=== PATIENT | female | born 1950 | race Caucasian/White ===

== ENCOUNTER → 2019-10-05 10:28 | Outpatient (CLI) | payer MEDICARE, SELFPAY ==
--- NOTE | ~2019-10-05 | MM_ITS ---
EXAMINATION: MM screening jelly BI w elise HISTORY: Screening mammogram TECHNIQUE: Craniocaudal and mediolateral oblique 3-D tomosynthesis images were obtained and synthetic 2-D images were generated. CAD analysis was submitted and interpreted. COMPARISON: No prior mammogram is available for comparison at this institution. BREAST PARENCHYMAL COMPOSITION: The breasts are heterogeneously dense, which may obscure small masses . FINDINGS: There is no evidence of suspicious mass, calcification, or architectural distortion to sugg est malignancy in either breast. There has been no suspicious interval change. IMPRESSION: 1. No mammographic evidence of malignancy. 2. Recommend routine screening mammography in one year. BI-RADS Category 1: Negative Reviewed, dictated and finalized at location A. IGHTEDGE MAN
--- NOTE | ~2019-10-05 | DEXA_ITS ---
Bone Density Report Name: Natasha Brody Age: 69 Sex: Female Ethnicity: White Date of : 1950 Indication: postmenopausal; screening for osteoporosis; Referring Provider: ALBER GARCIA Study: Bone densitometry was performed. Exam Date: October 05, 2019 Accession number: [id number] Bone Density: Region BMD T-score Z-score Classification AP Spine (L1-L4) 0.994 -0.5 1.6 Normal Femoral Neck (Left) 0.677 -1.6 0.2 Osteopenia Total Hip (Left) 0.749 -1.6 -0.1 Osteopenia Femoral Neck (Right) 0.608 -2.2 -0.4 Osteopenia Total Hip (Right) 0.720 -1.8 -0.3 Osteopenia Total Hip Mean 0.735 -1.7 -0.2 Osteopenia World Health Organization criteria for BMD impression classify patients as: Normal (T-score at or above -1.0), Osteopenia (T-score between -1.0 and -2.5), or Osteoporosis (T-score at or below -2.5). 10-year Fracture Risk(1): Major Osteoporotic Fracture 12% Hip Fracture 2.6% Reported Risk Factors: [place] (), Neck BMD=0.608, BMI=23.4 (1) FRAX(R) Version 3.08. Fracture probability calculated for an untreated patient. Fracture probability may be lower if the patient has received treatment. Previous Exams: Region Exam Age BMD T-score BMD Change BMD Change Date g/cm2 vs Baseline vs Previous AP Spine(L1-L4) 10/05/2019 69 0.994 -0.5 0.039* 0.039* 04/11/2005 54 0.955 -0.8 Total Hip(Left) 10/05/2019 69 0.749 -1.6 -0.107* -0.107* 04/11/2005 54 0.856 -0.7 Total Hip(Right) 10/05/2019 69 0.720 -1.8 -0.097* -0.097* 04/11/2005 54 0.817 -1.0 *Denotes significance at 95% confidence level, LSC for AP Spine = 0.022 g/cm2, LSC for Total Hip = 0.027 g/cm2 Clinical Information Provided by Patient: Has used the following medications: Vitamin D, Calcium Patient maximum height was 64.3 Menopause Age: 54 Drinks caffeinated beverages Onset of menses at age 11 Number of children 0 Impression: The patient has low bone mass, based on the Right Femoral Neck T-score. The patient has an estimated ten-year risk of hip fracture of 2.6% and an estimated ten-year risk of major fracture of 12%, based on the WHO FRAX algorithm. The BMD for the Total Hip(Left) decreased, changing by -0.107 since the last DXA exam. The BMD for the Total Hip(Right) decreased, changing by -0.097 since the last DXA exam. Discussion: BONE DENSITY IS LOW AT ONE OR MORE SKELETAL SITES. This patient's lowest T-score is low
== END ==
PROVIDERS: PCP Internal Medicine; Visit Provider Internal Medicine
DX: Z12.31 Encounter for screening mammogram for malignant neoplasm of breast (principal); Z78.0 Asymptomatic menopausal state; M85.852 Other specified disorders of bone density and structure, left thigh; M85.851 Other specified disorders of bone density and structure, right thigh
CPT/HCPCS: 77063; 77067; 77080

== ENCOUNTER → 2021-11-02 12:32 | Outpatient (CLI) | payer MEDICARE, SELFPAY ==
--- NOTE | ~2021-11-02 | MM_ITS ---
EXAMINATION: MM screening jelly BI w elise HISTORY: Screening mammogram TECHNIQUE: Craniocaudal and mediolateral oblique 3-D tomosynthesis images were obtained and synthetic 2-D images were generated. CAD analysis was submitted and interpreted. COMPARISON: 11/01/2019 bilateral screening mammogram BREAST PARENCHYMAL COMPOSITION: The breasts are heterogeneously dense, which may obscure small masses . FINDINGS: There is no evidence of suspicious mass, calcification, or architectural distortion to sugg est malignancy in either breast. There has been no suspicious interval change. IMPRESSION: 1. No mammographic evidence of malignancy. 2. Recommend routine screening mammography in one year. BI-RADS Category 1: Negative Reviewed, dictated and finalized at location A.
== END ==
PROVIDERS: PCP Internal Medicine; Visit Provider Internal Medicine
DX: Z12.31 Encounter for screening mammogram for malignant neoplasm of breast (principal)
CPT/HCPCS: 77063; 77067

== ENCOUNTER → 2022-03-28 10:15 | Outpatient (CLI) | payer MEDICARE, SELFPAY ==
--- NOTE | ~2022-03-28 | XR_ITS ---
EXAMINATION:[id number] DATE: 03/28/2022 10:38 INDICATION: Neck pain TECHNIQUE: AP, lateral, lateral swimmers and odontoid views of the cervical spine are provided. COMPARISON: None FINDINGS: There are 2 mm of anterolisthesis of C3 on C4. The odontoid is intact. No fracture is ident ified. The vertebral body heights are normal. There is severe loss of intervertebral disc space at C4 -5, C5-6, and C6-7. There is moderate to severe multilevel facet and uncovertebral joint osteoarthrit is. Prevertebral soft tissues are normal. IMPRESSION: 1. Severe cervical spondylosis without acute findings. Reviewed, dictated and finalized at location B.
== END ==
PROVIDERS: PCP Internal Medicine; Visit Provider Internal Medicine
DX: M54.2 Cervicalgia (principal); M47.812 Spondylosis without myelopathy or radiculopathy, cervical region
CPT/HCPCS: 72040

== ENCOUNTER 2022-05-29 15:51 | Outpatient (CLI) | payer MEDICARE, SELFPAY ==
--- NOTE | ~2022-05-29 | DEXA_ITS ---
Bone Density Report Name: KRISTOPHER CARTER Age: 71 Sex: Female Ethnicity: White Date of : 1950 Indication: postmenopausal; screening for osteoporosis; inflammatory bowel disease; Referring Provider: DAVID SCHAFFER Study: Bone densitometry was performed. Exam Date: May 29, 2022 Accession number: [id number] Bone Density: Region BMD T-score Z-score Classification AP Spine(L1-L4) 1.039 -0.1 2.2 Normal Femoral Neck (Left) 0.618 -2.1 -0.1 Osteopenia Total Hip (Left) 0.758 -1.5 0.2 Osteopenia Femoral Neck (Right) 0.637 -1.9 0.0 Osteopenia Total Hip (Right) 0.757 -1.5 0.1 Osteopenia Total Hip Mean 0.758 -1.5 0.2 Osteopenia World Health Organization criteria for BMD impression classify patients as: Normal (T-score at or above -1.0), Osteopenia (T-score between -1.0 and -2.5), or Osteoporosis (T-score at or below -2.5). 10-year Fracture Risk(1): Major Osteoporotic Fracture 12% Hip Fracture 2.9% Reported Risk Factors: [place] (), Neck BMD=0.618, BMI=23.2 (1) FRAX(R) Version 3.08. Fracture probability calculated for an untreated patient. Fracture probability may be lower if the patient has received treatment. Clinical Information Provided by Patient: Has used the following medications: Vitamin D, Calcium Has the following medical conditions: Inflammatory bowel diseases Patient maximum height was 64.25 Menopause Age: 41 Onset of menses at age 11 Number of children 0 Impression: The patient has low bone mass, based on the Left Femoral Neck T-score. The patient has an estimated ten-year risk of hip fracture of 2.9% and an estimated ten-year risk of major fracture of 12%, based on the WHO FRAX algorithm. Discussion: BONE DENSITY IS LOW AT ONE OR MORE SKELETAL SITES. This patient's lowest T-score is low at one or more skeletal sites. It meets the World Health Organization's (WHO) criteria for ?low bone mass? (T-score between -1.0 and -2.5). The patient's 10-year risk of fracture as calculated by FRAX is less than the threshold where pharmacological therapy is recommended by the National Osteoporosis Foundation (NOF). However, all treatment decisions require clinical judgment and consideration of individual patient factors, including patient preferences, comorbidities, previous drug use, risk factors not captured in the FRAX model (e.g., frailty, falls, vitamin D deficiency, increased bone turnover, interval significant decline in bone density) and possible under or overestimation of fracture risk by FRAX. The patient should follow a healthful lifestyle (good nutrition with adequate calcium and vitamin D, and appropriate weight-bearing exercise). Follow-Up: Consider repeating this study in 2 to 3 years to reassess this patient's status, or sooner if there is some new clin
== END 2022-05-29 15:52 | disposition home or self-care (01) ==
PROVIDERS: PCP Internal Medicine; Visit Provider Internal Medicine
DX: Z78.0 Asymptomatic menopausal state (principal); M85.89 Other specified disorders of bone density and structure, multiple sites
CPT/HCPCS: 77080

== ENCOUNTER 2022-11-30 08:09 | Outpatient (CLI) | payer MEDICARE, SELFPAY ==
--- NOTE | ~2022-11-30 | MR_ITS ---
MRI of the cervical spine Clinical History: Abnormal cervical spine x-ray Technique: Axial T2-weighted and gradient images, and sagittal T1-weighted, T2-weighted, and STIR cindy ges were acquired. Findings: There is mild reversal normal cervical lordosis. 2 mm anterolisthesis of C3 over C4 present . 2 mm anterolisthesis of C4 over C5 present. No suspicious bone marrow signal abnormality seen. At C2-C3, there is no significant disc bulge or herniation. No spinal canal stenosis, cord compressio n, or neural foraminal narrowing. At C3-C4, there is minimal disc osteophyte complex. No spinal canal stenosis or cord compression. The re is probable mild bilateral facet arthropathy, possible minimal left neural foraminal narrowing. Ri ght neural foramen preserved. At C4-C5, there is moderate degenerative disc narrowing. There is minimal disc osteophyte complex. No spinal canal stenosis or cord compression. Probable minimal bilateral neural foraminal narrowing. At C5-C6, there is moderate degenerative disc narrowing with mild disc bulge. No spinal canal stenosi s or cord compression. There is bilateral neural foraminal narrowing, right worse than left. At C6-C7, there is moderate degenerative disc narrowing. There is minimal disc bulge. No spinal canal stenosis or cord compression. There is probable mild bilateral neural foraminal narrowing, left wors e than right. No abnormal signal seen in the spinal cord. Paravertebral soft tissues are unremarkable. Impression: Mild degenerative spondylosis, as detailed above. 2 mm anterolisthesis of C3 over C4. 2 mm anterolisthesis of C4 over C5. Reviewed, dictated and finalized at [facility]. Impression: Mild degenerative spondylosis, as detailed above. 2 mm anterolisthesis of C3 over C4. 2 mm anterolisthesis of C4 over C5.
== END 2022-11-30 08:10 | disposition home or self-care (01) ==
PROVIDERS: PCP Family Medicine; Visit Provider Family Medicine
DX: M47.812 Spondylosis without myelopathy or radiculopathy, cervical region (principal)
CPT/HCPCS: 72141

== ENCOUNTER 2022-12-10 10:09 | Outpatient (CLI) | payer MEDICARE, SELFPAY ==
--- NOTE | ~2022-12-10 | US_ITS ---
US abdomen limited INDICATION: Gallbladder disease. PROCEDURE: Realtime right upper abdominal ultrasound. COMPARISON: 04/07/2019 FINDINGS: The pancreas is normal without focal mass or pancreatic ductal dilation. Liver echotexture is normal without focal mass or intrahepatic biliary dilatation. There is normal directional flow i n the portal vein. The gallbladder is normal without stones, gallbladder wall thickening or pericholecystic fluid. Comm on bile duct measures 5 mm. No sonographic Lamb's sign. IMPRESSION: 1: Normal limited abdominal ultrasound. Reviewed, dictated and finalized at location L.
== END 2022-12-10 10:10 | disposition home or self-care (01) ==
PROVIDERS: PCP Family Medicine; Visit Provider Family Medicine
DX: R10.10 Upper abdominal pain, unspecified (principal); G89.29 Other chronic pain
CPT/HCPCS: 76705

== ENCOUNTER 2023-03-26 07:51 | Outpatient (CLI) | payer MEDICARE, SELFPAY ==
[2023-03-26 08:54] LABS: Hematocrit 46.5 % (37.0-47.0); Hemoglobin 15.1 g/dL (12.0-15.0); Mean Corpuscular HGB Conc 32.5 g/dl (32-36); Mean Corpuscular Hemoglobin 29.7 pg (26-34); Mean Corpuscular Volume 91.5 fl (80-100); Mean Platelet Volume 8.8 fl (7.4-10.4); Platelet Count Result 550 k/mm3 (150-375); Red Blood Count 5.08 M/mm3 (4.2-5.4); Red Cell Distribution Width 14.6 % (11.5-14.5); White Blood Count 6.9 K/mm3 (4.5-10.0)
== END 2023-03-26 07:52 | disposition home or self-care (01) ==
PROVIDERS: PCP Family Medicine; Visit Provider Family Medicine
DX: R79.89 Other specified abnormal findings of blood chemistry (principal); E03.9 Hypothyroidism, unspecified
CPT/HCPCS: 36415; 82728; 85027

== ENCOUNTER 2023-06-16 08:03 | Outpatient (CLI) | payer MEDICARE, SELFPAY ==
[2023-06-16 08:51] LABS: Basophils Percent Auto 0.5 % (0.2-1.2); Eosinophils Absolute Auto 0.1 K/mm3 (0-0.3); Eosinophils Percent Auto 0.6 % (0-4.4); Hematocrit 44.2 % (37.0-47.0); Hemoglobin 14.4 g/dL (12.0-15.0); Immature Granulocyte Absolute 0.04 K/mm3 (0.00-0.031); Immature Granulocyte Percent A 0.5 % (0-0.5); Lymphocytes Absolute Auto 1.31 K/mm3 (0.9-3.2); Lymphocytes Percent Auto 16.1 % (18.3-44.2); Mean Corpuscular HGB Conc 32.6 g/dl (32-36); Mean Corpuscular Hemoglobin 29.5 pg (26-34); Mean Corpuscular Volume 90.6 fl (80-100); Mean Platelet Volume 8.9 fl (7.4-10.4); Monocytes Absolute Auto 0.8 K/mm3 (0.1-0.6); Monocytes Percent Auto 10.3 % (2.6-8.5); Neutrophils Absolute Auto 5.9 K/mm3 (1.3-6.7); Platelet Count Result 537 k/mm3 (150-375); Red Blood Count 4.88 M/mm3 (4.2-5.4); Red Cell Distribution Width 14.6 % (11.5-14.5); White Blood Count 8.2 K/mm3 (4.5-10.0)
== END 2023-06-16 08:04 | disposition home or self-care (01) ==
LOC: ANHLAB 08:05
PROVIDERS: PCP Family Medicine; Visit Provider Family Medicine
DX: R79.89 Other specified abnormal findings of blood chemistry (principal)
CPT/HCPCS: 36415; 85025

== ENCOUNTER 2023-07-12 13:27 | Outpatient (CLI) | payer MEDICARE, SELFPAY ==
--- NOTE | ~2023-07-12 | MR_ITS ---
MRI of the brain Clinical History: Dizziness and giddiness Technique: Axial and sagittal T1-weighted images were acquired. These were followed by axial T2-weigh juanito, diffusion weighted, gradient, and FLAIR images. Findings: There is no acute infarct, internal hemorrhage, or mass lesion. There are mild chronic whit e matter changes in the periventricular white matter bilaterally. Ventricles and subarachnoid spaces are unremarkable. Orbits are unremarkable. Paranasal sinuses and m astoid air cells are clear. Major intracranial flow voids are intact. Sagittal midline structures are intact. IMPRESSION: Mild chronic microvascular ischemic change, otherwise unremarkable exam. Reviewed, dictated and finalized at location M. PER
== END 2023-07-12 13:28 | disposition home or self-care (01) ==
PROVIDERS: PCP Family Medicine; Visit Provider Family Medicine
DX: R42 Dizziness and giddiness (principal); R68.89 Other general symptoms and signs
CPT/HCPCS: 70551

== ENCOUNTER 2023-07-22 15:53 | Outpatient (CLI) | payer MEDICARE, SELFPAY ==
[2023-07-22 16:42] LABS: Basophils Absolute Auto 0.1 K/mm3 (0.0-0.1); Basophils Percent Auto 0.5 % (0.2-1.2); Eosinophils Absolute Auto 0.1 K/mm3 (0-0.3); Eosinophils Percent Auto 0.5 % (0-4.4); Hematocrit 44.1 % (37.0-47.0); Hemoglobin 14.9 g/dL (12.0-15.0); Immature Granulocyte Absolute 0.04 K/mm3 (0.00-0.031); Immature Granulocyte Percent A 0.4 % (0-0.5); Lymphocytes Absolute Auto 1.29 K/mm3 (0.9-3.2); Lymphocytes Percent Auto 13.2 % (18.3-44.2); Mean Corpuscular HGB Conc 33.8 g/dl (32-36); Mean Corpuscular Hemoglobin 30.3 pg (26-34); Mean Corpuscular Volume 89.8 fl (80-100); Mean Platelet Volume 8.6 fl (7.4-10.4); Monocytes Percent Auto 10.3 % (2.6-8.5); Neutrophils Absolute Auto 7.3 K/mm3 (1.3-6.7); Neutrophils Percent Auto 75.1 % (45.5-73.1); Platelet Count Result 547 k/mm3 (150-375); Red Blood Count 4.91 M/mm3 (4.2-5.4); Red Cell Distribution Width 14.5 % (11.5-14.5); White Blood Count 9.8 K/mm3 (4.5-10.0)
[2023-07-22 16:57] LABS: Erythrocyte Sedimentation Rate 6 mm/hr (0-20)
[2023-07-22 18:45] LABS: Iron 54 ug/dL (37-170)
[2023-07-22 18:58] LABS: Percent Iron Saturation 17 % (20-50)
[2023-07-22 19:58] LABS: Alanine Aminotransferase 22 U/L (6-35); Albumin Level 4.7 g/dL (3.5-5.1); Alkaline Phosphatase 69 U/L (38-126); Anion Gap 12 mmol/L (8-16); Aspartate Amino Transferase 36 U/L (14-36); Bilirubin,Total 0.5 mg/dL (0.2-1.3); Blood Urea Nitrogen 15 mg/dL (7-17); CRP < 0.5 mg/dL (<1.0); Calcium 9.9 mg/dL (8.4-10.2); Carbon Dioxide 22 mmol/L (22-30); Chloride 102 mmol/L (98-107); Estimated Glomerular Filt Rate > 60; Glucose 97 mg/dL (65-110); Potassium 4.2 mmol/L (3.4-5.0); Sodium 136 mmol/L (137-145)
[2023-07-30 12:06] LABS: Block/Specimen ID Not Given; Exon 14; Gene JAK2; JAK2 V617F Mutation Detected (Not Detected); Mutation Frequency 9.7; Mutation Type missense; Specimen Source Blood
== END 2023-07-22 15:54 | disposition home or self-care (01) ==
LOC: ANHLAB 15:55
PROVIDERS: Nurse Practitioner Family; PCP Family Medicine; Visit Provider Internal Medicine Hematology & Oncology
DX: D75.838 Other thrombocytosis (principal); D64.9 Anemia, unspecified
CPT/HCPCS: 36415; 80053; 81270; 82728; 83540; 83550; 85025; 85652; 86140

== ENCOUNTER 2023-10-02 08:20 | Outpatient (CLI) | payer MEDICARE, SELFPAY ==
[2023-10-02 08:43] LABS: Hematocrit 41.5 % (37.0-47.0); Hemoglobin 14.1 g/dL (12.0-15.0); Mean Corpuscular Hemoglobin 31.7 pg (26-34); Mean Corpuscular Volume 93.3 fl (80-100); Mean Platelet Volume 8.6 fl (7.4-10.4); Platelet Count Result 416 k/mm3 (150-375); Red Blood Count 4.45 M/mm3 (4.2-5.4); Red Cell Distribution Width 17.2 % (11.5-14.5)
[2023-10-02 12:04] LABS: Alanine Aminotransferase 21 U/L (6-35); Albumin Level 4.4 g/dL (3.5-5.1); Alkaline Phosphatase 63 U/L (38-126); Anion Gap 3 mmol/L (8-16); Aspartate Amino Transferase 34 U/L (14-36); Bilirubin,Total 0.7 mg/dL (0.2-1.3); Blood Urea Nitrogen 12 mg/dL (7-17); Calcium 9.7 mg/dL (8.4-10.2); Carbon Dioxide 30 mmol/L (22-30); Chloride 104 mmol/L (98-107); Estimated Glomerular Filt Rate > 60; Glucose 91 mg/dL (65-110); Potassium 4.2 mmol/L (3.4-5.0); Sodium 137 mmol/L (137-145); Uric Acid 2.5 mg/dL (2.5-7.5)
== END 2023-10-02 08:21 | disposition home or self-care (01) ==
LOC: ANHLAB 08:25
PROVIDERS: Nurse Practitioner Family; PCP Family Medicine; Visit Provider Internal Medicine Hematology & Oncology
DX: E03.9 Hypothyroidism, unspecified (principal); E78.5 Hyperlipidemia, unspecified; F41.9 Anxiety disorder, unspecified; M54.2 Cervicalgia; M85.89 Other specified disorders of bone density and structure, multiple sites; R42 Dizziness and giddiness; D47.3 Essential (hemorrhagic) thrombocythemia
CPT/HCPCS: 36415; 80053; 84443; 84550; 85027

== ENCOUNTER 2023-10-23 14:58 | Outpatient (CLI) | payer MEDICARE, SELFPAY ==
[2023-10-23 17:21] LABS: D Dimer < 0.27 ug/mL (<0.48)
== END 2023-10-23 14:59 | disposition home or self-care (01) ==
LOC: ANHLAB 15:01
PROVIDERS: PCP Family Medicine; Visit Provider Nurse Practitioner Family
DX: R23.8 Other skin changes (principal); M79.89 Other specified soft tissue disorders
CPT/HCPCS: 36415; 85380

== ENCOUNTER 2024-01-06 08:36 | Outpatient (CLI) | payer MEDICARE, SELFPAY ==
[2024-01-06 09:05] LABS: Hematocrit 41.3 % (37.0-47.0); Hemoglobin 14.2 g/dL (12.0-15.0); Mean Corpuscular HGB Conc 34.4 g/dl (32-36); Mean Corpuscular Hemoglobin 35.1 pg (26-34); Mean Platelet Volume 8.4 fl (7.4-10.4); Platelet Count Result 378 k/mm3 (150-375); Red Blood Count 4.05 M/mm3 (4.2-5.4); Red Cell Distribution Width 13.9 % (11.5-14.5); White Blood Count 6.3 K/mm3 (4.5-10.0)
[2024-01-06 10:21] LABS: Anion Gap 5 mmol/L (4-12); Blood Urea Nitrogen 17 mg/dL (7-17); Calcium 9.6 mg/dL (8.4-10.2); Carbon Dioxide 27 mmol/L (22-30); Chloride 105 mmol/L (98-107); Estimated Glomerular Filt Rate > 60; Glucose 96 mg/dL (65-110); Potassium 4.2 mmol/L (3.4-5.0); Sodium 137 mmol/L (137-145)
== END 2024-01-06 08:37 | disposition home or self-care (01) ==
PROVIDERS: Nurse Practitioner Family; PCP Family Medicine; Visit Provider Internal Medicine Hematology & Oncology
DX: D47.3 Essential (hemorrhagic) thrombocythemia (principal)
CPT/HCPCS: 36415; 80048; 85027

== ENCOUNTER 2024-02-10 15:28 | Outpatient (CLI) | payer MEDICARE, SELFPAY ==
--- NOTE | ~2024-02-10 | MM_ITS ---
EXAMINATION: MM screening jelly BI w elise HISTORY: Screening TECHNIQUE: Craniocaudal and mediolateral oblique 3-D tomosynthesis images were obtained and synthetic 2-D images were generated. CAD analysis was submitted and interpreted. COMPARISON: Comparison to multiple prior studies sequentially, with oldest reviewed study dated 10/2019. BREAST PARENCHYMAL COMPOSITION: Not dense: There are scattered areas of fibroglandular density. FINDINGS: There is no evidence of suspicious mass, calcification, or architectural distortion to sugg est malignancy in either breast. There has been no suspicious interval change. IMPRESSION: 1. No mammographic evidence of malignancy. 2. Recommend routine screening mammography in one year. BI-RADS Category 1: Negative Reviewed, dictated and finalized at location B.
== END 2024-02-10 15:29 ==
LOC: MICIMG 15:29
PROVIDERS: PCP Family Medicine; Visit Provider Family Medicine
DX: Z12.31 Encounter for screening mammogram for malignant neoplasm of breast (principal)
CPT/HCPCS: 77063; 77067

== ENCOUNTER 2024-02-24 08:37 | Outpatient (CLI) | payer MEDICARE, SELFPAY ==
[2024-02-24 08:52] LABS: Basophils Absolute Auto 0.1 K/mm3 (0.0-0.1); Basophils Percent Auto 0.7 % (0.2-1.2); Eosinophils Percent Auto 0.5 % (0-4.4); Hematocrit 43.9 % (37.0-47.0); Hemoglobin 14.9 g/dL (12.0-15.0); Immature Granulocyte Absolute 0.03 K/mm3 (0.00-0.031); Immature Granulocyte Percent A 0.4 % (0-0.5); Lymphocytes Percent Auto 14.7 % (18.3-44.2); Mean Corpuscular HGB Conc 33.9 g/dl (32-36); Mean Corpuscular Hemoglobin 34.2 pg (26-34); Mean Corpuscular Volume 100.7 fl (80-100); Mean Platelet Volume 8.7 fl (7.4-10.4); Monocytes Absolute Auto 0.8 K/mm3 (0.1-0.6); Monocytes Percent Auto 10.7 % (2.6-8.5); Neutrophils Absolute Auto 5.5 K/mm3 (1.3-6.7); Platelet Count Result 509 k/mm3 (150-375); Red Blood Count 4.36 M/mm3 (4.2-5.4); Red Cell Distribution Width 13.2 % (11.5-14.5); White Blood Count 7.5 K/mm3 (4.5-10.0)
[2024-02-24 11:59] LABS: Alanine Aminotransferase 20 U/L (6-35); Albumin Level 4.6 g/dL (3.5-5.1); Alkaline Phosphatase 61 U/L (38-126); Anion Gap 10 mmol/L (4-12); Aspartate Amino Transferase 33 U/L (14-36); Bilirubin,Total 0.8 mg/dL (0.2-1.3); Blood Urea Nitrogen 14 mg/dL (7-17); Calcium 9.7 mg/dL (8.4-10.2); Carbon Dioxide 26 mmol/L (22-30); Chloride 101 mmol/L (98-107); Estimated Glomerular Filt Rate > 60; Glucose 101 mg/dL (65-110); Potassium 4.1 mmol/L (3.4-5.0); Sodium 137 mmol/L (137-145)
== END 2024-02-24 08:38 | disposition home or self-care (01) ==
LOC: ANHLAB 08:39
PROVIDERS: PCP Family Medicine; Visit Provider Internal Medicine Hematology & Oncology
DX: D47.3 Essential (hemorrhagic) thrombocythemia (principal)
CPT/HCPCS: 36415; 80053; 85025

== ENCOUNTER 2024-03-12 09:39 | Outpatient (CLI) | payer MEDICARE, SELFPAY ==
[2024-03-12 13:29] LABS: IFOB Positive Control Positive; Immunochemical Fecal Occult Bl Negative (N)
== END 2024-03-12 09:40 | disposition home or self-care (01) ==
PROVIDERS: PCP Family Medicine; Visit Provider Internal Medicine Hematology & Oncology
DX: D64.9 Anemia, unspecified (principal); K92.2 Gastrointestinal hemorrhage, unspecified
CPT/HCPCS: 82274

== ENCOUNTER 2024-04-12 08:21 | Outpatient (CLI) | payer MEDICARE, SELFPAY ==
[2024-04-12 08:42] LABS: Basophils Percent Auto 0.7 % (0.2-1.2); Eosinophils Percent Auto 0.5 % (0-4.4); Hematocrit 43.6 % (37.0-47.0); Hemoglobin 14.8 g/dL (12.0-15.0); Immature Granulocyte Absolute 0.04 K/mm3 (0.00-0.031); Immature Granulocyte Percent A 0.7 % (0-0.5); Lymphocytes Absolute Auto 1.16 K/mm3 (0.9-3.2); Lymphocytes Percent Auto 19.1 % (18.3-44.2); Mean Corpuscular HGB Conc 33.9 g/dl (32-36); Mean Corpuscular Hemoglobin 33.9 pg (26-34); Mean Corpuscular Volume 99.8 fl (80-100); Mean Platelet Volume 8.6 fl (7.4-10.4); Monocytes Absolute Auto 0.6 K/mm3 (0.1-0.6); Monocytes Percent Auto 10.2 % (2.6-8.5); Neutrophils Absolute Auto 4.2 K/mm3 (1.3-6.7); Neutrophils Percent Auto 68.8 % (45.5-73.1); Platelet Count Result 542 k/mm3 (150-375); Red Blood Count 4.37 M/mm3 (4.2-5.4); Red Cell Distribution Width 14.1 % (11.5-14.5); White Blood Count 6.1 K/mm3 (4.5-10.0)
[2024-04-12 10:22] LABS: Cholesterol 176 mg/dL (0-200); HDL Direct 103 mg/dL; Triglycerides 56 mg/dL (<150)
[2024-04-12 10:27] LABS: Anion Gap 9 mmol/L (4-12); Blood Urea Nitrogen 14 mg/dL (7-17); Calcium 9.3 mg/dL (8.4-10.2); Carbon Dioxide 28 mmol/L (22-30); Chloride 97 mmol/L (98-107); Estimated Glomerular Filt Rate > 60; Glucose 95 mg/dL (65-110); Potassium 4.1 mmol/L (3.4-5.0); Sodium 134 mmol/L (137-145)
[2024-04-12 10:33] LABS: LDL Cholesterol Direct 51 mg/dL
[2024-04-12 10:37] LABS: Vitamin D 25 Hydroxy 45.6 ng/mL
== END 2024-04-12 08:22 | disposition home or self-care (01) ==
LOC: ANHLAB 08:23
PROVIDERS: PCP Family Medicine; Visit Provider Internal Medicine Hematology & Oncology
DX: E03.9 Hypothyroidism, unspecified (principal); F41.9 Anxiety disorder, unspecified; R07.89 Other chest pain; R68.89 Other general symptoms and signs; R42 Dizziness and giddiness; D47.3 Essential (hemorrhagic) thrombocythemia; M85.89 Other specified disorders of bone density and structure, multiple sites
CPT/HCPCS: 36415; 80048; 80061; 82306; 82607; 84443; 85025; 85027

== ENCOUNTER 2024-07-19 09:34 | Outpatient (CLI) | payer MEDICARE, SELFPAY ==
[2024-07-19 10:06] LABS: Basophils Percent Auto 0.3 % (0.2-1.2); Eosinophils Percent Auto 0.3 % (0-4.4); Hematocrit 45.2 % (37.0-47.0); Hemoglobin 15.5 g/dL (12.0-15.0); Immature Granulocyte Absolute 0.06 K/mm3 (0.00-0.031); Immature Granulocyte Percent A 0.7 % (0-0.5); Lymphocytes Absolute Auto 1.02 K/mm3 (0.9-3.2); Lymphocytes Percent Auto 11.7 % (18.3-44.2); Mean Corpuscular HGB Conc 34.3 g/dl (32-36); Mean Corpuscular Volume 96.4 fl (80-100); Mean Platelet Volume 8.7 fl (7.4-10.4); Monocytes Absolute Auto 1.1 K/mm3 (0.1-0.6); Monocytes Percent Auto 12.6 % (2.6-8.5); Neutrophils Absolute Auto 6.5 K/mm3 (1.3-6.7); Neutrophils Percent Auto 74.4 % (45.5-73.1); Platelet Count Result 590 k/mm3 (150-375); Red Blood Count 4.69 M/mm3 (4.2-5.4); Red Cell Distribution Width 14.1 % (11.5-14.5); White Blood Count 8.7 K/mm3 (4.5-10.0)
[2024-07-19 12:06] LABS: Anion Gap 7 mmol/L (4-12); Blood Urea Nitrogen 11 mg/dL (7-17); Calcium 9.6 mg/dL (8.4-10.2); Carbon Dioxide 25 mmol/L (22-30); Chloride 102 mmol/L (98-107); Estimated Glomerular Filt Rate > 60; Glucose 107 mg/dL (65-110); Potassium 4.3 mmol/L (3.4-5.0); Sodium 134 mmol/L (137-145)
--- OUTSIDE RECORDS SUMMARY | 2024-07-26 10:05 | XMS_ITS | Encounter Summary ---
Author Organization [facility] Address [facility] [facility] [place] [address] Care Team Providers Care Wood And Hardware Outfitter Name Role Phone Lex Grimm MD Primary Care Provider [phone] Encounter Details Date Type Department Care Team (Latest Contact Info) Description 03/24/2018 Abstract [facility] , Tigre Vásquez MD Social History Tobacco Use Types Packs/Day Years Used Date Smoking Tobacco: Never Assessed Comments Unknown Sex and Gender Information Value Date Recorded Sex Assigned at Not on file Legal Sex Female 4:31 PM CDT Gender Identity Not on file Sexual Orientation Not on file documented as of this encounter Plan of Treatment Not on file documented as of this encounter Visit Diagnoses Not on filedocumented in this encounter Care Teams Wood And Hardware Outfitter Relationship Specialty Start Date End Date Lex Grimm MD PCP - General 09/16/16 documented as of this encounter
--- OUTSIDE RECORDS SUMMARY | 2024-07-26 10:05 | XMS_ITS | Encounter Summary ---
Author Organization [facility] Address [address] [place] [address]. [place], [place] [address] [place] [address] Care Team Providers Care Client Director Name Role Phone Lex Grimm MD Primary Care Provider [phone] Encounter Details Date Type Department Care Team (Late st Contact Info) Description 09/16/2016 Abstract [facility] Physical Therapy [address] [place] [address] Rudy Fraser MD [address] [place] [address] Social History Tobacco Use Types Packs/Day Years Used Date Smoking Tobacco: Never Assessed Comments Unknown Sex and Gender Information Value Date Recorded Sex Assigned at Not on file Legal Sex Female 4:31 PM CDT Gender Identity Not on file Sexual Orientation Not on file documented as of this encounter Plan of Treatment Not on file documented as of this encounter Visit Diagnoses Diagnosis Sprain of ligament of right ankle Sprain of ankle, unspecified site documented in this encounter Care Teams Client Director Relationship Specialty Start Date End Date Lex Grimm MD PCP - General 09/16/16 documented as of this encounter
--- OUTSIDE RECORDS SUMMARY | 2024-07-26 10:05 | XMS_ITS | Encounter Summary ---
Author Organization [facility] - [facility] Address [address] [facility] [place] [address] [place] [address] Care Team Providers Care Petroleum Refinery Laborer Name Role Phone eLx Grimm MD Primary Care Provider [phone] Encounter Details Date Type Department Care Team (Late st Contact Info) Description 09/16/2016 Abstract [facility] Medical Group Multispecialty Care - [facility] [address] [facility] [place] [address] Rudy Fraser MD [address] [place] [address] Social History Tobacco Use Types Packs/Day Years Used Date Smoking Tobacco: Never Assessed Comments Unknown Sex and Gender Information Value Date Recorded Sex Assigned at Not on file Legal Sex Female 4:31 PM CDT Gender Identity Not on file Sexual Orientation Not on file documented as of this encounter Progress Notes * Rudy Fraser MD - 09/16/2016 10:15 AM CST History of Present Illness CHIEF COMPLAINT: Followup of ankle sprain. HISTORY OF PRESENT ILLNESS: Ms. Brody is now back to work. She is almost 3 months off from her injury. She has occasional soreness in the foot but she is doing really well. She is back working 4 hours at a time, taking breaks occasionally. PHYSICAL EXAMINATION: She is alert and oriented. No tenderness to palpation about the medial or lateral malleoli. Good endpoint with tilt and drawer test. No swelling that I can appreciate. IMAGING: None. ASSESSMENT: Doing well status post inversion injury with talar neck avulsion. PLAN: We are going to have her keep working with no restrictions. I will see her back on an as needed basis. She has a brace that she can use if she needs as well. She has asked about orthotics and Ithink she is a pretty normal fit. I do not think she necessarily requires orthotic if she wishes tohave one then certainly that is okay. She says she has some Dr. Clarke's once and she is going to give that a try first. I think that is fine. Active Problems 1. Ankle pain (719.47) (M25.579) 2. Ankle sprain (845.00) (S93.409A) Past Medical History 1. History of Anxiety (300.00) (F41.9) 2. History of depression (V11.8) (Z86.59) 3. History of esophageal reflux (V12.79) (Z87.19) 4. History of thyroid disease (V12.29) (Z86.39) Surgical History 1. Denied: History of Surgery Family History Mother 1. Family history of depression (V17.0) (Z81.8) 2. Family history of hypertension (V17.49) (Z82.49) Father 3. Family history of cerebrovascular accident (CVA) (V17.1) (Z82.3) 4. Family history of depression (V17.0) (Z81.8) Social History ?? Never a smoker ?? Occasional alcohol use ?? Occupation ?? Current Meds 1. ALPRAZolam 0.25 MG Oral Tablet; Therapy: (Recorded:[id number]) to Recorded 2. Citalopram Hydrobromide 10 MG Oral Tablet; Therapy: (Recorded:[id number]) to Recorded 3. Levothroid 25 MCG TABS; Therapy: (Recorded:[id number]) to Recorded 4. Pantoprazole Sodium 20 MG Oral Tablet Delayed Release; Therapy: (Recorded:[id number]) to Recorded Allergies 1. NSAIDs Signatures Electronically signed by : Rudy Fraser M.D.; Sep 17 2016 1:20PM SPA EXPERIENCE COORDINATOR (Author) documented in this encounter Plan of Treatment Not on file documented as of this encounter Visit Diagnoses Not on filedocumented in this encounter Care Teams Petroleum Refinery Laborer Relationship Specialty Start Date End Date Lex Grimm MD PCP - General 09/16/16 documented as of this encounter
--- OUTSIDE RECORDS SUMMARY | 2024-07-26 10:05 | XMS_ITS | Clinical Summary ---
Author Organization [facility] Address [address] [place] [address]. [place], [place] [address] [place] [address] Care Team Providers Care Dough Cutter Name Role Phone Lex Grimm MD Primary Care Provider Social History Tobacco Use Types Packs/Day Years Used Date Smoking Tobacco: Never Assessed Comments Unknown Sex and Gender Information Value Date Recorded Sex Assigned at Not on file Legal Sex Female 4:31 PM CDT Gender Identity Not on file Sexual Orientation Not on file Last Filed Vital Signs Vital Sign Reading Time Taken Comments Blood Pressure 142/82 08/19/2016 10:29 AM ESCORT SERVICE ATTENDANT Pulse - - Temperature - - Respiratory Rate - - Oxygen Saturation - - Inhaled Oxygen Concentration - - Weight 52.6 kg (116 lb) 07/05/2016 8:46 AM ESCORT SERVICE ATTENDANT Height 163.8 cm (5' 4.5 ) 07/05/2016 8:46 AM ESCORT SERVICE ATTENDANT Body Mass Index 19.6 07/05/2016 8:46 AM ESCORT SERVICE ATTENDANT Plan of Treatment Health Maintenance Due Date Last Done Comments Colorectal Cancer Screening Colonoscopy (10 Years) 1950 Hepatitis C 1967 DTaP, Tdap and Td Vaccines ( 1 - Tdap) 1968 Mammogram Screening 1989 Zoster Vaccines (1 of 2) 1999 Dexa Scan (General) 2014 Pneumococcal Vaccine: 65+ Ye ars (1 of 1 - PCV) 2014 COVID-19 Vaccine ( - 2023-2 5 season) 2024 Influenza Adult (#1) 2024 RSV Immunization or 60+ Years (1 - 1-dose 75+ series) 2024 Meningococcal Vaccine Aged Out No joseph gwyn eligible based on patient's age to complete this topic RSV Immunizations Under 20 Months Aged Out No longer eligible based on patient's age to complete this topic Care Teams Dough Cutter Relationship Specialty Start Date End Date Lex Grimm MD PCP - General 09/16/16
--- OUTSIDE RECORDS SUMMARY | 2024-07-26 10:06 | XMS_ITS | Encounter Summary ---
Author Organization [facility] Address [address] [place] [address]. [place] [id number] [place] [address] Care Team Providers Care Wedding Photographer Name Role Phone Lex Grimm MD Primary Care Provider [phone] Lex Grimm MD Primary Care Provider [phone] Encounter Details Date Type Department Care Team (Latest Contact Info) Description 09/12/2016 Abstract [facility] Medical [facility] Social History Tobacco Use Types Packs/Day Years [...] on filedocumented in this encounter Care Teams Wedding Photographer Relationship Specialty Start Date End Date Lex Grimm MD PCP - General 09/16/16 Lex Grimm MD PCP - General 09/12/16 09/15/16 documented as of this encounter
--- OUTSIDE RECORDS SUMMARY | 2024-07-26 10:06 | XMS_ITS | Encounter Summary ---
Author Organization [facility] Address [facility] [place] [address] [place] [address] Care Team Providers Care Electronic Communications Technician Name Role Phone Lex Grimm MD Primary Care Provider + Lex Grimm MD Primary Care Provider + Lex Grimm MD Primary Care Provider + Lex Grimm MD Primary Care Provider [phone] Lex Grimm MD Primary Care Provider +[phone] Lex Grimm MD Primary Care Provider +[phone] Lex Grimm MD Primary Care Provider +[phone] Lex Grimm MD Primary Care Provider +[phone] Lex Grimm MD Primary Care Provider + [phone] Encounter Details Date Type Department Care Team (Late st Contact Info) Description 08/19/2016 Abstract [facility] Multispecialty Care - [facility] [address] [facility] [place] [id number] Rudy Fraser MD [address] [place] [address] Social History Tobacco Use Types Packs/Day Years Used Date Smoking Tobacco: Never Assessed Comments Unknown Sex and Gender Information Value Date Recorded Sex Assigned at Not on file Legal Sex Female 4:31 PM CDT Gender Identity Not on file Sexual Orientation Not on file documented as of this encounter Last Filed Vital Signs Vital Sign Reading Time Taken Comments Blood Pressure 142/82 08/19/2016 10:29 AM DETASSELER Pulse - - Temperature - - Respiratory Rate - - Oxygen Saturation - - Inhaled Oxygen Concentration - - Weight - - Height - - Body Mass Index - - documented in this encounter Progress Notes * Rudy Fraser MD - 08/19/2016 10:00 AM CST History of Present Illness CHIEF COMPLAINT: Followup right ankle sprain. HISTORY OF PRESENT ILLNESS: Ms. Brody is here for followup of her right ankle injury. This was on 06/28/2016. She has been doing physical therapy with Malcolm next door a couple of times a week. Hesays he would like to continue the therapy. He thinks her pain is definitely improving but she is not fully better. She has been out of the lace up ankle brace for a few days now. She continues to have some pain laterally more than medially and some dorsally as well. 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 PHYSICAL EXAMINATION: She is alert and oriented. Mild tenderness over the lateral malleolus. Some tenderness at the dorsal aspect of the talus. She can flex and extend the ankle without problems. Shecan invert and j carlos the ankle without significant problems, although it is a little bit limited interms of range of motion. A little bit of increased play with talar tilt test but not very significant. No increase drawer test, right compared to left. ASSESSMENT: Seven weeks status post right ankle sprain with talar neck avulsion. 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 I plan on seeing her back in a month. If she isdoing a lot better, she certainly can cancel. No x-rays needed. Active Problems 1. Ankle pain (719.47) (M25.579) [...] 1. ALPRAZolam 0.25 MG Oral Tablet; Therapy: (Recorded:[id number]) to Recorded 2. Citalopram Hydrobromide 10 MG Oral Tablet; Therapy: (Recorded:[id number]) to Recorded 3. Levothroid 25 MCG TABS; Therapy: (Recorded:[id number]) to Recorded 4. Pantoprazole Sodium 20 MG Oral Tablet Delayed Release; Therapy: (Recorded:[id number]) to Recorded Allergies 1. NSAIDs Vitals Recorded: 19Aug2016 10:29AM Systolic 142 Diastolic 82 Signatures Electronically signed by : Rudy Fraser M.D.; Aug 22 2016 9:20PM DETASSELER (Author) documented in this encounter Plan of Treatment Not on file documented as of this encounter Visit Diagnoses Not on filedocumented in this encounter Care Teams Electronic Communications Technician Relationship Specialty Start Date End Date Lex Grimm MD PCP - General 09/16/16 Lex Grimm MD PCP - General 09/12/16 09/15/16 Lex Grimm MD PCP - General 09/10/16 09/11/16 Lex Grimm MD PCP - General 09/06/16 09/09/16 Lex Grimm MD PCP - General 09/02/16 09/05/16 Lex Grimm MD PCP - General 08/30/16 09/01/16 Lex Grimm MD PCP - General 08/26/16 08/29/16 Lex Grimm MD PCP - General 08/22/16 08/25/16 Lex Grimm MD PCP - General 08/19/16 08/21/16 documented as of this encounter
--- OUTSIDE RECORDS SUMMARY | 2024-07-26 10:06 | XMS_ITS | Encounter Summary ---
Author Organization [facility] Address [facility]. [place], [place] [address] [place] [address] Care Team Providers Care Mortgage Counselor Name Role Phone Lex Grimm MD Primary [...] Lex Grimm MD Primary Care Provider + Lxe Grimm MD Primary Care Provider + Lex Grimm MD Primary Care Provider + Lex Grimm MD Primary Care Provider + Lex Grimm MD Primary Care Provider + Encounter Details Date Type Department Care Team (Late st Contact Info) Description 07/19/2016 Abstract [facility] Multispecialty Care - [facility] [address] [facility] [place] [address] Rudy Fraser MD [address] [place] [address] Social History Tobacco Use Types Packs/Day Years Used Date Smoking Tobacco: Never Assessed Comments Unknown Sex and Gender Information Value Date Recorded Sex Assigned at Not on file Legal Sex Female 4:31 PM CDT Gender Identity Not on file Sexual Orientation Not on file documented as of this encounter Progress Notes * Rudy Fraser MD - 07/19/2016 10:00 AM CST History of Present Illness CHIEF COMPLAINT: Right ankle sprain. HISTORY OF PRESENT ILLNESS: Ms. Brody injured herself 06/28/2016. I saw her a week later. We gother weightbearing in the boot. She has been doing better. She still has some feeling of weakness and soreness. 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 She has been doing therapy with Malcolm next door. She has had just a couple of visits. She says she is getting better but still hurting some. She wears the boot almost all the time. PHYSICAL EXAMINATION: She is a little bit tender in the ATFL. A little bit tenderness along the posterior tib tendon and peroneals as well. She can dorsiflex, plantarflex, j carlos, and invert, althoughshe has some limitations of range of motion. Ligamentous exam is a little bit difficult today but she appears to have a good endpoint with tilt testing. IMAGING: None today. ASSESSMENT: Three weeks status post ankle sprain with talar neck avulsion fracture. PLAN: We are going to get her into a lace up ankle brace and have her advance her therapy. I am going to see her back in a month for repeat examination. She may go back to work if she wishes. 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 Active Problems 1. Ankle pain (719.47) (M25.579) [...] 1. ALPRAZolam 0.25 MG Oral Tablet; Therapy: (Recorded:[id number]) to Recorded 2. Citalopram Hydrobromide 10 MG Oral Tablet; Therapy: (Recorded:[id number]) to Recorded 3. Levothroid 25 MCG TABS; Therapy: (Recorded:[id number]) to Recorded 4. Pantoprazole Sodium 20 MG Oral Tablet Delayed Release; Therapy: (Recorded:[id number]) to Recorded Allergies 1. NSAIDs Signatures Electronically signed by : Rudy Fraser M.D.; Jul 26 2016 10:04AM BIN PACKER (Author) documented in this encounter Plan of Treatment Not on file documented as of this encounter Visit Diagnoses Not on filedocumented in this encounter Care Teams Mortgage Counselor Relationship Specialty Start Date End Date Lex [...] Grimm MD PCP - General 08/19/16 08/21/16 Lex Grimm MD PCP - General 08/15/16 08/18/16 Lex Grimm MD PCP - General 08/12/16 08/14/16 Lex Grimm MD PCP - General 08/09/16 08/11/16 Lex Grimm MD PCP - General 08/06/16 08/08/16 Lex Grimm MD PCP - General 07/30/16 08/05/16 Lex Grimm MD PCP - General 07/26/16 07/29/16 Lex Grimm MD PCP - General 07/23/16 07/25/16 Lex Grimm MD PCP - General 07/18/16 07/22/16 documented as of this encounter
--- OUTSIDE RECORDS SUMMARY | 2024-07-26 10:06 | XMS_ITS | Encounter Summary ---
Author Organization [facility] Address [facility] [place], [place] [address] [place] [address] Care Team Providers Care City Surveyor Name Role Phone Lex Grimm MD Primary [...] Department Care Team (Latest Contact Info) Description 08/06/2016 Abstract [facility] Social History Tobacco Use Types [...] on filedocumented in this encounter Care Teams City Surveyor Relationship Specialty Start Date End Date Lex [...] Grimm MD PCP - General 08/06/16 08/08/16 documented as of this encounter
--- OUTSIDE RECORDS SUMMARY | 2024-07-26 10:06 | XMS_ITS | Encounter Summary ---
Author Organization [facility] Address [facility]6 [facility]. [place], [place] [address] [place] [address] Care Team Providers Care Dry Press Operator Name Role Phone Lex Grimm MD Primary [...] + Lex Grimm MD Primary Care Provider Encounter Details Date Type Department Care Team (Latest Contact Info) Description 07/17/2016 Abstract [facility] Medical Group Social History Tobacco Use [...] on filedocumented in this encounter Care Teams Dry Press Operator Relationship Specialty Start Date End Date Lex [...] Grimm MD PCP - General 07/18/16 07/22/16 Lex Grimm MD PCP - General 07/15/16 07/17/16 documented as of this encounter
--- OUTSIDE RECORDS SUMMARY | 2024-07-26 10:06 | XMS_ITS | Encounter Summary ---
Author Organization [facility] Address [facility]6 [facility]. [place], [place] [address] [place] [address] Care Team Providers Care Image Archivist Name Role Phone Lex Grimm MD Primary [...] + Lex Grimm MD Primary Care Provider [phone] Lex Grimm MD Primary Care Provider [phone] Encounter Details Date Type Department Care Team (Latest Contact Info) Description 06/28/2016 Abstract [facility] Medical [facility] Social History Tobacco Use Types [...] on filedocumented in this encounter Care Teams Image Archivist Relationship Specialty Start Date End Date Lex [...] Grimm MD PCP - General 07/15/16 07/17/16 Lex Grimm MD PCP - General 07/10/16 07/14/16 documented as of this encounter
--- OUTSIDE RECORDS SUMMARY | 2024-07-26 10:06 | XMS_ITS | Encounter Summary ---
Author Organization [facility] Address [facility]. [place], [place] [address] [place] [address] Care Team Providers Care Rn Birthing Name Role Phone Lex Grimm MD Primary [...] + Lex Grimm MD Primary Care Provider [phone] Lex Grimm MD Primary Care Provider [phone] Encounter Details Date Type Department Care Team (Late st Contact Info) Description 07/05/2016 Abstract [facility] Medical Group Multispecialty Care - [facility] [address] [place] [id number] Rudy Fraser MD [address] [place] [address] Social History Tobacco Use Types Packs/Day Years Used Date Smoking Tobacco: Never Assessed Comments Unknown Sex and Gender Information Value Date Recorded Sex Assigned at Not on file Legal Sex Female 4:31 PM CDT Gender Identity Not on file Sexual Orientation Not on file documented as of this encounter Last Filed Vital Signs Vital Sign Reading Time Taken Comments Blood Pressure - - Pulse - - Temperature - - Respiratory Rate - - Oxygen Saturation - - Inhaled Oxygen Concentration - - Weight 52.6 kg (116 lb) 07/05/2016 8:46 AM CONSTRUCTION AREA MANAGER Height 163.8 cm (5' 4.5 ) 07/05/2016 8:46 AM CONSTRUCTION AREA MANAGER Body Mass Index 19.6 07/05/2016 8:46 AM CONSTRUCTION AREA MANAGER documented in this encounter Progress Notes * Rudy Fraser MD - 07/05/2016 8:00 AM CST Referred By / Reason Referred By Reason: Patient was referred by Primary Care Physician Name: Reason: History of Present Illness PRIMARY CARE PHYSICIAN: Dr. Sirisha Gerard [facility] CHIEF COMPLAINT: Ankle fracture. HISTORY OF PRESENT ILLNESS: Ms. Brody is a 65-year-old female who fell down some stairs about a week ago. She fell down about 3 stairs she thinks on 06/28/2016. She lives in an old home that has circular staircases. She turned her ankle. She describes an inversion injury. She was seen at the urgent care in [place] and told she had a fracture of her talus. She has been nonweightbearing in a splint since that time. Elevating and icing. 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 PHYSICAL EXAMINATION: She is 5 feet 4, 168 pounds. She is alert and oriented, communicating appropriately. She is in no distress. Exam of the right lower extremity reveals tenderness to palpation maximally over the ATFL extending over the talus. No tenderness at the fibula. No tenderness at the medial malleolus or deltoid ligament. She has flexion and extension of the ankle but it is very limited. No tenderness along the peroneals or posterior tib tendon. She is nontender to palpation through the midfoot or at the heel. IMAGING: Outside films show a dorsal talar neck avulsion fracture. No other fractures noted. ASSESSMENT: Right ankle inversion injury with avulsion of the dorsal aspect of the talus. PLAN: We are going to get her weightbearing as soon as we can here in the boot and allow her to be on this as much as she tolerates. She is using a walker right now and she should wean herself off ofthat if she can over the next few days to a week or so. I am going to get her back in a couple of weeks for repeat examination. We will also get her into physical therapy also to decrease her swelling, desensitize the ankle and get her moving. Repeat visit in 2 weeks, no x-rays needed. Review of Systems Complete-Female: Constitutional: negative. Head and Face: negative. Eyes: negative. ENT: nasal congestion and nasal discharge. Cardiovascular: negative. Respiratory: dry cough. Gastrointestinal: negative. Genitourinary: negative. Musculoskeletal: diffuse joint pain. Integumentary negative. Breasts Negative. Psychiatric: anxiety and depression. Hematologic and Lymphatic: negative. Neurological dizziness. Endocrine hot flashes. Active Problems 1. Ankle pain (719.47) (M25.579) Past Medical History 1. History of Anxiety [...] 1. ALPRAZolam 0.25 MG Oral Tablet; Therapy: (Recorded:[id number]) to Recorded 2. Citalopram Hydrobromide 10 MG Oral Tablet; Therapy: (Recorded:[id number]) to Recorded 3. Levothroid 25 MCG TABS; Therapy: (Recorded:[id number]) to Recorded 4. Pantoprazole Sodium 20 MG Oral Tablet Delayed Release; Therapy: (Recorded:[id number]) to Recorded Allergies 1. NSAIDs Vitals Recorded: [id number] 08:46AM Height 5 ft 4.5 in Weight 116 lb BMI Calculated 19.6 BSA Calculated 1.56 Plan Ankle sprain 1. Physical Therapy Referral Outpatient For: Ankle sprain Status: Need Information - Financial Authorization Requested for: [id number] Signatures Electronically signed by : Rudy Fraser M.D.; Jul 08 2016 8:42AM CONSTRUCTION AREA MANAGER (Author) documented in this encounter Plan of Treatment Not on file documented as of this encounter Visit Diagnoses Not on filedocumented in this encounter Care Teams Rn Birthing Relationship Specialty Start Date End Date Lex [...]
--- OUTSIDE RECORDS SUMMARY | 2024-07-26 10:07 | XMS_ITS | Encounter Summary ---
Author Organization [facility] [employer] [facility] Address [address] [place] [address] Care Team Providers Care Stogie Packer Name Role Phone Sunny Cortez MD Primary Care Provider [phone] Reason for Visit * Reason Comments Follow Up Encounter Details Date Type Department Care Team (Late st Contact Info) Description 07/20/2024 10:00 AM SUPERVISOR LATHING Office Visit [facility] Oncology and Hematology - [place] [address] [facility] [address] [place] [address] Mg Reynolds MD [address] [facility] [address] [place] [address] Essential thrombocytosis (Primary Dx) Social History Tobacco Use Types Packs/Day Years Used Date Smoking Tobacco: Former Cigarettes 0.5 2 Smokeless Tobacco: Never Tobacco Cessation:Counseling Given: Not Answered Alcohol Use Standard Drinks/Week Comments Yes 0 (1 standard drink = 0.6 oz pur e alcohol) socially Sex and Gender Information Value Date Recorded Sex Assigned at Not on file Gender Identity Not on file Sexual Orientation Not on file documented as of this encounter Last Filed Vital Signs Vital Sign Reading Time Taken Comments Blood Pressure 102/61 07/20/2024 10:00 AM SUPERVISOR LATHING Pulse 89 07/20/2024 10:00 AM SUPERVISOR LATHING Temperature 36.4 ??C (97.6 ??F) 07/20/2024 10:[address] Respiratory Rate 16 07/20/2024 10:00 AM SUPERVISOR LATHING Oxygen Saturation 97% 07/20/2024 10:00 AM SUPERVISOR LATHING Inhaled Oxygen Concentration - - Weight 59.9 kg (132 lb) 07/20/2024 10:00 AM SUPERVISOR LATHING Height - - Body Mass Index 22.66 07/16/2023 3:27 PM SUPERVISOR LATHING documented in this encounter Progress Notes * Mg Reynolds MD - 07/20/2024 10:49 AM CST HEMATOLOGY / ONCOLOGY PROGRESS NOTE Patient Identification: Name: Natasha Brody Age: 73 y.o. Sex: female : 1950 DIAGNOSIS Essential thrombocythemia with JAK2 mutation positive CURRENT TREATMENT Hydrea 500mg daily and allopurinol 300mg daily Aug 2023 TREATMENT HISTORY SUBJECTIVE Patient came to the office for follow-up visit. She denies any nausea vomiting. No diarrhea and constipation. Weight and appetite stable. No other new complaints. Review of system Constitutional: Patient did not mention fevers, sweats, weight and appetite stable, denies any tiredness and fatigue HEENT: Patient did not mention sinus congestion, hearing or vision problems Respiratory: Patient did not mention cough, dyspnea, wheeze Cardiovascular: Patient did not mention chest pain, exertional chest pressure/discomfort, nausea, syncope, shortness of breath GI: Patient did not mention constipation, diarrhea, dsyphagia, reflux symptoms, vomiting, melena, complain of nausea with aspirin intake : Patient did not mention dysuria, frequency, incontinence, urgency Integumentary system: no lymphadenopathy, sweats, flushing Musculoskeletal: Patient not mention: myalgia, arthralgia Neurological: Patient did not mention blurry or disturbed vision, numbness/weakness, dizziness Skin: No lumps, bumps or rashes. 12 point review of system was reviewed Objective: Vital signs in last 24 hours: As per nursing note Exam: General appearance: alert, cooperative, no distress, appears stated age Head: normocephalic, without obvious abnormality, atraumatic Eyes: conjunctivae/corneas clear, EOM's intact Ears: normal external ear canals AU Nose: Nares normal. Septum midline. Mucosa normal. No drainage or sinus tenderness Throat: Lips, mucosa, and tongue normal. Teeth and gums normal Neck: supple, symmetrical, trachea midline. Lungs: clear to auscultation bilaterally Heart: regular rate and rhythm, S1, S2 normal, no murmur, click, rub or gallop Abdomen: soft, non-tender. Bowel sounds normal. No masses, No organomegaly Extremities: extremities normal, atraumatic, no cyanosis or edema Skin: Skin color, texture, turgor normal. No rashes or lesions Lymph nodes: No lymphadenopathy Neuro: No obvious focal deficit Exam as above PATH LABS Labs from January 05 showed WBC 6.3 hemoglobin 14.2 platelet 378,000 creatinine 0.8 Labs from February 23 showed hemoglobin 14.9 platelet 509,000 WBC 7.5 creatinine 0.8 Labs from April 12 showed hemoglobin 14.8 platelet 542,000 WBC 6.1 creatinine 0.7 Labs from July 19 showed sodium 134 WBC 8.7 hemoglobin 15.5 platelet 590,000 Assessment: Plan: There are no problems to display for this patient. Essential thrombocythemia with JAK2 mutation positive. Labs reviewed. Platelet count has gone up further to 590,000. We will increase hydroxyurea to 6 days a week and skip on Friday. She is not able to take hydroxyurea on a daily basis due to poor tolerance. Patient will not take aspirin due to poor tolerance. Tumor lysis prevention. Continue with hydration. Allopurinol has been discontinued. GERD. Stable on Protonix. Osteopenia. Continue vitamin D. Follow-up in 3 months. 07/20/2024 Mg Reynolds MD RVISOR LATHING documented in this encounter Plan of Treatment Upcoming Encounters Date Type Department Care Team (Late st Contact Info) Description 10/22/2024 12:00 PM CDT Office Visit [facility] Oncology and Hematology - [place] [address] [facility] [address] [place] [address] Mg Reynolds MD [address] [facility] [address] [place] [address] Scheduled Orders Name Type Priority Associated Diagnoses Orde r Schedule CBC WITHOUT DIFFERENTIAL Lab Stat Essential thrombocytosis Expected: 10/12/2024, Expires: 07/20/2025 BASIC METABOLIC PANEL Lab Stat Essential thrombocytosis Expected: 10/12/2024, Expires: 07/20/2025 CBC WITHOUT DIFFERENTIAL Lab Stat Essential thrombocytosis Expected: 10/12/2024, Expires: 07/20/2025 BASIC METABOLIC PANEL Lab Stat Essential thrombocytosis Expected: 10/12/2024, Expires: 07/20/2025 documented as of this encounter Visit Diagnoses Diagnosis Essential thrombocytosis- Primary Essential thrombocythemia documented in this encounter Care Teams Stogie Packer Relationship Specialty Start Date End Date Sunny Cortez MD [address] [place] [address] PCP - General Family Practice 07/16/23 documented as of this encounter
--- OUTSIDE RECORDS SUMMARY | 2024-07-26 10:07 | XMS_ITS | Clinical Summary ---
Author Organization [facility] Sol chatman Lucio Address [address] [place] [address] Care Team Providers Care Changeover Operator Name Role Phone Sunny Cortez MD Primary Care Provider [phone] [phone] Allergies Active Allergy Reactions Criticality Noted Date Comments Famotidine Rash Low 07/16/2023 Medications Medication Sig Dispensed Refills Start Date End Date Status levothyroxine 50 mcg tablet Take 50 mcg by mouth daily. Active rosuvastatin (CRESTOR) 5 mg tablet Take 5 mg by mouth every other day. Active pantoprazole (PROTONIX) 20 mg Tablet, Delayed Release (E.C.) Take 20 mg by mouth Continuous as needed. Active hydroxyurea (HYDREA) 500 mg capsuleIndications:Es sential thrombocytosis Take 1 capsule by mouth once daily 90 Capsule 3 11/05/2023 Active MAGNESIUM CITRATE ORAL Take 200 mg by mouth. Active iron/folic ac/vit Bcomp,C/min (B [id number] ORAL) Take by mouth. Active OTHER Ashwaganda 600mg Premagen Active melatonin 1 mg Tablet Take 1 mg by mouth nightly as needed. Active allopurinoL (ZYLOPRIM) 300 mg tablet Take 1 Tablet (300 mg) by mouth daily. 90 Tablet 05/03/2024 Active Active Problems No known active problems Encounters Date Type Department Care Team Description 07/20/2024 10:00 AM TELEGRAPHIC TYPEWRITER INSTALLER Office Visit [facility] Oncology and Hematology - [place] [address] [place] [address] Mg Reynolds MD Essential thrombocytosis (Primary Dx) 07/20/2024 Orders Only [facility] Oncology and Hematology - [place] [address] [place] [address] Mg Reynolds MD 06/02/2024 External Device Data STL ABSTRACTION Provider, Abstract 05/25/2024 Telephone [facility] [address] [place] [id number] Mg Reynolds MD Bleeding/Bruising (Nose bleeds) 05/18/2024 External Device Data STL ABSTRACTION Provider, Abstract 05/04/2024 External Device Data STL ABSTRACTION Provider, Abstract 05/03/2024 Refill [facility] Oncology and Hematology [facility] [address] [place] [id number] Mg Reynolds MD from Last 3 Months Family History Medical History Relation Name Comments No Known Problems Father No Known Problems Mother Skin Cancer Sister 1 Skin Cancer Sister 2 Relation Name Status Comments Father Mother Sister 1 Alive Sister 2 Alive Social History Tobacco Use Types Packs/Day Years [...] Comments Blood Pressure 102/61 07/20/2024 10:00 AM TELEGRAPHIC TYPEWRITER INSTALLER Pulse 89 07/20/2024 10:00 AM TELEGRAPHIC TYPEWRITER INSTALLER Temperature 36.4 ??C (97.6 ??F) 07/20/2024 10:[address] Respiratory Rate 16 07/20/2024 10:00 AM TELEGRAPHIC TYPEWRITER INSTALLER Oxygen Saturation 97% 07/20/2024 10:00 AM TELEGRAPHIC TYPEWRITER INSTALLER Inhaled Oxygen Concentration - - Weight 59.9 kg (132 lb) 07/20/2024 10:00 AM TELEGRAPHIC TYPEWRITER INSTALLER Height 162.6 cm (5' 4 ) 07/16/2023 3:27 PM TELEGRAPHIC TYPEWRITER INSTALLER Body Mass Index 22.66 07/16/2023 3:27 PM TELEGRAPHIC TYPEWRITER INSTALLER Plan of Treatment Upcoming Encounters Date Type Department Care Team (Late st Contact Info) Description 10/22/2024 12:00 PM CDT Office Visit [facility] Oncology and [facility] [address] [place] [address] Mg Reynolds MD [address] [facility] [address] [place] [address] Health Maintenance Due Date Last Done Comments DTAP/TDAP/TD VACCINES (1 - Tdap) 1968 BREAST CANCER SCREENING 1989 COLORECTAL SCREENING 1994 FIT-DNA Q 3 years 1994 Flex Sig/CT Colonography Q 5 years 1994 ZOSTER VACCINE (1 of 2) 1999 OSTEOPOROSIS SCREENING 2014 PNEUMOCOCCAL VACCINE 65+ YEARS (1 of 1 - PCV) 08/20/19 15 INFLUENZA VACCINE (#1) 2024 RSV VACCINE (60+ or ) (1 - 1-dose 75+ series) 2024 Colorectal Cancer Screening 03/12/2025 FIT/FOBT Q 1 year 03/12/2025 03/12/2024 Procedures Procedure Name Priority Date/Time Associated Diagnosis Comments BASIC METABOLIC PANEL Routine 07/19/2024 11:55 AM TELEGRAPHIC TYPEWRITER INSTALLER CBC WITH DIFFERENTIAL Routine 07/19/2024 11:22 AM TELEGRAPHIC TYPEWRITER INSTALLER CHG BLOOD OCCULT FECAL HGB DETER IA QUAL FECES 1-3 Routine 03/12/2024 3:33 PM CDT from Last 3 Months or Most Recently Relevant to Health Maintenance Results * BASIC METABOLIC PANEL (07/19/2024 11:55 AM TELEGRAPHIC TYPEWRITER INSTALLER) Blood Mg Reynolds MD CHEMISTRY ORDERABLES * CBC WITH DIFFERENTIAL (07/19/2024 11:22 AM TELEGRAPHIC TYPEWRITER INSTALLER) Blood Mg Reynolds MD HEMATOLOGY ORDERABLE S * CHG BLOOD OCCULT FECAL HGB DETER IA QUAL FECES 1-3 (03/12/2024 3:33 PM CDT) Mg Reynolds MD CHG - LABORATORY from Last 3 Months or Most Recently Relevant to Health Maintenance Care Teams Changeover Operator Relationship Specialty Start Date End Date Sunny Cortez MD [address] [place] [id number] PCP - General Family Practice 07/16/23
--- OUTSIDE RECORDS SUMMARY | 2024-07-26 10:07 | XMS_ITS | Encounter Summary ---
Author Organization [facility] Address [address] [place] [address] Care Team Providers Care Barista Name Role Phone Sunny Cortez MD Primary Care Provider [phone] Encounter Details Date Type Department Care Team (Late st Contact Info) Description 05/04/2024 External Device Data STL ABSTRACTION Provider, Abstract NO ADDRESS ON FILE Social History Tobacco Use Types Packs/Day Years Used Date Smoking Tobacco: Former Cigarettes 0.5 2 Smokeless Tobacco: Never Alcohol Use Standard Drinks/Week Comments Yes 0 (1 standard drink = 0.6 oz pur e alcohol) socially Sex and Gender Information Value Date Recorded Sex Assigned at Not on file Gender Identity Not on file Sexual Orientation Not on file documented as of this encounter Plan of Treatment Upcoming Encounters Date Type Department Care Team (Late st Contact Info) Description 10/22/2024 12:00 PM CDT Office Visit [facility] Oncology and Hematology - [place] [address] [address] Mg Reynolds MD [address] [facility] [address] [place] [address] documented as of this encounter Visit Diagnoses Not on filedocumented in this encounter Care Teams Barista Relationship Specialty Start Date End Date Sunny Cortez MD [address] [address] PCP - General Family Practice 07/16/23 documented as of this encounter
--- OUTSIDE RECORDS SUMMARY | 2024-07-26 10:07 | XMS_ITS | Encounter Summary ---
Author Organization [facility] [employer] [facility] Address [address] [place] [address] Care Team Providers Care Paste Mixer Name Role Phone Sunny Cortez MD Primary Care Provider [phone] Encounter Details Date Type Department Care Team ([facility] Contact Info) Description 07/20/2024 Orders Only [facility] Oncology and Hematology [facility] [address] [place] [address] Mg Reynolds MD [address] [place] [address] [employer] [address] [address] Social History Tobacco Use Types Packs/Day Years [...] Encounters Date Type Department Care Team (Late Contact Info) Description 10/22/2024 12:00 PM CDT Office Visit [facility] Oncology and Hematology [place] [address] [place] [address] Mg Reynolds MD [address] [place] [address] documented as of this encounter Procedures Procedure Name Priority Date/Time Associated Diagnosis Comments BASIC METABOLIC PANEL Routine 07/19/2024 11:55 AM HOTEL AND DINING ROOM CASHIER CBC WITH DIFFERENTIAL Routine 07/19/2024 11:22 AM HOTEL AND DINING ROOM CASHIER documented in this encounter Results * BASIC METABOLIC PANEL (07/19/2024 11:55 AM HOTEL AND DINING ROOM CASHIER) Blood Mg Reynolds MD CHEMISTRY ORDERABLES * CBC WITH DIFFERENTIAL (07/19/2024 11:22 AM HOTEL AND DINING ROOM CASHIER) Blood Mg Reynolds MD HEMATOLOGY ORDERABLE S documented in this encounter Visit Diagnoses Not on filedocumented in this encounter Care Teams Paste Mixer Relationship Specialty Start Date End Date Sunny Cortez MD [address] [place] [address] PCP - General Family Practice 07/16/23 documented as of this encounter
--- OUTSIDE RECORDS SUMMARY | 2024-07-26 10:07 | XMS_ITS | Encounter Summary ---
Author Organization [facility] [employer] [facility] Address [address] [place] [address] Care Team Providers Care Service Crew Supervisor Name Role Phone Sunny Cortez MD Primary Care Provider [phone] Reason for Visit * Reason Onset Date Comments Medication Refill 05/03/2024 Encounter Details Date Type Department Care Team ([facility] Contact Info) Description 05/03/2024 Refill [facility] Oncology and Hematology - [place] [address] [place] [address] Mg Reynolds MD [facility] [address] [place] [address] Social History Tobacco Use Types Packs/Day [...] 10/22/2024 12:00 PM CDT Office Visit [facility] Oncology and Hematology - [place] [address] [place] [address] Mg Reynolds MD [facility] [address] [place] [address] documented as of this encounter Visit Diagnoses Not on filedocumented in this encounter Care Teams Service Crew Supervisor Relationship Specialty Start Date End Date Sunny Cortez MD [address] [place] [phone] PCP - General Family Practice 07/16/23 documented as of this encounter
--- OUTSIDE RECORDS SUMMARY | 2024-07-26 10:07 | XMS_ITS | Encounter Summary ---
Author Organization [facility] Address [address] [place] [address] Care Team Providers Care Classification Case Manager Name Role Phone Sunny Cortez MD Primary Care Provider [phone] Encounter Details Date Type Department Care Team (Late st Contact Info) Description 05/18/2024 External Device Data STL ABSTRACTION Provider, [...] Description 10/22/2024 12:00 PM CDT Office Visit [facility] Oncology and Hematology - [place]oust[place]ha [address] [address] Mg Reynolds MD [address] [facility] [address] [place] [address] documented as of this encounter Visit Diagnoses Not on filedocumented in this encounter Care Teams Classification Case Manager Relationship Specialty Start Date End Date Sunny Cortez MD [address] [place] [address] PCP - General Family Practice 07/16/23 documented as of this encounter
--- OUTSIDE RECORDS SUMMARY | 2024-07-26 10:07 | XMS_ITS | Referral Summary ---
Author Organization [facility] Address [address] [place] [address] Care Team Providers Care Product Manager Medical Device Name Role Phone No, Physician Primary Care Provider [phone] Allergies No known active allergies Medications ALPRAZolam (XANAX) 0.25 mg tablet 0 11/02/2018 Acti ve levothyroxine (SYNTHROID, LEVOTHROID) 50 mcg tablet 0 11/23/2018 Active Active Problems No known active problems Social History Tobacco Use Types Packs/Day Years Used Date Smoking Tobacco: Never Smokeless Tobacco: Never Alcohol Use Standard Drinks/Week Comments Yes 0 (1 standard drink = 0.6 oz pur e alcohol) Personal Safety Answer Date Recorded Getting School Help Needed Not on file 10/17 Comments Unknown Sex and Gender Information Value Date Recorded Sex Assigned at Not on file 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
--- OUTSIDE RECORDS SUMMARY | 2024-07-26 10:07 | XMS_ITS | Clinical Summary ---
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
--- OUTSIDE RECORDS SUMMARY | 2024-07-26 10:07 | XMS_ITS | Encounter Summary ---
Author Organization 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
--- OUTSIDE RECORDS SUMMARY | 2024-07-26 10:07 | XMS_ITS | Encounter Summary ---
Author Organization [facility] Address [address] [place] [address] Care Team Providers Care Facing Cutting Machine Operator Name Role Phone Sunny Cortez MD Primary Care Provider [phone] Encounter Details Date Type Department Care Team (Late st Contact Info) Description 06/02/2024 External Device Data STL ABSTRACTION Provider, [...] Description 10/22/2024 12:00 PM CDT Office Visit [facility] Oncology and Hematology - Moustapha [address] [address] Mg Reynolds MD [address] [facility] [address] [place] [address] documented as of this encounter Visit Diagnoses Not on filedocumented in this encounter Care Teams Facing Cutting Machine Operator Relationship Specialty Start Date End Date Sunny Cortez MD [address] [place] [address] PCP - General Family Practice 07/16/23 documented as of this encounter
--- OUTSIDE RECORDS SUMMARY | 2024-07-26 10:07 | XMS_ITS | Encounter Summary ---
Author Organization [facility] [employer] [facility] Address [address] [place] [address] Care Team Providers Care Oil Pipeline Dispatcher Name Role Phone Sunny Cortez MD Primary Care Provider [phone] Reason for Visit * Reason Onset Date Comments Bleeding/Bruising 05/25/2024 Nose bleeds Encounter Details Date Type Department Care Team (Late st Contact Info) Description 05/25/2024 Telephone [facility] Oncology and Hematology - [place] [address] [facility] [address] [place] [address] Mg Reynolds MD [address] [facility] [address] [place] [address] Bleeding/Bruising (Nose bleeds) Social History Tobacco Use Types Packs/Day Years Used Date Smoking Tobacco: Former Cigarettes 0.5 2 Smokeless Tobacco: Never Alcohol Use Standard Drinks/Week Comments Yes 0 (1 standard drink = 0.6 oz pur e alcohol) socially Sex and Gender Information Value Date Recorded Sex Assigned at Not on file Gender Identity Not on file Sexual Orientation Not on file documented as of this encounter Miscellaneous Notes * Telephone Encounter - Keira Bryant - 05/25/2024 8:24 AM CDT Spoke with patient about Dr. Almendarez recommendation. Patient stated she was worried about her kidney function being completely off the allpurional patient stated she wanted to take it every other day. I told patient this was Dr. Almendarez recommendations, but if she wants to try her way there is nothing we can do to stop her. I told her if she still has issues to give us a call. Patient stated understanding of Dr. Almendarez recommendations. * Telephone Encounter - Keira Bryant - 05/25/2024 8:22 AM CDT ----- Message from Dr. Mg Reynolds sent at 05/24/2024 4:23 PM CDT ----- Regarding: RE: nose bleeds She can discontinue aspirin due to nosebleed and I would recommend continuing hydroxyurea on every other day basis. She can also discontinue allopurinol. ----- Message ----- From: Keira Bryant Sent: 05/24/2024 12:12 PM CDT To: Mg Reynolds MD Subject: nose bleeds Patient called stating she got another nose bleed. At 3:00pm patient got up from her chairand started having a nose bleed, she stated it did not stop until Friday morning Patient then said she wants to stop taking her medication allopurinoL (ZYLOPRIM) 300 mg tablet and hydroxyurea (HYDREA) 500 mg capsule until her next appointment 07/20. Patient stated that she would be okay with every other day but that didn't help with her levels. 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 Patient also stated nose bleed was on and off - Friday. Patient then stated she will not take her medication until she hears from you. What would you like to do for next steps, please advise. documented in this encounter Plan of Treatment Upcoming Encounters Date Type Department Care Team (Late st Contact Info) Description 10/22/2024 12:00 PM CDT Office Visit [facility] Oncology and Hematology - [place] [address] [facility] [address] [place] [address] Mg Reynolds MD [address] [facility] [address] [place] [address] documented as of this encounter Visit Diagnoses Not on filedocumented in this encounter Care Teams Oil Pipeline Dispatcher Relationship Specialty Start Date End Date Sunny Cortez MD [address] [place] [phone] PCP - General Family Practice 07/16/23 documented as of this encounter
--- OUTSIDE RECORDS SUMMARY | 2024-07-26 10:07 | XMS_ITS | Encounter Summary ---
Author Organization [facility] Medical [facility] Address [address] [place] [address] Care Team Providers Care Certified Green Building Engineer Name Role Phone No, Physician Primary Care Provider [phone] Reason for Referral * Injectables (Routine) - Closed Specialty Diagnoses / Procedures Referred By Shekhar t Referred To Contact Diagnoses Trigger finger of right thumb Procedures Hand / Upper Extremity Arthrocentesis: R thumb A1 Bigg Gregg MD Phone: tel: fax: [facility] Referral ID Status Reason Start Date Expiration Date Visits Re quested Visits Authorized [id number] Closed 12/31/2018 07/11/2020 1 1 Reason for Visit * Reason Comments Pain Encounter Details Date Type Department Care Team (Late st Contact Info) Description 12/31/2018 10:30 AM CDT Office Visit [facility] Hand Surgery [facility] [facility] [address] [place] [address] Bigg Gregg MD [address] [place] [address] [address] [place] [address] Trigger finger of right thumb (Primary Dx) Social History Tobacco Use Types Packs/Day Years Used Date Smoking Tobacco: Never Smokeless Tobacco: Never Alcohol Use Standard Drinks/Week Comments Yes 0 (1 standard drink = 0.6 oz pur e alcohol) Comments Unknown Sex and Gender Information Value Date Recorded Sex Assigned at Not on file 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 female. Visit Date: 12/31/2018 Chief Complaint: Chief Complaint Patient presents with ??? Right Thumb - Pain HPI: The patient is a 68-year-old [id number] female seen for evaluation of pain in her right thumb. She is written that this affects her thumb joint and is been present since November. ROS: Constitutional: Negative for appetite change. HENT: Negative for drooling and facial swelling. Eyes: Negative for photophobia. Respiratory: Negative for choking and stridor. Gastrointestinal: Negative for abdominal distention. Endocrine: Negative for polydipsia. Genitourinary: Negative for dysuria and genital sores. Neurological: Negative for facial asymmetry and speech difficulty. Hematological: Negative for adenopathy. Review of Systems Physical Exam: On examination the patient is pleasant and alert. She is cooperative and well groomed. She walks with a normal gait. On examination of her upper extremities the skin is warm and dry. Good capillary refill. There is no complaints of any sensory disturbance. There is no enlargement of the epitrochlear lymph nodes. On examination of her right thumb she is tender to palpation at the metacarpophalangeal flexion crease and demonstrates triggering going from IP flexion into extension. There is no tenderness along the 1st extensor compartment or CMC joint. X-rays/Imaging: Assessment/Plan Diagnoses and all orders for this visit: Trigger finger of right thumb (Primary) Treatment / Plan: Pre discussed her symptoms and the pertinent anatomy. I advised her she is having a trigger thumb. I have demonstrated the normal anatomy using a plastic model. I have discussed options including splint wear to prevent flexion, intrathecal injection, and an operative release. After thorough discussion of the diagnosis and treatment options we have elected to try an injection today. Hand / Upper Extremity Arthrocentesis: R thumb A1 Date/Time: 12/31/2018 12:32 PM Performed by: Bigg Gregg MD Authorized by: Bigg Gregg MD Hand/Upper Extremity Injection: Consent Given by: Patient Site marked: the procedure site was marked Timeout: prior to procedure the correct patient, procedure, and site was verified Verbal consent obtained?: Yes Written consent obtained?: No Supporting Documentation: Indications: Pain Procedure Details: Condition: trigger finger Location: Thumb Site: R thumb A1 Prep: patient was prepped and draped in usual sterile fashion Prep: patient was prepped using a clean technique Medications: 40 mg triamcinolone 40 mg/mL; 1 mL lidocaine 10 mg/mL (1 %) Patient tolerance: Patient tolerated the procedure well with no immediate complications documented in this encounter Plan of Treatment Not on file documented as of this encounter Procedures Procedure Name Priority Date/Time Associated Diagnosis Comments VT INJECTION 1 TENDON SHEATH/LIGAMENT APONEUROSIS Routine 12/31/2018 10:30 AM CDT Trigger finger of right thumb documented in this encounter Results * VT INJECTION 1 TENDON SHEATH/LIGAMENT APONEUROSIS (12/31/2018 10:30 AM CDT) Narrative Bigg Gregg MD - 12/31/2018 10:30 AM CDT Bigg Gregg MD ? 12/31/2018 12:32 PM Hand / Upper Extremity Arthrocentesis: R thumb A1 Date/Time: 12/31/2018 12:32 PM Performed by: Bigg Gregg MD Authorized by: Bigg Gregg MD Hand/Upper Extremity Injection: ??Consent Given by: ??Patient ??Site marked: the procedure site was marked ?Timeout: prior to procedure the correct patient, procedure, and site was verified ?Verbal consent obtained?: Yes ?Written consent obtained?: No ?? Supporting Documentation: ??Indications: ??Pain Procedure Details: ??Condition: trigger finger ?Location: ??Thumb ??Site: ??R thumb A1 ??Prep: patient was prepped and draped in usual sterile fashion ?Prep: patient was prepped using a clean technique ?Medications: ??40 mg triamcinolone 40 mg/mL; 1 mL lidocaine 10 mg/mL (1 %) ??Patient tolerance: ??Patient tolerated the procedure well with no immediate complications us Bigg Gregg MD IN CLINIC/BEDSIDE ORDERABLES Final Result documented in this encounter Visit Diagnoses Diagnosis Trigger finger of right thumb- Primary documented in this encounter Administered Medications Inactive Administered Medications - up to 3 most recent administrations Medication Order MAR Action Action Date Dose Rate Site lidocaine (XYLOCAINE) 10 mg/mL (1 %) injection 1 mL 1 mL, One-Time Injection, Starting on Denise 12/31/18 at 1232, For 1 dose, Indications: Administration of Local AnesthesiaIndications:Administrati on of Local Anesthesia Given 12/31/2018 12:32 PM CDT 1 mL triamcinolone (KENALOG) 40 mg/mL injection 40 mg 40 mg, intra-articular, One-Time Injection, Starting on Denise 12/31/18 at 1232, For 1 doseIndications:Trigger finger of right thumb Given 12/31/2018 12:32 PM CDT 40 mg documented in this encounter Historical Medications * This list may reflect changes made after this encounter. Medication Sig Dispense Quantity Refills Last Filled Start D ate End Date levothyroxine (SYNTHROID, LEVOTHROID) 50 mcg tablet 0 11/23/2018 ALPRAZolam (XANAX) 0.25 mg tablet 0 11/02/2018 added in this encounter Care Teams Certified Green Building Engineer Relationship Specialty Start Date End Date No, Physician PCP - General 12/03/18 documented as of this encounter
--- OUTSIDE RECORDS SUMMARY | 2024-07-26 10:07 | XMS_ITS | Encounter Summary ---
Author Organization [facility] [employer] [facility] Address [address] [place] [address] Care Team Providers Care Plant Tech Name Role Phone Sunny Cortez MD Primary Care Provider [phone] Reason for Visit * Reason Comments Follow Up Encounter Details Date Type Department Care Team (Late st Contact Info) Description 04/15/2024 11:15 AM CDT Office Visit [facility] Oncology and Hematology - Moustapha [address] [facility] [address] [place] [address] Mg Reynolds MD [address] [place] [address] Chronic anemia (Primary Dx) Social History Tobacco Use Types [...] Sign Reading Time Taken Comments Blood Pressure 110/60 04/15/2024 11:22 AM CDT Pulse 96 04/15/2024 11:22 AM CDT Temperature 36.4 ??C (97.5 ??F) 04/15/2024 11:22 AM C DT Respiratory Rate 16 04/15/2024 11:22 AM CDT Oxygen Saturation 98% 04/15/2024 11:22 AM CDT Inhaled Oxygen Concentration - - Weight 59.9 kg (132 lb) 04/15/2024 11:22 AM CDT Height - - Body Mass Index 22.66 07/16/2023 3:27 PM SEE SUPERVISOR documented in this encounter Progress Notes * Mg Reynolds MD - 04/15/2024 12:15 PM CDT HEMATOLOGY / ONCOLOGY PROGRESS NOTE Patient Identification: Name: Natasha Brody Age: 73 y.o. Sex: female : 1950 DIAGNOSIS Essential thrombocythemia with JAK2 mutation positive CURRENT TREATMENT Hydrea 500mg daily and allopurinol 300mg daily Aug 2023 TREATMENT HISTORY SUBJECTIVE Patient came to the office for follow-up visit. She denies any nausea vomiting. Denies any chest pain and shortness of breath. Weight and appetite stable. No other new [...] 14.8 platelet 542,000 WBC 6.1 creatinine 0.7 Assessment: Plan: There are no problems to display for this patient. Essential thrombocythemia with JAK2 mutation positive. Labs noted. Platelet count has jumped to 5 42,000. We will increase hydroxyurea to 7 days a week from 5 days a week. Repeat labs in 3 months. Tumor lysis prevention. She is asymptomatic and will continue allopurinol along with adequate hydration. GERD. Stable on Protonix. Osteopenia. Continue vitamin D. Hypothyroidism. Stable on Synthyroid. Follow-up in 3 months. 04/15/2024 Mg Reynolds MD documented in this encounter Plan of Treatment Upcoming Encounters Date Type Department Care Team (Late st Contact Info) Description 10/22/2024 12:00 PM CDT Office Visit [facility] Oncology and Hematology - Moust[place]ha [address] [facility] [address] [place] [address] Mg Reynolds MD [address] [place] [address] Scheduled Orders Name Type Priority Associated Diagnoses Orde r Schedule CBC WITH DIFFERENTIAL Lab Stat Chronic anemia Expected: 07/08/2024, Expires: 04/15/2025 BASIC METABOLIC PANEL Lab Stat Chronic anemia Expected: 07/08/2024, Expires: 04/15/2025 documented as of this encounter Visit Diagnoses Diagnosis Chronic anemia- Primary Anemia, unspecified documented in this encounter Care Teams Plant Tech Relationship Specialty Start Date End Date Sunny Cortez MD [address] [place] [address] PCP - General Family Practice 07/16/23 documented as of this encounter
--- OUTSIDE RECORDS SUMMARY | 2024-07-26 10:08 | XMS_ITS | Encounter Summary ---
Author Organization [facility] [employer] [facility] [facility] Address [address] [place] [address] Care Team Providers Care Warehouse Guard Name Role Phone Sunny Cortez MD Primary Care Provider [phone] Reason for Referral * Radiology Services (Routine) - Closed Specialty Diagnoses / Procedures Referred By Shekhar mendez Referred To Contact Diagnoses Encounter for screening for malignant neoplasm of breast, unspecified screening modality Procedures MAMMO 3D AMIE SCREEN IMPL BILAT W OR WO CAD CHG SCREENING MAMMOGRAPHY BI 2-VIEW BREAST INC CAD CHG SCREENING DIGITAL BREAST TOMOSYNTHESIS BI Zarina Parnell FNP [address] [address] [facility] [address] [place] [address] Referral ID Status Reason Start Date Expiration Date V isits Requested Visits Authorized [id number] Closed STL CTS 10/09/2023 11/08/2024 1 1 MENTAL METAL WORKER HELPER Reason for Visit * Reason Comments Follow Up Encounter Details Date Type Department Care Team (Latest Contact Info) Description 10/09/2023 1:00 PM ORNAMENTAL METAL WORKER HELPER Office Visit [facility] Oncology and Hematology - [place] [place] [address] Zarina Parnell FNP [address] [address] Essential thrombocytosis (Primary Dx); Encounter for screening for malignant neoplasm of breast, unspecified screening modality Social History Tobacco Use Types Packs/Day Years [...] Sign Reading Time Taken Comments Blood Pressure 137/76 10/09/2023 1:02 PM ORNAMENTAL METAL WORKER HELPER Pulse 97 10/09/2023 1:02 PM ORNAMENTAL METAL WORKER HELPER Temperature 36.2 ??C (97.2 ??F) 10/09/2023 1:02 PM CS T Respiratory Rate 14 10/09/2023 1:02 PM ORNAMENTAL METAL WORKER HELPER Oxygen Saturation 96% 10/09/2023 1:02 PM ORNAMENTAL METAL WORKER HELPER Inhaled Oxygen Concentration - - Weight 59.7 kg (131 lb 9.6 oz) 10/09/2023 1:02 P M ORNAMENTAL METAL WORKER HELPER Height - - Body Mass Index 22.59 07/16/2023 3:27 PM ORNAMENTAL METAL WORKER HELPER documented in this encounter Progress Notes * Zarina Parnell FNP - 10/09/2023 2:45 PM CST Hematology / Oncology Progress Note Patient Identification: Name: Natasha Brody Age: 73 y.o. Sex: female : 1950 Diagnosis: Essential Thrombocytosis JAK2 positive Current Treatment: Hydrea 500mg daily and allopurinol 300mg daily Aug 2023 Treatment History: Subjective: Patient returns to the clinic for a follow up visit. She is reporting hot flashes and intermittent constipation. She denies any bleeding or bruising. She denies any chest pain, headaches, or rashes. She has unrelated concerns at this time. Tobacco Counseling: She is not a tobacco/nicotine user. Review of Systems All systems reviewed & are unremarkable except as noted in HPI and above Objective: Vital signs in last 24 hours: As per nursing note Physical Exam Vitals reviewed. Constitutional: General: She is awake. Appearance: Normal appearance. She is normal weight. HENT: Head: Normocephalic and atraumatic. Mouth/Throat: Mouth: Mucous membranes are moist. Pharynx: Oropharynx is clear. Eyes: Pupils: Pupils are equal, round, and reactive to light. Cardiovascular: Rate and Rhythm: Normal rate and regular rhythm. Pulses: Normal pulses. Heart sounds: Normal heart sounds. Pulmonary: Effort: Pulmonary effort is normal. Breath sounds: Normal breath sounds. Abdominal: General: Abdomen is flat. Bowel sounds are normal. Palpations: Abdomen is soft. There is no hepatomegaly or splenomegaly. Musculoskeletal: General: Normal range of motion. Cervical back: Normal range of motion. Skin: General: Skin is warm and dry. Neurological: General: No focal deficit present. Mental Status: She is alert and oriented to person, place, and time. Labs: 06/16/23: WBC 8.2, Hgb 14.4, Hct 44.2, Plt 537,000 07/19/23: WBC 9.8, Hgb 14.9, Hct 44.1, Plt 547,000, iron studies WNL, TRINA 2 +, Cr 0.80, AST 36, ALT22, 10/02/23: WBC 6.0, Hgb 14.1, Hct 41.5, Plt 416,000, Cr 0.80 Assessment: Plan: Essential Thrombocytosis with TRINA 2 positive I have reviewed labs with patient. Her platelet count has reduced from 547 to 416. She has responded well. Patient has a lot of questions and concerns and would like homeopathic therapies and discussed there is no homeopathic evidence to decrease her plt count with this mutation. She also has concerns about side effects like constipation. I have offered her another therapy, but she declines at this time. Continue daily baby aspirin 81mg enteric coated Continue hydrea 500mg daily and allopurinol 300mg daily Mammogram Screening I have ordered mammogram per patients request for screening for breast cancer GERD Patient is on Protonix Hypothyroidism Patient is on Synthroid Osteopenia Patient is on Vit D supplements, refuses calcium Follow up 3months RAMAKRISHNA Morales-C, 10/09/2023, 2:47 PM Hematology Oncology Nurse Practitioner [facility] Collaborating Physician: Dr. Vee Giron MENTAL METAL WORKER HELPER documented in this encounter Plan of Treatment Upcoming Encounters Date Type Department Care Team (Late st Contact Info) Description 10/22/2024 12:00 PM CDT Office Visit [facility] Oncology and Hematology [facility] [address] [place] [address] Mg Reynolds MD [address] [facility] [address] [place] [address] Scheduled Orders Name Type Priority Associated Diagnoses Orde r Schedule CBC WITHOUT DIFFERENTIAL Lab Routine Essential thrombocytosis Expected: 10/09/2023, Expires: 10/08/2024 MAMMO 3D AMIE SCREEN IMPL BILAT W OR WO CAD Imaging Routine Encounter for screening for malignant neoplasm of breast, unspecified screening modality Expected: 10/09/2023, Expires: 04/10/2025 documented as of this encounter Visit Diagnoses Diagnosis Essential thrombocytosis- Primary Essential thrombocythemia Encounter for screening for malignant neoplasm of breast, unspecified screening modality documented in this encounter Care Teams Warehouse Guard Relationship Specialty Start Date End Date Sunny Cortez MD [address] [place] [address] PCP - General Family Practice 07/16/23 documented as of this encounter
--- OUTSIDE RECORDS SUMMARY | 2024-07-26 10:08 | XMS_ITS | Encounter Summary ---
Author Organization [facility] [employer] [facility] Address [address] [place] [address] Care Team Providers Care Ends Breakage Clerk Name Role Phone Sunny Cortez MD Primary Care Provider [phone] Reason for Visit * Reason Onset Date Comments Bleeding/Bruising 12/01/2023 Encounter Details Date Type Department Care Team (Late st Contact Info) Description 12/01/2023 Telephone [facility] - [place] [address] [email or web address] [address] [place] [address] Mg Reynolds MD [address] [facility] [address] [place] [address] Bleeding/Bruising Social History Tobacco Use Types Packs/Day Years [...] * Telephone Encounter - Keira Bryant - 12/01/2023 10:42 AM CDT Called Patient to inform her of Dr. Reynolds's instructions. Patient wanted to take Asprin every other day instead of Dr. Reynolds's recommendation to stop asprin until reevaluated. Patient wanted to wait until her January appointment and I advised her that Dr. Reynolds would like for her to be seen sooner so her medications can be reevaluated and she can be reassessed. Patient finally agreed, She mentioned she is taking garlic 500mg because she prefers a holistic approach. Patient understood importanceof discussion with medical provider, and stated understanding. * Telephone Encounter - Keira Bryant - 12/01/2023 10:42 AM CDT ----- Message from Mg Reynolds MD sent at 11/28/2023 2:40 PM CDT ----- Regarding: RE: Nose blleds lasting longer than 15 mintutes Okay to stop aspirin until reevaluated and bleeding stopped. ----- Message ----- From: Keira Bryant Sent: 11/28/2023 10:53 AM CDT To: Mg Reynolds MD Subject: Nose blleds lasting longer than 15 mintutes Patient called stating that last night and this morning she has had several nose bleeds and they are lasting longer than 15 minutes. Patient believes its the Asprin she's taking and wants to stop taking it. Please advise. documented in this encounter Plan of Treatment Upcoming Encounters Date Type Department Care Team (Late st Contact Info) Description 10/22/2024 12:00 PM CDT Office Visit [facility] Oncology and Hematology - Moust[place] [address] Mg Reynolds MD [address] [facility] [address] [place] [address] documented as of this encounter Visit Diagnoses Not on filedocumented in this encounter Care Teams Ends Breakage Clerk Relationship Specialty Start Date End Date Sunny Cortez MD [address] [place] [address] PCP - General Family Practice 07/16/23 documented as of this encounter
--- OUTSIDE RECORDS SUMMARY | 2024-07-26 10:08 | XMS_ITS | Encounter Summary ---
Author Organization [facility] [employer] [facility] Address [address] [place] [address] Care Team Providers Care Medical Billing Coordinator Name Role Phone Sunny Cortez MD Primary Care Provider [phone] Reason for Visit * Reason Comments Follow Up Encounter Details Date Type Department Care Team (Late st Contact Info) Description 01/12/2024 1:00 PM CDT Office Visit [facility] Oncology and Hematology - Moustapha [address] [facility] [address] [place] [address] Mg Reynolds MD [address] [facility] [address] [place] [address] Essential thrombocytosis (Primary Dx) Social [...] Sign Reading Time Taken Comments Blood Pressure 139/85 01/12/2024 1:10 PM CDT Pulse 68 01/12/2024 1:10 PM CDT Temperature 36.3 ??C (97.4 ??F) 01/12/2024 1:10 PM CD T Respiratory Rate 14 01/12/2024 1:10 PM CDT Oxygen Saturation 96% 01/12/2024 1:10 PM CDT Inhaled Oxygen Concentration - - Weight 59.4 kg (131 lb) 01/12/2024 1:10 PM CDT Height - - Body Mass Index 22.49 07/16/2023 3:27 PM EDITOR BOOK documented in this encounter Progress Notes * Mg Reynolds MD - 01/12/2024 1:54 PM CDT HEMATOLOGY / ONCOLOGY PROGRESS NOTE Patient Identification: Name: Natasha Brody Age: 73 y.o. Sex: female : 1950 DIAGNOSIS Essential thrombocythemia with JAK2 mutation positive CURRENT TREATMENT Hydrea 500mg daily and allopurinol 300mg daily Aug 2023 TREATMENT HISTORY SUBJECTIVE Patient came into the office for follow-up visit. She has some constipation but under control with stool softener. Denies any bleeding. No chest pain or shortness of breath. No other new complaint. Review of system Constitutional: Patient did not mention fevers, sweats, fatigue, malaise, weight loss HEENT: Patient did not mention sinus congestion, hearing or vision problems Respiratory: Patient did not mention cough, dyspnea, wheeze Cardiovascular: Patient did not mention chest pain, exertional chest pressure/discomfort, nausea, syncope, shortness of breath GI: Patient did not mention constipation, diarrhea, dsyphagia, reflux symptoms, vomiting, melena : Patient did not mention dysuria, frequency, incontinence, urgency Integumentary system: no lymphadenopathy, sweats, flushing Musculoskeletal: Patient not mention: myalgia, arthralgia Neurological: Patient did not mention blurry or disturbed vision, numbness/weakness, dizziness Skin: No lumps, bumps or rashes. Objective: Vital signs in last 24 hours: [...] No lymphadenopathy Neuro: No obvious focal deficit PATH LABS Labs from January 05 showed WBC 6.3 hemoglobin 14.2 platelet 378,000 creatinine 0.8 @IMAGEIMP@ Assessment: Plan: There are no problems to display for this patient. Essential thrombocythemia with JAK2 mutation positive. Labs noted. Platelet has come down nicely. We will reduce hydroxyurea to 500 mg on every other day basis and will restart baby aspirin once platelet count is more than 450,000. Tumor lysis prevention. Will discontinue allopurinol and continue with adequate hydration. Osteopenia. She is on vitamin D. GERD. Continue Protonix. Hypothyroidism. She is on Synthroid. ? TOBACCO COUNSELING She is not a tobacco/nicotine user. 01/12/2024 Mg Reynolds MD documented in this encounter Plan of Treatment Upcoming Encounters Date Type Department Care Team (Late st Contact Info) Description 10/22/2024 12:00 PM CDT Office Visit [facility] Oncology and Hematology - Moustapha [address] [facility] [address] [place] [address] Mg Reynolds MD [address] [facility] [address] [place] [address] Scheduled Orders Name Type Priority Associated Diagnoses Orde r Schedule CBC WITH DIFFERENTIAL Lab Stat Essential thrombocytosis Expected: 02/19/2024, Expires: 01/11/2025 BASIC METABOLIC PANEL Lab Stat Essential thrombocytosis Expected: 02/19/2024, Expires: 01/11/2025 COMPREHENSIVE METABOLIC PANEL Lab Stat Essential thrombocytosis Expected: 02/19/2024, Expires: 01/11/2025 documented as of this encounter Visit Diagnoses Diagnosis Essential thrombocytosis- Primary Essential thrombocythemia documented in this encounter Care Teams Medical Billing Coordinator Relationship Specialty Start Date End Date Sunny Cortez MD [address] [place] [address] PCP - General Family Practice 07/16/23 documented as of this encounter
--- OUTSIDE RECORDS SUMMARY | 2024-07-26 10:08 | XMS_ITS | Encounter Summary ---
Author Organization [facility] Address [address] [place] [address] Care Team Providers Care Cyber Forensics Analyst Name Role Phone Sunny Cortez MD Primary Care Provider +1 -[phone] Encounter Details Date Type Department Care Team (Late st Contact Info) Description 07/22/2023 External Device Data STL ABSTRACTION Provider, Abstract [...] Description 10/22/2024 12:00 PM CDT Office Visit [facility] Oncology and Hematology - Moustapha [address] [address] Mg Reynolds MD [address] [facility] [address] [place] [address] documented as of this encounter Visit Diagnoses Not on filedocumented in this encounter Care Teams Cyber Forensics Analyst Relationship Specialty Start Date End Date Sunny Cortez MD [address] [place] [address] PCP - General Family Practice 07/16/23 documented as of this encounter
--- OUTSIDE RECORDS SUMMARY | 2024-07-26 10:08 | XMS_ITS | Encounter Summary ---
Author Organization [facility] [employer] [facility] Address [address] [place] [address] Care Team Providers Care Contract Administration Manager Name Role Phone Sunny Cortez MD Primary Care Provider +1 -[phone] Encounter Details Date Type Department Care Team (Late Contact Info) Description 10/02/2023 Orders Only [facility] Oncology and Hematology [facility] [address] [place] [address] Mg Reynolds MD [address] [place] [address] [employer] [address] [address] Social History Tobacco Use Types [...] Description 10/22/2024 12:00 PM CDT Office Visit [facility] Oncology and Hematology Moust[address] [place] [address] Mg Reynolds MD [facility] [employer] [address] [place] [address] documented as of this encounter Procedures Procedure Name Priority Date/Time Associated Diagnosis Comments CBC WITHOUT DIFFERENTIAL Routine 024 11:48 AM QUALITY CHECKER documented in this encounter Results * CBC WITHOUT DIFFERENTIAL (10/02/2023 11:48 AM QUALITY CHECKER) Blood Mg Reynolds MD HEMATOLOGY ORDERABLE S documented in this encounter Visit Diagnoses Not on filedocumented in this encounter Care Teams Contract Administration Manager Relationship Specialty Start Date End Date Sunny Cortez MD [address] [place] [address] PCP - General Family Practice 07/16/23 documented as of this encounter
--- OUTSIDE RECORDS SUMMARY | 2024-07-26 10:08 | XMS_ITS | Encounter Summary ---
Author Organization [facility] [employer] [facility] Address [address] [place] [address] Care Team Providers Care Postal Carrier Name Role Phone Sunny Cortez MD Primary Care Provider +1 -[phone] Reason for Visit * Reason Onset Date Comments stool 03/12/2024 Encounter Details Date Type Department Care Team ([facility] Contact Info) Description 03/12/[address] [facility] Oncology and Hematology [facility] [address] [place] [address] Mg Reynolds MD [facility] [employer] [address] [place] [address] stool Social History Tobacco Use Types Packs/Day Years [...] 10/22/2024 12:00 PM CDT Office Visit [facility] Oncology and Hematology Moust[place]ha [address] [place] [address] Mg Reynolds MD 647 [employer] [address] [place] [address] Scheduled Orders Name Type Priority Associated Diagnoses Orde r Schedule OCCULT BLOOD IMMUNOASSAY, COLORECTAL SCREEN Lab Routine Chronic anemia Gastrointestinal hemorrhage, unspecified gastrointestinal hemorrhage type Expected: 04/12/2024, Expires: 03/12/2025 documented as of this encounter Visit Diagnoses Diagnosis Chronic anemia- Primary Anemia, unspecified Gastrointestinal hemorrhage, unspecified gastrointestinal hemorrhage type documented in this encounter Care Teams Postal Carrier Relationship Specialty Start Date End Date Sunny Cortez MD [address] [place] [address] PCP - General Family Practice 07/16/23 documented as of this encounter
--- OUTSIDE RECORDS SUMMARY | 2024-07-26 10:08 | XMS_ITS | Encounter Summary ---
Author Organization [facility] Address [address] [place] [address] Care Team Providers Care Crust Sorter Name Role Phone Sunny Cortez MD Primary Care Provider +1 -[phone] Encounter Details Date Type Department Care Team (Late st Contact Info) Description 04/13/2024 External Device Data STL ABSTRACTION Provider, Abstract [...] and Hematology - Moustapha [address] [address] Mg Reynolds MD [address] [facility] [address] [place] [address] documented as of this encounter Visit Diagnoses Not on filedocumented in this encounter Care Teams Crust Sorter Relationship Specialty Start Date End Date Sunny Cortez MD [address] [place] [address] PCP - General Family Practice 07/16/23 documented as of this encounter
--- OUTSIDE RECORDS SUMMARY | 2024-07-26 10:08 | XMS_ITS | Encounter Summary ---
Author Organization [facility] [employer] [facility] Address [address] [place] [address] Care Team Providers Care Graphics Edit Technician Name Role Phone Sunny Cortez MD Primary Care Provider +1 -[phone] Encounter Details Date Type Department Care Team (Late Contact Info) Description 07/31/2023 Orders Only [facility] Oncology and Hematology [facility] [address] [place] [address] Mg Reynolds MD [facility] [employer] [address] [address] Social History Tobacco Use Types [...] PM CDT Office Visit [facility] Oncology and Hematology Moustapha [address] [place] [address] Mg Reynolds MD [address] [employer] [address] [place] [address] documented as of this encounter Procedures Procedure Name Priority Date/Time Associated Diagnosis Comments JAK2 MUTATION Routine 07/22/2023 9:33 AM EXOTIC DANCER documented in this encounter Results * JAK2 MUTATION (07/22/2023 9:33 AM EXOTIC DANCER) Blood BLOOD SPECIMEN / Unknown Mg Reynolds MD CHEMISTRY ORDERABLES documented in this encounter Visit Diagnoses Not on filedocumented in this encounter Care Teams Graphics Edit Technician Relationship Specialty Start Date End Date Sunny Cortez MD [address] [place] [address] PCP - General Family Practice 07/16/23 documented as of this encounter
--- OUTSIDE RECORDS SUMMARY | 2024-07-26 10:08 | XMS_ITS | Encounter Summary ---
Author Organization [facility] [employer] [facility] Address [address] [place] [address] Care Team Providers Care Senior Solutions Engineer Name Role Phone Sunny Cortez MD Primary Care Provider +1 -[phone] Encounter Details Date Type Department Care Team (Late Contact Info) Description 01/09/2024 Orders Only [facility] Oncology and Hematology [facility] [address] [place] [address] Mg Reynolds MD [address] [place] [address] [employer] [address] [place] [address] Essential thrombocytosis (Primary Dx) Social History [...] Description 10/22/2024 12:00 PM CDT Office Visit [facility] Oncology and Hematology [facility] [address] [place] [address] Mg Reynolds MD [address] [place] [address] [employer] [address] [place] [address] Scheduled Orders Name Type Priority Associated Diagnoses Orde r Schedule CBC WITH DIFFERENTIAL Lab Routine Essential thrombocytosis Expected: 01/09/2024, Expires: 01/08/2025 COMPREHENSIVE METABOLIC PANEL Lab Routine Essential thrombocytosis Expected: 01/09/2024, Expires: 01/08/2025 documented as of this encounter Visit Diagnoses Diagnosis Essential thrombocytosis- Primary Essential thrombocythemia documented in this encounter Care Teams Senior Solutions Engineer Relationship Specialty Start Date End Date Sunny Cortez MD [address] [place] [address] PCP - General Family Practice 07/16/23 documented as of this encounter
--- OUTSIDE RECORDS SUMMARY | 2024-07-26 10:08 | XMS_ITS | Encounter Summary ---
Author Organization [facility] [employer] [facility] Address [address] [place] [address] Care Team Providers Care Bottle House Quality Control Technician Name Role Phone Sunny Cortez MD Primary Care Provider +1 [phone] Encounter Details Date Type Department Care Team (Latest Contact Info) Description 12/09/2023 3:30 PM CDT Telephone Check Up [facility] Oncology and Hematology - Moustapha [address] [facility] [address] [place] [address] Zarina Parnell FNP [address] [facility] [address] [place] [phone] Essential thrombocytosis (Primary Dx) Social History Tobacco [...] as of this encounter Progress Notes * Zarina Parnell FNP - 12/09/2023 2:09 PM CDT Hematology / Oncology Progress Note Patient Identification: Name: Natasha Brody Age: 73 y.o. Sex: female : 1950 Diagnosis: Essential Thrombocytosis JAK2 positive Current Treatment: Hydrea 500mg daily and allopurinol 300mg daily Aug 2023 Treatment History: Subjective: This is a telephone visit. She was having recent nose bleeds so she stopped her aspirin. She is taking garlic, eulalio, and tumeric tea. She would like to continue on holistic care if possible. She is wondering about side effects on her current medications. She has many non related complaints. Tobacco Counseling: She is not a tobacco/nicotine user. Review of Systems All systems reviewed & are unremarkable except as noted in HPI and above Objective: Vital signs in last 24 hours: As per nursing note Physical Exam This is a telephone visit. Pathology: Imaging: Labs: 06/16/23: WBC 8.2, Hgb 14.4, Hct 44.2, Plt 537,000 07/19/23: WBC 9.8, Hgb 14.9, Hct 44.1, Plt 547,000, iron studies WNL, TRINA 2 +, Cr 0.80, AST 36, ALT22, 10/02/23: WBC 6.0, Hgb 14.1, Hct 41.5, Plt 416,000, Cr 0.80 Assessment: Plan: Essential Thrombocytosis with TRINA 2 positive Pt has been on Hydrea and allopurinol since August 2023. She has many concerns about taking these medications and retirement side effects. I have suggested switching therapies to Anagrelide 1mg instead of hydrea even though she has responded well to Hydrea. She would like to do homeopathic therapies and discussed there is no homeopathic evidence to decrease her plt count with this mutation. Continue hydrea 500mg daily and allopurinol 300mg daily at this time. Mammogram Screening I have ordered mammogram per patients request for screening for breast cancer GERD Patient is on Protonix Hypothyroidism Patient is on Synthroid Osteopenia Patient is on Vit D supplements, refuses calcium Follow up in 6 weeks MICKEY Morales, 12/09/2023, 2:12 PM Hematology Oncology Nurse Practitioner [facility] Collaborating Physician: Dr. Mg Reynolds This encounter was completed via audio-only two way synchronous communication. Patient's identity confirmed: Yes Patient gave verbal consent to have these services billed to their insurance and expressed understanding that co-insurance and deductible may apply: Yes Time spent by the provider delivering the care documented in this encounter 20 minutes. documented in this encounter Plan of Treatment Upcoming Encounters Date Type Department Care Team (Late st Contact Info) Description 10/22/2024 12:00 PM CDT Office Visit [facility] Oncology and Hematology - Moustapha [address] [place] [address] Mg Reynolds MD [address] [facility] [address] [place] [address] documented as of this encounter Visit Diagnoses Diagnosis Essential thrombocytosis- Primary Essential thrombocythemia documented in this encounter Care Teams Bottle House Quality Control Technician Relationship Specialty Start Date End Date Sunny Cortez MD [address] [place] [address] PCP - General Family Practice 07/16/23 documented as of this encounter
--- OUTSIDE RECORDS SUMMARY | 2024-07-26 10:08 | XMS_ITS | Encounter Summary ---
Author Organization [facility] Address [address] [place] [address] Care Team Providers Care Yarn Skeins Examiner Name Role Phone Sunny Cortez MD Primary Care Provider +1 -[phone] Encounter Details Date Type Department Care Team (Late st Contact Info) Description 09/22/2023 External Device Data STL ABSTRACTION Provider, Abstract [...] 10/22/2024 12:00 PM CDT Office Visit [facility] Oncology and Hematology - Moustapha [address] [address] Mg Reynolds MD [address] [facility] [address] [place] [address] documented as of this encounter Visit Diagnoses Not on filedocumented in this encounter Care Teams Yarn Skeins Examiner Relationship Specialty Start Date End Date Sunny Cortez MD [address] [place] [address] PCP - General Family Practice 07/16/23 documented as of this encounter
--- OUTSIDE RECORDS SUMMARY | 2024-07-26 10:08 | XMS_ITS | Encounter Summary ---
Author Organization [facility] Address [address] [place] [address] Care Team Providers Care Transit Police Officer Name Role Phone Sunny Cortez MD Primary Care Provider +1 -[phone] Encounter Details Date Type Department Care Team (Late st Contact Info) Description 03/25/2024 External Device Data STL ABSTRACTION Provider, Abstract [...] Description 10/22/2024 12:00 PM CDT Office Visit [facility] Oncology and Hematology - Moustapha [address] [address] Mg Reynolds MD [address] [facility] [address] [place] [address] documented as of this encounter Visit Diagnoses Not on filedocumented in this encounter Care Teams Transit Police Officer Relationship Specialty Start Date End Date Sunny Cortez MD [address] [place] [address] PCP - General Family Practice 07/16/23 documented as of this encounter
--- OUTSIDE RECORDS SUMMARY | 2024-07-26 10:08 | XMS_ITS | Encounter Summary ---
Author Organization [facility] Address [address] [place] [address] Care Team Providers Care Pantograph Machine Set Up Operator Name Role Phone Sunny Cortez MD Primary Care Provider +1 -[phone] Encounter Details Date Type Department Care Team (Late st Contact Info) Description 09/03/2023 External Device Data STL ABSTRACTION Provider, Abstract [...] Description 10/22/2024 12:00 PM CDT Office Visit [facility] Oncology and Hematology - Moustapha [address] [address] Mg Reynolds MD [address] [facility] [address] [place] [address] documented as of this encounter Visit Diagnoses Not on filedocumented in this encounter Care Teams Pantograph Machine Set Up Operator Relationship Specialty Start Date End Date Sunny Cortez MD [address] [place] [address] PCP - General Family Practice 07/16/23 documented as of this encounter
--- OUTSIDE RECORDS SUMMARY | 2024-07-26 10:08 | XMS_ITS | Encounter Summary ---
Author Organization [facility] [employer] [facility] Address [address] [place] [address] Care Team Providers Care Construction Tech Name Role Phone Sunny Cortez MD Primary Care Provider +1 -[phone] Reason for Visit * Reason Comments Follow Up Encounter Details Date Type Department Care Team (Late st Contact Info) Description 02/27/2024 12:00 PM CDT Office Visit [facility] Oncology and Hematology - Moustapha 2[address] [facility] [address] [place] [address] Mg Reynolds MD [address] [facility] [address] [place] [address] Essential thrombocytosis (Primary Dx) Social [...] Sign Reading Time Taken Comments Blood Pressure 126/64 02/27/2024 11:55 AM CDT Pulse 81 02/27/2024 11:55 AM CDT Temperature 36.7 ??C (98 ??F) 02/27/2024 11:55 AM CDT Respiratory Rate 18 02/27/2024 11:55 AM CDT Oxygen Saturation 98% 02/27/2024 11:55 AM CDT Inhaled Oxygen Concentration - - Weight 57.2 kg (126 lb) 02/27/2024 11:55 AM CDT Height - - Body Mass Index 21.63 07/16/2023 3:27 PM POWER TRANSMISSION ENGINEER documented in this encounter Progress Notes * Mg Reynolds MD - 02/27/2024 12:48 PM CDT HEMATOLOGY / ONCOLOGY PROGRESS NOTE Patient Identification: Name: Natasha Brody Age: 73 y.o. Sex: female : 1950 DIAGNOSIS Essential thrombocythemia with JAK2 mutation positive CURRENT TREATMENT Hydrea 500mg daily and allopurinol 300mg daily Aug 2023 TREATMENT HISTORY SUBJECTIVE Patient came to the office for follow-up visit. She denies any night sweats fevers and chills. Denies any bleeding or bruising. She had episode of nosebleed that has resolved. She denies any other new complaints. Review of system Constitutional: [...] 14.9 platelet 509,000 WBC 7.5 creatinine 0.8 Assessment: Plan: There are no problems to display for this patient. Essential thrombocythemia with JAK2 mutation positive. Labs noted. We will increase hydroxyurea to 5 days a week and skip on the weekends. She will continue aspirin 81 mg on every other day basis due to risk of nosebleed. Follow-up in 6 weeks. Tumor lysis prevention. We will restart allopurinol and continue adequate hydration. Osteopenia. Stable on vitamin D. GERD. She is on Protonix. Hypothyroidism. Patient is on Synthroid. TOBACCO COUNSELING Below-knee She is not a tobacco/nicotine user. 02/27/2024 Mg Reynolds MD documented in this encounter Plan of Treatment Upcoming Encounters Date Type Department Care Team (Late st Contact Info) Description 10/22/2024 12:00 PM CDT Office Visit [facility] Oncology and Hematology - Moustapha [address] [facility] [address] [place] [address] Mg Reynolds MD [address] [facility] [address] [place] [address] Scheduled Orders Name Type Priority Associated Diagnoses Orde r Schedule BASIC METABOLIC PANEL Lab Stat Essential thrombocytosis Expected: 04/05/2024, Expires: 02/26/2025 CBC WITHOUT DIFFERENTIAL Lab Stat Essential thrombocytosis Expected: 04/05/2024, Expires: 02/26/2025 documented as of this encounter Visit Diagnoses Diagnosis Essential thrombocytosis- Primary Essential thrombocythemia documented in this encounter Care Teams Construction Tech Relationship Specialty Start Date End Date Sunny Cortez MD [address] [address] PCP - General Family Practice 07/16/23 documented as of this encounter
--- OUTSIDE RECORDS SUMMARY | 2024-07-26 10:08 | XMS_ITS | Encounter Summary ---
Author Organization [facility] Address [address] [place] [address] Care Team Providers Care Forensic Science Technician Name Role Phone Sunny Cortez MD Primary Care Provider +1 -[phone] Encounter Details Date Type Department Care Team [...] Description 10/22/2024 12:00 PM CDT Office Visit [facility] Oncology and Hematology - Moustapha [address] [address] Mg Reynolds MD [address] [facility] [address] [place] [address] documented as of this encounter Visit Diagnoses Not on filedocumented in this encounter Care Teams Forensic Science Technician Relationship Specialty Start Date End Date Sunny Cortez MD [address] [place] [address] PCP - General Family Practice 07/16/23 documented as of this encounter
--- OUTSIDE RECORDS SUMMARY | 2024-07-26 10:08 | XMS_ITS | Encounter Summary ---
Author Organization [facility] [employer] [facility] Address [address] [place] [address] Care Team Providers Care Urban Planner Name Role Phone Sunny Cortez MD Primary Care Provider +1 -[phone] Encounter Details Date Type Department Care Team (Late Contact Info) Description 03/12/2024 Orders Only [facility] Oncology and Hematology [facility] [address] [place] [address] Mg Reynolds MD [address] [place] [address] [address] Social History Tobacco Use Types [...] Description 10/22/2024 12:00 PM CDT Office Visit [facility] Oncology and Hematology Moustapha [address] [place] [address] [place] [address] [place] [address] [address] [place] [address] documented as of this encounter Procedures Procedure Name Priority Date/Time Associated Diagnosis Comments CHG BLOOD OCCULT FECAL HGB DETER IA QUAL FECES 1-3 Routine 03/12/2024 3:33 PM CDT documented in this encounter Results * CHG BLOOD OCCULT FECAL HGB DETER IA QUAL FECES 1-3 (03/12/2024 3:33 PM CDT) Mg Reynolds MD [facility] - LABORATORY documented in this encounter Visit Diagnoses Not on filedocumented in this encounter Care Teams Urban Planner Relationship Specialty Start Date End Date Sunny Cortez MD [address] [place] [address] PCP - General Family Practice 07/16/23 documented as of this encounter
--- OUTSIDE RECORDS SUMMARY | 2024-07-26 10:08 | XMS_ITS | Encounter Summary ---
Author Organization [facility] [employer] [facility] Address [address] [place] [address] Care Team Providers Care Lead Auditor Name Role Phone Sunny Cortez MD Primary Care Provider +1 -[phone] Encounter Details Date Type Department Care Team (Late st Contact Info) Description 04/12/2024 Orders Only [facility] Oncology and Hematology [facility] [address] [place] [address] Scanning, Provider Social History Tobacco Use Types Packs/Day [...] Description 10/22/2024 12:00 PM CDT Office Visit [facility] Oncology [facility] [address] [place] [address] Mg Reynolds MD [address] [facility] [address] [place] [address] documented as of this encounter Procedures Procedure Name Priority Date/Time Associated Diagnosis Comments TRIGLYCERIDE Routine 04/12/2024 1:48 PM CDT documented in this encounter Results * TRIGLYCERIDE (04/12/2024 1:48 PM CDT) Blood Provider Scanning CHEMISTRY ORDERABLES documented in this encounter Visit Diagnoses Not on filedocumented in this encounter Care Teams Lead Auditor Relationship Specialty Start Date End Date Sunny Cortez MD [address] [place] [address] PCP - General Family Practice 07/16/23 documented as of this encounter
--- OUTSIDE RECORDS SUMMARY | 2024-07-26 10:08 | XMS_ITS | Encounter Summary ---
Author Organization [facility] Address [address] [place] [address] Care Team Providers Care Change Lead Name Role Phone Sunny Coretz MD Primary Care Provider +1 -[phone] Encounter Details Date Type Department Care Team (Late st Contact Info) Description 10/31/2023 External Device Data STL ABSTRACTION Provider, Abstract [...] 12:00 PM CDT Office Visit [facility] Oncology and Hematology - Moustapha [address] [address] Mg Reynolds MD 2[address] [facility] [address] [place] [address] documented as of this encounter Visit Diagnoses Not on filedocumented in this encounter Care Teams Change Lead Relationship Specialty Start Date End Date Sunny Cortez MD [address] [place] [address] PCP - General Family Practice 07/16/23 documented as of this encounter
--- OUTSIDE RECORDS SUMMARY | 2024-07-26 10:08 | XMS_ITS | Encounter Summary ---
Author Organization [facility] Address [address] [place] [address] Care Team Providers Care Meteorological Observer Name Role Phone Sunny Cortez MD Primary Care Provider +1 -[phone] Encounter Details Date Type Department Care Team (Late st Contact Info) Description 09/05/2023 External Device Data STL ABSTRACTION Provider, Abstract [...] Description 10/22/2024 12:00 PM CDT Office Visit [facility] Oncology and Hematology - M[place]ha [address] [address] Mg Reynolds MD 2227 [facility] [address] [place] [address] documented as of this encounter Visit Diagnoses Not on filedocumented in this encounter Care Teams Meteorological Observer Relationship Specialty Start Date End Date Sunny Cortez MD [address] [place] [address] PCP - General Family Practice 07/16/23 documented as of this encounter
--- OUTSIDE RECORDS SUMMARY | 2024-07-26 10:08 | XMS_ITS | Encounter Summary ---
Author Organization [facility] [employer] [facility] Address [address] [place] [address] Care Team Providers Care Char Dust Cleaner And Salvager Name Role Phone Sunny Cortez MD Primary Care Provider +1 -[phone] Encounter Details Date Type Department Care Team (Late Contact Info) Description 07/23/2023 Orders Only [facility] Oncology and Hematology [facility] [address] [place] [address] Mg Reynolds MD [address] [place] [address] [address] Social History Tobacco Use Types [...] 10/22/2024 12:00 PM CDT Office Visit [facility] Oncology and Hematology [place] [address] [place] [address] Mg Reynolds MD [facility] [employer] [address] [place] [address] documented as of this encounter Procedures Procedure Name Priority Date/Time Associated Diagnosis Comments CBC WITH DIFFERENTIAL Routine 07/22/2023 2:30 PM CHRONIC CARE NURSE documented in this encounter Results * CBC WITH DIFFERENTIAL (07/22/2023 2:30 PM CHRONIC CARE NURSE) Blood Mg Reynolds MD HEMATOLOGY ORDERABLE S documented in this encounter Visit Diagnoses Not on filedocumented in this encounter Care Teams Char Dust Cleaner And Salvager Relationship Specialty Start Date End Date Sunny Cortez MD [address] [place] [phone] PCP - General Family Practice 07/16/23 documented as of this encounter
--- OUTSIDE RECORDS SUMMARY | 2024-07-26 10:08 | XMS_ITS | Encounter Summary ---
Author Organization [facility] [employer] [facility] Address [address] [place] [address] Care Team Providers Care Mortician Helper Name Role Phone Sunny Cortez MD Primary Care Provider +1 -[phone] Encounter Details Date Type Department Care Team (Late Contact Info) Description 12/09/2023 Orders Only [facility] Oncology and Hematology - [place] [address] [place] [address] Zarina Parnell FNP [address] [address] Social History Tobacco Use Types Packs/Day Years [...] Description 10/22/2024 12:00 PM CDT Office Visit [facility] Oncology and Hematology - [place] [address] [place] [address] Mg Reynolds MD [address] [address] documented as of this encounter Visit Diagnoses Not on filedocumented in this encounter Care Teams Mortician Helper Relationship Specialty Start Date End Date Sunny Cortez MD [address] [place] [address] PCP - General Family Practice 07/16/23 documented as of this encounter
--- OUTSIDE RECORDS SUMMARY | 2024-07-26 10:08 | XMS_ITS | Encounter Summary ---
Author Organization [facility] Address [address] [place] [address] Care Team Providers Care End Worker Name Role Phone Sunny Cortez MD Primary Care Provider +1 [phone] Encounter Details Date Type Department Care Team (Late st Contact Info) Description 11/25/2023 External Device Data STL ABSTRACTION Provider, Abstract [...] Description 10/22/2024 12:00 PM CDT Office Visit [facility] Oncology and Hematology - Moustapha [address] [address] Mg Reynolds MD 2[address] [facility] [address] [place] [address] documented as of this encounter Visit Diagnoses Not on filedocumented in this encounter Care Teams End Worker Relationship Specialty Start Date End Date Sunny Cortez MD [address] [place] [address] PCP - General Family Practice 07/16/23 documented as of this encounter
--- OUTSIDE RECORDS SUMMARY | 2024-07-26 10:08 | XMS_ITS | Encounter Summary ---
Author Organization [facility] [employer] [facility] Address [address] [place] [address] Care Team Providers Care City Comptroller Name Role Phone Sunny Cortez MD Primary Care Provider +1 -[phone] Reason for Visit * Reason Comments Follow Up Encounter Details Date Type Department Care Team (Latest Contact Info) Description 08/07/2023 1:30 PM SHALE MINER Office Visit [facility] Oncology and Hematology - [place] [address] [facility] [address] [place] [address] Zarina Parnell FNP [address] [facility] [address] [place] [address] Essential thrombocytosis (Primary Dx); Health education Social History Tobacco Use Types Packs/Day Years [...] Sign Reading Time Taken Comments Blood Pressure 134/77 08/07/2023 1:38 PM SHALE MINER Pulse 88 08/07/2023 1:38 PM SHALE MINER Temperature 35.9 ??C (96.7 ??F) 08/07/2023 1:38 PM CS T Respiratory Rate 10 08/07/2023 1:38 PM SHALE MINER Oxygen Saturation 97% 08/07/2023 1:38 PM SHALE MINER Inhaled Oxygen Concentration - - Weight 59.9 kg (132 lb) 08/07/2023 1:38 PM SHALE MINER Height - - Body Mass Index 22.66 07/16/2023 3:27 PM SHALE MINER documented in this encounter Patient Instructions * Attachments The following attachments cannot be sent through Care Everywhere. * Iron-Rich Diet (French) * Hydroxyurea Oral Capsule (HYDROXYUREA - ORAL) (French) * Allopurinol Oral Tablet (ALLOPURINOL - ORAL) (French) documented in this encounter Progress Notes * Zarina Parnell, RAMAKRISHNA - 08/07/2023 3:13 PM CST Hematology / Oncology Progress Note Patient Identification: Name: Natasha Brody Age: 72 y.o. Sex: female : 1950 Diagnosis: Essential Thrombocytosis with JAK2 positive Current Treatment: Hydrea 500mg daily and allopurinol 300mg daily Aug 2023 Treatment History: Subjective: Patient returns to the clinic. She has been taking aspirin since our last visit without issue. She is concerned about getting ulcers. She is concerned about her blood results today. She denies any bleeding or bruising. Denies any thromboembolic events. She is anxious today. Tobacco Counseling: She is not a tobacco/nicotine user. Review of Systems Constitutional: Negative for chills, fatigue, fever and unexpected weight change. HENT: Negative for mouth sores. Respiratory: Negative for cough and shortness of breath. Cardiovascular: Negative for chest pain, palpitations and leg swelling. Gastrointestinal: Negative for abdominal pain, blood in stool, constipation, diarrhea, nausea and vomiting. Genitourinary: Negative for hematuria. Musculoskeletal: Negative for arthralgias. Skin: Negative for rash and wound. Neurological: Negative for dizziness, weakness, numbness and headaches. Hematological: Negative for adenopathy. Does not bruise/bleed easily. Objective: Vital signs in last 24 hours: [...] 2 +, Cr 0.80, AST 36, ALT22, Assessment: Plan: Essential Thrombocytosis with TRINA 2 positive I have reviewed labs with patient. I have discussed the meaning of JAK2 positive genetic mutation. I have discussed pharmacological management with patient. Patient has a lot of questions and concerns and would like homeopathic therapies. I have discussed the risk of blood clots due to increased platelet count without medication and I have discussed reasons that can cause blood clots. Continue daily baby aspirin 81mg enteric coated Start hydrea 500mg daily and allopurinol 300mg daily Pt has pricing concerns with pharmacy concerns, may call back to send to a different pharmacy GERD Patient is on Protonix Hypothyroidism Patient is on Synthroid Osteopenia Patient is on Vit D supplements, refuses calcium RAMAKRISHNA Morales-Taurus, 08/07/2023, 3:14 PM Hematology Oncology Nurse Practitioner [facility] This patient's plan of care has been reviewed and approved by Dr. Mg Reynolds. E MINER documented in this encounter Plan of Treatment Upcoming Encounters Date Type Department Care Team (Late st Contact Info) Description 10/22/2024 12:00 PM CDT Office Visit [facility] Oncology and Hematology - [place] [address] [facility] [address] [place] [address] Mg Reynolds MD [address] [facility] [address] [place] [address] Scheduled Orders Name Type Priority Associated Diagnoses Orde r Schedule CBC WITHOUT DIFFERENTIAL Lab Routine Essential thrombocytosis Expected: 10/02/2023, Expires: 08/07/2024 COMPREHENSIVE METABOLIC PANEL Lab Routine Essential thrombocytosis Expected: 10/02/2023, Expires: 08/07/2024 URIC ACID Lab Routine Essential thrombocytosis Expected: 10/02/2023, Expires: 08/07/2024 documented as of this encounter Visit Diagnoses Diagnosis Essential thrombocytosis- Primary Essential thrombocythemia Health education Counseling NOS documented in this encounter Care Teams City Comptroller Relationship Specialty Start Date End Date Sunny Cortez MD [address] [place] [address] PCP - General Family Practice 07/16/23 documented as of this encounter
--- OUTSIDE RECORDS SUMMARY | 2024-07-26 10:08 | XMS_ITS | Encounter Summary ---
Author Organization [facility] [employer] [facility] Address [address] [place] [address] Care Team Providers Care Dish Machine Operator Name Role Phone Sunny Cortez MD Primary Care Provider +1 [phone] Encounter Details Date Type Department Care Team ([facility] Contact Info) Description 07/22/[address] [facility] Oncology and Hematology [place] [address] [place] [address] Mg Reynolds MD [address] [place] [address] [employer] [address] [address] Social History Tobacco Use Types [...] [facility] Oncology and Hematology - [place]ha [address] [place] [address] Mg Reynolds MD [address] [place] [address] [employer] [address] [place] [address] documented as of this encounter Visit Diagnoses Not on filedocumented in this encounter Care Teams Dish Machine Operator Relationship Specialty Start Date End Date Sunny Cortez MD [address] [address] PCP - General Family Practice 07/16/23 documented as of this encounter
--- OUTSIDE RECORDS SUMMARY | 2024-07-26 10:08 | XMS_ITS | Encounter Summary ---
Author Organization [facility] [employer] [facility] Address [address] [place] [address] Care Team Providers Care Information Lead Name Role Phone Sunny Cortez MD Primary Care Provider +1 -[phone] Encounter Details Date Type Department Care Team (Late st Contact Info) Description 03/11/2024 4:00 PM CDT Telephone Check Up [facility] Oncology and Hematology - Moust[place]ha [address] [facility] [address] [place] [address] Mg Reynolds MD 2[address] [facility] [address] [place] [address] Social History Tobacco Use Types Packs/Day [...] as of this encounter Progress Notes * Mg Reynolds MD - 03/11/2024 5:46 PM CDT HEMATOLOGY / ONCOLOGY PROGRESS NOTE Patient Identification: Name: Natasha Brody Age: 73 y.o. Sex: female : 1950 DIAGNOSIS Essential thrombocythemia with JAK2 mutation positive CURRENT TREATMENT Hydrea 500mg daily and allopurinol 300mg daily Aug 2023 TREATMENT HISTORY SUBJECTIVE This is a phone visit with patient. She has been experiencing some nausea after taking the aspirin.Denies any bleeding including melena hematochezia. Denies any further nosebleeds. No other new complaints. Review of system [...] 24 hours: As per nursing note Exam: This is phone visit [facility] Labs from January 05 showed WBC 6.3 hemoglobin 14.2 platelet 378,000 creatinine 0.8 Labs from February 23 showed hemoglobin 14.9 platelet 509,000 WBC 7.5 creatinine 0.8 Assessment: Plan: There are no problems to display for this patient. Essential thrombocythemia with JAK2 mutation positive. Patient called as she was experiencing some nausea after taking aspirin. We will stop aspirin for now and continue hydroxyurea 5 days a week. Follow-up in April as previously scheduled. Tumor lysis prevention. She will continue allopurinol with adequate hydration. Osteopenia. Continue vitamin D. GERD. She is on Protonix. She is going to bring the stool sample for any GI bleed. Hypothyroidism. Stable on Synthroid. TOBACCO COUNSELING She is not a tobacco/nicotine user. 03/11/2024 Mg Reynolds MD This encounter was completed via audio-only two way synchronous communication. Patient's identity confirmed yes Patient gave verbal consent to have these services billed to their insurance and expressed understanding that co-insurance and deductible may apply: yes Time spent by the provider delivering the care documented in this encounter 20 minutes. documented in this encounter Plan of Treatment Upcoming Encounters Date Type Department Care Team (Late st Contact Info) Description 10/22/2024 12:00 PM CDT Office Visit [facility] Oncology and Hematology - [place]oust[place]ha [address] [facility] [address] [place] [address] Mg Reynolds MD [address] [facility] [address] [place] [address] documented as of this encounter Visit Diagnoses Not on filedocumented in this encounter Care Teams Information Lead Relationship Specialty Start Date End Date Sunny Cortez MD [address] [place] [address] PCP - General Family Practice 07/16/23 documented as of this encounter
--- OUTSIDE RECORDS SUMMARY | 2024-07-26 10:08 | XMS_ITS | Encounter Summary ---
Author Organization [facility] [facility] Address [address] [place] [address] Care Team Providers Care Senior Warehouse Clerk Name Role Phone Sunny Cortez MD Primary Care Provider +1 -[phone] Reason for Visit * Reason Comments Med Refill Encounter Details Date Type Department Care Team (Late st Contact Info) Description 12/08/2023 Refill [facility] Oncology and Hematology - Moust[place]ha [address] [place] [address] Mel Cheng FNP [address] [place] [phone] Essential thrombocytosis Social History Tobacco Use Types Packs/Day Years [...] as of this encounter Miscellaneous Notes * Addendum Note - Mel Cheng FNP - 12/09/2023 8:14 AM CDTAddended by: MEL CHENG on: 12/09/2023 08:14 AM Modules accepted: Orders documented in this encounter Plan of Treatment Upcoming Encounters Date Type Department Care Team (Late st Contact Info) Description 10/22/2024 12:00 PM CDT Office Visit [facility] Oncology and Hematology - Moust[place]ha [address] [place] [address] Mg Reynolds MD [address] [facility] [address] [place] [address] documented as of this encounter Visit Diagnoses Diagnosis Essential thrombocytosis Essential thrombocythemia documented in this encounter Care Teams Senior Warehouse Clerk Relationship Specialty Start Date End Date Sunny Cortez MD [address] [place] [address] PCP - General Family Practice 07/16/23 documented as of this encounter
--- OUTSIDE RECORDS SUMMARY | 2024-07-26 10:08 | XMS_ITS | Encounter Summary ---
Author Organization [facility] Address [address] [place] [address] Care Team Providers Care Clam Shucker Name Role Phone Sunny Cortez MD Primary Care Provider +1 -[phone] Encounter Details Date Type Department Care Team (Late st Contact Info) Description 01/06/2024 External Device Data STL ABSTRACTION Provider, Abstract [...] Description 10/22/2024 12:00 PM CDT Office Visit [facility] Oncology and Hematology - Moustapha [address] [address] Mg Reynolds MD 2227 [facility] [address] [place] [address] documented as of this encounter Visit Diagnoses Not on filedocumented in this encounter Care Teams Clam Shucker Relationship Specialty Start Date End Date Sunny Cortez MD [address] [place] [address] PCP - General Family Practice 07/16/23 documented as of this encounter
--- OUTSIDE RECORDS SUMMARY | 2024-07-26 10:08 | XMS_ITS | Encounter Summary ---
Author Organization [facility] Address [address] [place] [address] Care Team Providers Care Banking Services Advisor Name Role Phone Sunny Cortez MD Primary Care Provider +1 -[phone] Encounter Details Date Type Department Care Team [...] Description 10/22/2024 12:00 PM CDT Office Visit [facility] Oncology and Hematology - Moustapha [address] [address] Mg Reynolds MD 2227 [facility] [address] [place] [address] documented as of this encounter Visit Diagnoses Not on filedocumented in this encounter Care Teams Banking Services Advisor Relationship Specialty Start Date End Date Sunny Cortez MD [address] [place] [address] PCP - General Family Practice 07/16/23 documented as of this encounter
--- OUTSIDE RECORDS SUMMARY | 2024-07-26 10:08 | XMS_ITS | Encounter Summary ---
Author Organization [facility] [employer] [facility] Address [address] [place] [address] Care Team Providers Care Marketing Support Assistant Name Role Phone Sunny Cortez MD Primary Care Provider +1 -[phone] Reason for Visit * Reason Comments Med Refill Encounter Details Date Type Department Care Team (Late Contact Info) Description 11/05/2023 Refill [facility] Oncology and Hematology [facility] [address] [place] [address] Zarina Parnell FNP [address] [place] [phone] Essential thrombocytosis Social History Tobacco Use Types [...] Description 10/22/2024 12:00 PM CDT Office Visit [facility] Hematology Moustapha [address] [place] [address] Mg Reynolds MD [address] [facility] [address] [place] [address] documented as of this encounter Visit Diagnoses Diagnosis Essential thrombocytosis Essential thrombocythemia documented in this encounter Care Teams Marketing Support Assistant Relationship Specialty Start Date End Date Sunny Cortez MD [address] [place] [address] PCP - General Family Practice 07/16/23 documented as of this encounter
--- OUTSIDE RECORDS SUMMARY | 2024-07-26 10:08 | XMS_ITS | Encounter Summary ---
Author Organization [facility] Address [address] [place] [address] Care Team Providers Care Forwarder Operator Name Role Phone Sunny Cortez MD Primary Care Provider +1 -[phone] Encounter Details Date Type Department Care Team (Late st Contact Info) Description 10/09/2023 External Device Data STL ABSTRACTION Provider, Abstract [...] 10/22/2024 12:00 PM CDT Office Visit [facility] Oncology and Hematology - Moustapha [address] [address] Mg Reynolds MD 2[address] [facility] [address] [place] [address] documented as of this encounter Visit Diagnoses Not on filedocumented in this encounter Care Teams Forwarder Operator Relationship Specialty Start Date End Date Sunny Cortez MD [address] [place] [address] PCP - General Family Practice 07/16/23 documented as of this encounter
--- OUTSIDE RECORDS SUMMARY | 2024-07-26 10:08 | XMS_ITS | Encounter Summary ---
Author Organization [facility] [employer] [facility] Address [address] [place] [address] Care Team Providers Care Store Sales Leader Name Role Phone Sunny Cortez MD Primary Care Provider +1 -[phone] Encounter Details Date Type Department Care Team (Late Contact Info) Description 02/25/2024 Orders Only [facility] Oncology and Hematology [facility] [address] [place] [address] Mg Reynolds MD [address] [place] [address] [address] [address] Social History Tobacco Use Types [...] Description 10/22/2024 12:00 PM CDT Office Visit [facility] Oncology and Hematology - Moustapha [address] [place] [address] Mg Reynolds MD [address] [employer] [address] [place] [address] documented as of this encounter Procedures Procedure Name Priority Date/Time Associated Diagnosis Comments COMPREHENSIVE METABOLIC PANEL Routine 02/25/2024 8:23 AM CDT documented in this encounter Results * COMPREHENSIVE METABOLIC PANEL (02/25/2024 8:23 AM CDT) Blood Mg Reynolds MD CHEMISTRY ORDERABLES documented in this encounter Visit Diagnoses Not on filedocumented in this encounter Care Teams Store Sales Leader Relationship Specialty Start Date End Date Sunny Cortez MD [address] [place] [phone] PCP - General Family Practice 07/16/23 documented as of this encounter
--- OUTSIDE RECORDS SUMMARY | 2024-07-26 10:08 | XMS_ITS | Encounter Summary ---
Author Organization [facility] Address [address] [place] [address] Care Team Providers Care Aircraft Quality Control Inspector Name Role Phone Sunny Cortez MD Primary Care Provider +1 -[phone] Encounter Details Date Type Department Care Team (Late st Contact Info) Description 11/18/2023 External Device Data STL ABSTRACTION Provider, Abstract [...] and Hematology - Moustapha [address] [address] Mg Reynolds MD [address] [facility] [address] [place] [address] documented as of this encounter Visit Diagnoses Not on filedocumented in this encounter Care Teams Aircraft Quality Control Inspector Relationship Specialty Start Date End Date Sunny Cortez MD [address] [place] [address] PCP - General Family Practice 07/16/23 documented as of this encounter
--- OUTSIDE RECORDS SUMMARY | 2024-07-26 10:08 | XMS_ITS | Encounter Summary ---
Author Organization [facility] Address [address] [place] [address] Care Team Providers Care Steel Unloader Name Role Phone Sunny Cortez MD Primary Care Provider +1 -[phone] Encounter Details Date Type Department Care Team (Late st Contact Info) Description 03/24/2024 External Device Data STL ABSTRACTION Provider, Abstract [...] [facility] Oncology and Hematology - Moustapha [address] [address] Mg Reynolds MD 2227 [facility] [address] [place] [address] documented as of this encounter Visit Diagnoses Not on filedocumented in this encounter Care Teams Steel Unloader Relationship Specialty Start Date End Date Sunny Cortez MD [address] [place] [address] PCP - General Family Practice 07/16/23 documented as of this encounter
--- OUTSIDE RECORDS SUMMARY | 2024-07-26 10:08 | XMS_ITS | Encounter Summary ---
Author Organization [facility] [employer] [facility] Address [address] [place] [address] Care Team Providers Care Tight Cooper Name Role Phone Sunny Cortez MD Primary Care Provider [phone] Encounter Details Date Type Department Care Team (Late Contact Info) Description 01/06/[address] [facility] Oncology and Hematology [facility] [address] [facility] [address] [place] [address] Zarina Parnell FNP [address] [address] Essential thrombocytosis (Primary Dx) Social History Tobacco [...] Hematology - Moustapha [address] [place] [address] [place] [address] [place] [address] Scheduled Orders Name Type Priority Associated Diagnoses Orde r Schedule BASIC METABOLIC PANEL Lab Routine Essential thrombocytosis Expected: 01/06/2024, Expires: 01/05/2025 documented as of this encounter Visit Diagnoses Diagnosis Essential thrombocytosis- Primary Essential thrombocythemia documented in this encounter Care Teams Tight Cooper Relationship Specialty Start Date End Date Sunny Cortez MD [address] [place] [id number] PCP - General Family Practice 07/16/23 documented as of this encounter
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
--- OUTSIDE RECORDS SUMMARY | 2024-07-26 10:08 | XMS_ITS | Encounter Summary ---
Author Organization [facility] Address [address] [place] [address] Care Team Providers Care Rotary Swaging Machine Operator Name Role Phone Sunny Cortez MD Primary Care Provider [phone] Encounter Details Date Type Department Care Team (Late st Contact Info) Description 03/16/2024 External Device Data ST[facility] ABSTRACTION Provider, Abstract [...] and Hematology - Moustapha [address] [address] gM Reynolds MD [address] [facility] [address] [place] [address] documented as of this encounter Visit Diagnoses Not on filedocumented in this encounter Care Teams Rotary Swaging Machine Operator Relationship Specialty Start Date End Date Sunny Cortez MD [address] [place] [address] PCP - General Family Practice 07/16/23 documented as of this encounter
--- OUTSIDE RECORDS SUMMARY | 2024-07-26 10:08 | XMS_ITS | Encounter Summary ---
Author Organization [facility] [employer] [facility] Address [address] [place] [address] Care Team Providers Care Mounter Automatic Name Role Phone Sunny Cortez MD Primary Care Provider [phone] Reason for Visit * Reason Onset Date Comments Bleeding/Bruising 12/11/2023 Nose bleeding Encounter Details Date Type Department Care Team (Late st Contact Info) Description 12/11/2023 Telephone [facility] Oncology and Hematology - Moustapha [address] [facility] [address] [place] [address] Zarina Parnell FNP [address] [facility] [address] [place] [address] Bleeding/Bruising (Nose bleeding) Social History Tobacco Use Types Packs/Day Years [...] * Telephone Encounter - Keira Bryant - 12/11/2023 2:49 PM CDT Called patient back after she left a voicemail stating she had another nose bleed. Patient stated that it was her left nostril that bled for 5 minutes yesterday. Patient asked if she should start taking her hydroxyurea every other day. I discussed this with SUPERVISOR LOGGING Soheila her recommendation is that She continues the medication as prescribed and to try a moisturizing nasal spray. She also recommended her to see a Ears nose and throat specialist since she has continued to have nose bleeds. Called patient back, patient stated she has stopped all blood thinners since she was told. She takes jeff for allergies and has a dehumidifier in her home to prevent mold. I informed patient it could be dryness causing the nose bleeds. Patient says she knows it's a side effect of her medication and she is sensitive to different medications. When I informed her it is not a side effect according to MARYAM Parnell that it is most likely a different issue. We talked about the issue of allergies and she stated that her right nostril is cracked, I informed her that she should try a Mositurizing nasal spray. We talked about the possibility of her seeing a Ear Nose and Throat doctor. Patient stated understanding of keeping her medications the same and to see a specialist. documented in this encounter Plan of Treatment Upcoming Encounters Date Type Department Care Team (Late st Contact Info) Description 10/22/2024 12:00 PM CDT Office Visit [facility] Oncology and Hematology - Moustapha [address] [facility] [address] [place] [address] Mg Reynolds MD [address] [facility] [address] [place] [address] documented as of this encounter Visit Diagnoses Not on filedocumented in this encounter Care Teams Mounter Automatic Relationship Specialty Start Date End Date Sunny Cortez MD [address] [place] [address] PCP - General Family Practice 07/16/23 documented as of this encounter
--- OUTSIDE RECORDS SUMMARY | 2024-07-26 10:08 | XMS_ITS | Encounter Summary ---
Author Organization [facility] [employer] [facility] Address [address] [place] [address] Care Team Providers Care Organ Fixer Name Role Phone Sunny Cortez MD Primary Care Provider [phone] Reason for Visit * Reason Onset Date Comments Bleeding/Bruising 12/04/2023 Checking on Pa tients nose bleeding and how she is doing with medication changes Encounter Details Date Type Department Care Team (Late Contact Info) Description 12/04/2023 Telephone [facility] Oncology and Hematology - [address] [facility] [address] [place] [address] Zarina Parnell FNP [address] [facility] [address] [place] [address] Bleeding/Bruising (Checking on Patients nose bleeding and how she is doing with medication changes) Social History Tobacco Use Types Packs/Day Years [...] * Telephone Encounter - Keira Bryant - 12/04/2023 9:17 AM CDT Called Patient Left VM to see how she was doing with her nose bleeds and medication changes. documented in this encounter Plan of Treatment Upcoming Encounters Date Type Department Care Team (Late Contact Info) Description 10/22/2024 12:00 PM CDT Office Visit [facility] Oncology and Hematology - [place] [address] [facility] [address] [place] [address] gM Reynolds MD [address] [facility] [address] [place] [address] documented as of this encounter Visit Diagnoses Not on filedocumented in this encounter Care Teams Organ Fixer Relationship Specialty Start Date End Date Sunny Cortez MD [address] [place] [address] PCP - General Family Practice 07/16/23 documented as of this encounter
--- OUTSIDE RECORDS SUMMARY | 2024-07-26 10:08 | XMS_ITS | Encounter Summary ---
Author Organization [facility] [employer] [facility] Address [address] [place] [address] Care Team Providers Care Globe Cleaner Name Role Phone Sunny Cortez MD Primary Care Provider [phone] Reason for Visit * Reason Onset Date Comments Medication Review 01/19/2024 Encounter Details Date Type Department Care Team (Late st Contact Info) Description 01/19/2024 Telephone [facility] Oncology and Hematology - Moustapha [address] [facility] [address] [place] [address] Mg Reynolds MD [address] [facility] [address] [place] [address] Medication Review Social History Tobacco Use Types Packs/Day Years [...] encounter Miscellaneous Notes * Telephone Encounter - PatriciaVannessa velasquez Steven - 01/19/2024 9:14 AM CDT Patient called today and wanted to know why she was taken off the allopurinol if she was still taking the hydroxyurea? I tried to read doctors notes to her to let her know when why she was taken off of it. Before I got my first sentence out about taking the hydroxyurea every other day instead of every day she interrupted me and stated she already knew that. I asked patient if she could let me finish talking please before she interrupted me because I wanted to read everything to her so we were on the same page. I let her know that because he cut the hydroxyurea back to every other day he was comfortable with stopping the allopurinol as long as she continued with adequate hydration. She said that did not answer her question. Again I asked what her question was. She said she wanted to know why she was taking off the allopurinol. I again let her know it was because he dropped the dosage or her hydroxyurea and that he wanted her to drink plenty of water to flush her kidneys since she was not going to be taking the allopurinol. She said thanks and she would talk to doctor at the next visit. documented in this encounter Plan of Treatment Upcoming Encounters Date Type Department Care Team (Late st Contact Info) Description 10/22/2024 12:00 PM CDT Office Visit [facility] Oncology and Hematology [facility] [address] [facility] [address] [place] [address] Mg Reynolds MD [address] [facility] [address] [place] [address] documented as of this encounter Visit Diagnoses Not on filedocumented in this encounter Care Teams Globe Cleaner Relationship Specialty Start Date End Date Sunny Cortez MD [address] [place] [address] PCP - General Family Practice 07/16/23 documented as of this encounter
== END 2024-07-19 09:35 | disposition home or self-care (01) ==
LOC: ANHLAB 09:41
PROVIDERS: PCP Family Medicine; Visit Provider Internal Medicine Hematology & Oncology
DX: D64.9 Anemia, unspecified (principal)
CPT/HCPCS: 36415; 80048; 85025

== ENCOUNTER 2024-10-18 09:09 | Outpatient (CLI) | payer MEDICARE, SELFPAY ==
[2024-10-18 09:44] LABS: Mean Corpuscular HGB Conc 33.3 g/dl (32-36); Mean Corpuscular Hemoglobin 31.4 pg (26-34); Mean Corpuscular Volume 94.1 fl (80-100); Mean Platelet Volume 8.7 fl (7.4-10.4); Platelet Count Result 676 k/mm3 (150-375); Red Blood Count 4.78 M/mm3 (4.2-5.4); Red Cell Distribution Width 14.6 % (11.5-14.5); White Blood Count 7.4 K/mm3 (4.5-10.0)
--- OUTSIDE RECORDS SUMMARY | 2024-10-18 09:56 | XMS_ITS | Referral Summary ---
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
--- OUTSIDE RECORDS SUMMARY | 2024-10-18 09:56 | XMS_ITS | Clinical Summary ---
Author Organization [facility] Address [address] [place] [address] Care Team Providers Care Braille And Talking Books Clerk Name Role Phone Lex Grimm MD Primary Care Provider [phone] Social History Tobacco Use Types Packs/Day Years Used Date Smoking Tobacco: Never Assessed Comments Unknown Sex and Gender Information Value Date Recorded Sex Assigned at Not on file Legal Sex Female 4:31 PM CDT Gender Identity Not on file Sexual Orientation Not on file Last Filed Vital Signs Vital Sign Reading Time Taken Comments Blood Pressure 142/82 08/19/2016 10:29 AM MMI TEACHER Pulse - - Temperature - - Respiratory Rate - - Oxygen Saturation - - Inhaled Oxygen Concentration - - Weight 52.6 kg (116 lb) 07/05/2016 8:46 AM MMI TEACHER Height 163.8 cm (5' 4.5 ) 07/05/2016 8:46 AM MMI TEACHER Body Mass Index 19.6 07/05/2016 8:46 AM MMI TEACHER Plan of Treatment Health Maintenance Due Date [...] (1 - 1-dose 75+ series) 2024 Meningococcal B Vaccine Aged Out No l onger eligible based on patient's age to complete this topic Meningococcal Vaccine Aged Out No joseph gwyn eligible based on patient's age to complete this topic RSV Immunizations Under 20 Months Aged Out No longer eligible based on patient's age to complete this topic Care Teams Braille And Talking Books Clerk Relationship Specialty Start Date End Date Lex Grimm MD PCP - General 09/16/16
--- OUTSIDE RECORDS SUMMARY | 2024-10-18 09:56 | XMS_ITS | Clinical Summary ---
Author Organization [facility] Address [address] [place] [address] Care Team Providers Care Door Captain Name Role Phone Sunny Crotez MD Primary Care Provider [phone] Allergies Active Allergy Reactions Criticality Noted Date Comments Famotidine Rash Low 07/16/2023 Medications levothyroxine 50 mcg tablet Take 50 mcg by mouth daily. Active rosuvastatin (CRESTOR) 5 mg tablet Take 5 mg by mouth every other day. Active pantoprazole (PROTONIX) 20 mg Tablet, Delayed Release (E.C.) Take 20 mg by mouth Continuous as needed. Active hydroxyurea (HYDREA) 500 mg capsuleIndications :Essential thrombocytosis (CMS/HCC) Take 1 capsule by mouth once daily 90 Capsule 3 4 Active MAGNESIUM CITRATE ORAL Take 200 mg by mouth. Active iron/folic ac/vit Bcomp,C/min (B [id number] A ORAL) Take by mouth. Activ e OTHER Ashwaganda 600mg Premagen Active melatonin 1 mg Tablet Take 1 mg by mouth nightly as needed. Active allopurinoL (ZYLOPRIM) 300 mg tablet Take 1 Tablet (300 mg) by mouth daily. 90 Tablet 4 Active Active Problems No known active problems Encounters Date Type Department Care Team Description 10/09/2024 External Device Data STL ABSTRACTION Provider, Abstract 10/08/2024 External Device Data STL ABSTRACTION Provider, Abstract 10/06/2024 External Device Data STL ABSTRACTION Provider, Abstract 09/22/2024 External Device Data STL ABSTRACTION Provider, Abstract 08/31/2024 External Device Data STL ABSTRACTION Provider, Abstract 08/25/2024 External Device Data STL ABSTRACTION Provider, Abstract 08/25/2024 External Device Data STL ABSTRACTION Provider, Abstract 08/25/2024 Telephone [facility] Oncology and Hematology [facility] [address] [place] [address] Mg Reynolds MD Bleeding/Bruising (Nose bleeds) 08/17/2024 Telephone [facility] Oncology and Hematology [facility] [address] [place] [address] Mg Reynolds MD Bleeding/Bruising (Nose bleeding) 07/20/2024 10:00 AM RELOCATION COUNSELOR Office Visit [facility] Oncology and Hematology [facility] [address] [place] [address] Mg Reynolds MD Essential thrombocytosis (CMS/HCC) (Primary Dx) 07/20/2024 Orders Only [facility] Oncology and Hematology [facility] [address] [place] [address] Mg Reynolds MD from Last 3 Months [...] = 0.6 oz pur e alcohol) socially Comments Unknown Sex and Gender Information Value Date Recorded Sex Assigned at Not on file Legal Sex Female 8:57 AM RELOCATION COUNSELOR Gender Identity Not on file Sexual Orientation Not on file Last Filed Vital Signs Vital Sign Reading Time Taken Comments Blood Pressure 102/61 07/20/2024 10:00 AM RELOCATION COUNSELOR Pulse 89 07/20/2024 10:00 AM RELOCATION COUNSELOR Temperature 36.4 C (97.6 F) 07/20/2024 10:00 AM RELOCATION COUNSELOR Respiratory Rate 16 07/20/2024 10:00 AM RELOCATION COUNSELOR Oxygen Saturation 97% 07/20/2024 10:00 AM RELOCATION COUNSELOR Inhaled Oxygen Concentration - - Weight 59.9 kg (132 lb) 07/20/2024 10:00 AM RELOCATION COUNSELOR Height 162.6 cm (5' 4 ) 07/16/2023 3:27 PM RELOCATION COUNSELOR Body Mass Index 22.66 07/16/2023 3:27 PM RELOCATION COUNSELOR Plan of Treatment Upcoming Encounters Date Type Department Care Team (Late st Contact Info) Description 10/22/2024 12:00 PM CDT Office Visit [facility] Oncology and Hematology - Moustapha [address] [facility] [address] [place] [address] Mg Reynolds MD [address] [facility] [address] [place] [address] Health Maintenance Due Date Last Done Comments DTAP/TDAP/TD VACCINES (1 - Tdap) 1968 COLORECTAL SCREENING 1994 FIT-DNA Q 3 years 1994 Flex Sig/CT Colonography Q 5 years 1994 PNEUMOCOCCAL VACCINE 50+ YEARS (1 of 1 - PCV) 08/20/19 00 ZOSTER VACCINE (1 of 2) 1999 OSTEOPOROSIS SCREENING 2014 INFLUENZA VACCINE (#1) 2024 [place] ([place] Prev entative Visit/Annual Wellness Visit 08/04/2024 RSV VACCINE (60+ or ) (1 - 1-dose 75+ series) 2024 Colorectal Cancer Screening 03/12/2025 FIT/FOBT Q 1 year 03/12/2025 03/12/2024 Procedures Procedure Name Priority Date/Time Associated Diagnosis Comments CHG BLOOD OCCULT FECAL HGB DETER IA QUAL FECES 1-3 Routine 03/12/2024 3:33 PM CDT from Last 3 Months or Most Recently Relevant to Health Maintenance Results * CHG BLOOD OCCULT FECAL HGB DETER IA QUAL FECES 1-3 (03/12/2024 3:33 PM CDT) Mg Reynolds MD CHG - LABORATORY Final Result from Last 3 Months or Most Recently Relevant to Health Maintenance Insurance AETNA HMO MCR Care Teams Door Captain Relationship Specialty Start Date End Date Sunny Cortez MD [address] [place] [phone] PCP - General Family Practice 07/16/23
--- OUTSIDE RECORDS SUMMARY | 2024-10-18 09:56 | XMS_ITS | Clinical Summary ---
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
[2024-10-18 10:04] LABS: Alanine Aminotransferase 22 U/L (6-35); Albumin Level 4.6 g/dL (3.5-5.1); Alkaline Phosphatase 63 U/L (38-126); Anion Gap 10 mmol/L (4-12); Aspartate Amino Transferase 34 U/L (14-36); Bilirubin,Total 0.8 mg/dL (0.2-1.3); Blood Urea Nitrogen 16 mg/dL (7-17); Calcium 9.5 mg/dL (8.4-10.2); Carbon Dioxide 27 mmol/L (22-30); Chloride 102 mmol/L (98-107); Estimated Glomerular Filt Rate > 60; Glucose 95 mg/dL (65-110); Sodium 139 mmol/L (137-145)
[2024-10-18 11:03] LABS: Vitamin D 25 Hydroxy 53.6 ng/mL
== END 2024-10-18 09:10 | disposition home or self-care (01) ==
PROVIDERS: PCP Family Medicine; Referring Provider Internal Medicine Hematology & Oncology; Visit Provider Family Medicine
DX: R68.89 Other general symptoms and signs (principal); R79.89 Other specified abnormal findings of blood chemistry; D75.839 Thrombocytosis, unspecified; F41.9 Anxiety disorder, unspecified; E03.9 Hypothyroidism, unspecified; M85.80 Other specified disorders of bone density and structure, unspecified site; E78.5 Hyperlipidemia, unspecified; M47.812 Spondylosis without myelopathy or radiculopathy, cervical region; R42 Dizziness and giddiness
CPT/HCPCS: 36415; 80053; 82306; 84443; 85027

== ENCOUNTER 2024-11-08 09:41 | Outpatient (CLI) | payer MEDICARE, SELFPAY ==
[2024-11-08 09:59] LABS: Hematocrit 46.1 % (37.0-47.0); Hemoglobin 15.5 g/dL (12.0-15.0); Mean Corpuscular HGB Conc 33.6 g/dl (32-36); Mean Corpuscular Hemoglobin 31.4 pg (26-34); Mean Corpuscular Volume 93.5 fl (80-100); Mean Platelet Volume 8.7 fl (7.4-10.4); Platelet Count Result 703 k/mm3 (150-375); Red Blood Count 4.93 M/mm3 (4.2-5.4); Red Cell Distribution Width 14.9 % (11.5-14.5); White Blood Count 7.7 K/mm3 (4.5-10.0)
--- OUTSIDE RECORDS SUMMARY | 2024-11-08 10:40 | XMS_ITS | Referral Summary ---
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
--- OUTSIDE RECORDS SUMMARY | 2024-11-08 10:40 | XMS_ITS | Clinical Summary ---
Author Organization [facility] Address [facility] [place] [address] Care Team Providers Care Coiled Coil Inspector Name Role Phone Lex Grimm MD Primary [...] Comments Blood Pressure 142/82 08/19/2016 10:29 AM FREELANCE ART DIRECTOR Pulse - - Temperature - - Respiratory Rate - - Oxygen Saturation - - Inhaled Oxygen Concentration - - Weight 52.6 kg (116 lb) 07/05/2016 8:46 AM FREELANCE ART DIRECTOR Height 163.8 cm (5' 4.5 ) 07/05/2016 8:46 AM FREELANCE ART DIRECTOR Body Mass Index 19.6 07/05/2016 8:46 AM FREELANCE ART DIRECTOR Plan of Treatment Health Maintenance Due Date Last Done Comments Colorectal Cancer Screening Colonoscopy (10 Years) 1949 Hepatitis C 1967 DTaP, Tdap and Td Vaccines ( 1 - Tdap) 1968 Zoster Vaccines (1 of 2) 1999 Dexa Scan (General) 2014 Pneumococcal Vaccine: 65+ Ye ars (1 of 1 - PCV) 2014 COVID-19 Vaccine ( - 2023-2 5 season) 2024 RSV Immunization or 60+ Years (1 [...] age to complete this topic Care Teams Coiled Coil Inspector Relationship Specialty Start Date End Date Lex Grimm MD PCP - General 09/16/16
--- OUTSIDE RECORDS SUMMARY | 2024-11-08 10:40 | XMS_ITS | Clinical Summary ---
Author Organization [facility] Address [address] [place] [address] Care Team Providers Care Company Controller Name Role Phone Sunny Cortez MD Primary Care Provider [phone] Allergies Active Allergy Reactions Criticality Noted Date [...] by mouth. Active iron/folic ac/vit Bcomp,C/min (B [id number] A ORAL) Take by mouth. Activ e OTHER Ashwaganda 600mg Premagen Active melatonin 1 mg Tablet Take 1 mg by mouth nightly as needed. Active allopurinoL (ZYLOPRIM) 300 mg tablet Take 1 Tablet (300 mg) by mouth daily. 90 Tablet 4 Active Active Problems No known active problems Encounters Date Type Department Care Team Description 10/20/2024 External Device Data STL ABSTRACTION Provider, Abstract 10/09/2024 External Device Data STL ABSTRACTION Provider, Abstract 10/08/2024 External Device Data STL ABSTRACTION Provider, Abstract 10/06/2024 External Device Data STL ABSTRACTION Provider, Abstract 09/22/2024 External Device Data STL ABSTRACTION Provider, Abstract 08/31/2024 External Device Data STL ABSTRACTION Provider, Abstract 08/25/2024 External Device Data STL ABSTRACTION Provider, Abstract 08/25/2024 External Device Data STL ABSTRACTION Provider, Abstract 08/25/2024 Telephone [facility] Oncology [facility] Hematology [facility] [address] [place] [address] Mg Reynolds MD Bleeding/Bruising (Nose bleeds) 08/17/2024 Telephone [facility] Oncology [facility] Hematology [facility] [address] [place] [address] Mg Reynolds MD Bleeding/Bruising (Nose bleeding) from Last 3 Months Family History Medical [...] on file Legal Sex Female 8:57 AM EMBROIDERER HAND Gender Identity Not on file Sexual Orientation Not on file Last Filed Vital Signs Vital Sign Reading Time Taken Comments Blood Pressure 102/61 07/20/2024 10:00 AM EMBROIDERER HAND Pulse 89 07/20/2024 10:00 AM EMBROIDERER HAND Temperature 36.4 C (97.6 F) 07/20/2024 10:00 AM EMBROIDERER HAND Respiratory Rate 16 07/20/2024 10:00 AM EMBROIDERER HAND Oxygen Saturation 97% 07/20/2024 10:00 AM EMBROIDERER HAND Inhaled Oxygen Concentration - - Weight 59.9 kg (132 lb) 07/20/2024 10:00 AM EMBROIDERER HAND Height 162.6 cm (5' 4 ) 07/16/2023 3:27 PM EMBROIDERER HAND Body Mass Index 22.66 07/16/2023 3:27 PM EMBROIDERER HAND Plan of Treatment Upcoming Encounters Date Type Department Care Team (Late st Contact Info) Description 11/10/2024 1:00 PM CDT Office Visit [facility] Oncology and Hematology [facility] [address] [place] [address] Mg Reynolds MD [address] [facility] [address] [place] [address] Health Maintenance Due Date Last Done Comments DTAP/TDAP/TD VACCINES (1 - Tdap) 1968 COLORECTAL SCREENING 1994 FIT-DNA Q 3 years 1994 Flex Sig/CT Colonography Q 5 years 1994 PNEUMOCOCCAL VACCINE 50+ YEARS (1 of 1 - PCV) 08/20/19 00 ZOSTER VACCINE (1 of 2) 1999 OSTEOPOROSIS SCREENING 2014 INFLUENZA VACCINE (#1) 2024 [place] ([place] Prev entative Visit/Annual Wellness Visit 08/04/2024 RSV [...] Recently Relevant to Health Maintenance Insurance AETNA O MCR Care Teams Company Controller Relationship Specialty Start Date End Date Sunny Cortez MD [address] [place] [phone] PCP - General Family Practice 07/16/23
--- OUTSIDE RECORDS SUMMARY | 2024-11-08 10:40 | XMS_ITS | Clinical Summary ---
Author Organization [facility] Address [address] [place] [phone] Care Team Providers Care Cash Specialist Name Role Phone No, Physician Primary Care Provider [phone] Allergies No known active allergies Medications ALPRAZolam [...] on file Legal Sex Female 12:38 PM SURGERY SPECIALIST Gender Identity Not on file Sexual Orientation Not on file Obstetrics History Plan of Treatment Not on file Insurance COMMERCIAL GENERIC Care Teams Cash Specialist Relationship Specialty Start Date End Date No, Physician PCP - General 12/03/18
[2024-11-08 12:16] LABS: Anion Gap 10 mmol/L (4-12); Blood Urea Nitrogen 14 mg/dL (7-17); Calcium 9.8 mg/dL (8.4-10.2); Carbon Dioxide 29 mmol/L (22-30); Chloride 102 mmol/L (98-107); Estimated Glomerular Filt Rate > 60; Glucose 96 mg/dL (65-110); Potassium 4.4 mmol/L (3.4-5.0); Sodium 141 mmol/L (137-145)
== END 2024-11-08 09:42 | disposition home or self-care (01) ==
LOC: ANHLAB 09:42
PROVIDERS: Visit Provider Internal Medicine Hematology & Oncology
DX: D47.3 Essential (hemorrhagic) thrombocythemia (principal)
CPT/HCPCS: 36415; 80048; 85027

== ENCOUNTER 2025-01-06 13:46 | Outpatient (CLI) | payer MEDICARE, SELFPAY ==
--- NOTE | ~2025-01-06 | DEXA_ITS ---
Bone Density Report Name: KRISTOPHER CARTER Age: 74 Sex: Female Ethnicity: White Date of : 1950 Indication: postmenopausal; screening for osteoporosis; height loss; Referring Provider: SKYLAR SÁNCHEZ Study: Bone densitometry was performed. Exam Date: January 06, 2025 Accession number: [id number] Bone Density: Region BMD T-score Z-score Classification AP Spine(L1-L4) 1.005 -0.4 2.0 Normal World Health Organization criteria for BMD impression classify patients as: Normal (T-score at or above -1.0), Osteopenia (T-score between -1.0 and -2.5), or Osteoporosis (T-score at or below -2.5). Previous Exams: Region Exam Age BMD T-score BMD Change BMD Change Date g/cm2 vs Baseline vs Previous AP Spine (L1-L4) 01/06/2025 74 1.005 -0.4 -0.034 (-3.3%) -0.034 (-3.3%) 05/29/2022 71 1.039 -0.1 *Denotes significance at 95% confidence level, LSC for AP Spine = 0.022 g/cm2 Clinical Information Provided by Patient: Has used the following medications: Vitamin D, Calcium Patient maximum height was 64.25 Menopause Age: 41 Onset of menses at age 11 Number of children 0 Impression: The patient has normal bone mass. The BMD for the AP Spine (L1-L4) decreased, changing by -3.3% since the last DXA exam. Discussion: BONE DENSITY IS ABOVE THE MINIMUM DESIRABLE LEVEL AT ALL SKELETAL SITES TESTED. This patient?s bone mineral density is above the minimum desirable level (T-score -1.0 or better) at all sites measured. The patient should follow a healthful lifestyle (good nutrition with adequate calcium and vitamin D, and appropriate weight-bearing exercise). Follow-Up: Consider repeating this study in 3 to 4 years to reassess this patient's status, or sooner if there is some new clinical indication. Reported by: CLEMENTINA on 01/06/2025 2:42:00 PM. Reviewed, dictated and finalized at location A.
--- OUTSIDE RECORDS SUMMARY | 2025-01-06 14:25 | XMS_ITS | Referral Summary ---
Author Organization [facility] Address [address] [place] [address] Care Team Providers Care Medical Research Associate Name Role Phone No, Physician Primary Care Provider [phone] Allergies No known active allergies Medications ALPRAZolam [...] on file Legal Sex Female 12:38 PM DICTATING MACHINE TYPIST Gender Identity Not on file Sexual Orientation Not on file Plan of Treatment Not on file Insurance MEDICARE COMMERCIAL GENERIC Care Teams Medical Research Associate Relationship Specialty Start Date End Date No, Physician PCP - General 12/03/18
--- OUTSIDE RECORDS SUMMARY | 2025-01-06 14:25 | XMS_ITS | Clinical Summary ---
Author Organization [facility] Address [address] [place] [phone] Care Team Providers Care Nuclear Technician Name Role Phone No, Physician Primary Care Provider [phone] Allergies No known active allergies Medications ALPRAZolam [...] on file Legal Sex Female 12:38 PM TELECOMMUNICATIONS MANAGER Gender Identity Not on file Sexual Orientation Not on file Obstetrics History Plan of Treatment Not on file Insurance COMMERCIAL GENERIC Care Teams Nuclear Technician Relationship Specialty Start Date End Date No, Physician PCP - General 12/03/18
--- OUTSIDE RECORDS SUMMARY | 2025-01-06 14:25 | XMS_ITS | Clinical Summary ---
Author Organization [facility] Sol lurdes Reynoso Address [address] [place] [address] Care Team Providers Care Maintenance Journeyman Name Role Phone Sunny Cortez MD Primary Care Provider [phone] Allergies Active Allergy Reactions Criticality Noted Date Comments Famotidine Rash Low 07/16/2023 Medications levothyroxine 50 mcg tablet Take 50 mcg by mouth daily. Active rosuvastatin (CRESTOR) 5 mg tablet Take 5 mg by mouth every other day. Active pantoprazole (PROTONIX) 20 mg Tablet, Delayed Release (E.C.) Take 20 mg by mouth Continuous as needed. Active MAGNESIUM CITRATE ORAL Take 200 mg by mouth. Active iron/folic ac/vit Bcomp,C/min (B [id number]-F E-FA ORAL) Take by mouth. Acti ve OTHER Ashwaganda 600mg Premagen Active melatonin 1 mg Tablet Take 1 mg by mouth nightly as needed. Active allopurinoL (ZYLOPRIM) 300 mg tablet Take 1 Tablet (300 mg) by mouth daily. 90 Tablet 4 Active Active Problems No known active problems Encounters Date Type Department Care Team Description 12/28/2024 External Device Data STL ABSTRACTION Provider, Abstract 12/23/2024 External Device Data STL ABSTRACTION Provider, Abstract 12/22/2024 External Device Data STL ABSTRACTION Provider, Abstract 12/21/2024 External Device Data STL ABSTRACTION Provider, Abstract 11/10/2024 1:00 PM CDT Office Visit [facility] Oncology and Hematology - Moustapha [address] [place] [address] Mg Reynolds MD Essential thrombocytosis (CMS/HCC) (Primary Dx) 10/20/2024 External Device Data STL ABSTRACTION Provider, Abstract 10/09/2024 External Device Data STL ABSTRACTION Provider, Abstract 10/08/2024 External Device Data STL ABSTRACTION Provider, Abstract 10/06/2024 External Device Data STL ABSTRACTION Provider, Abstract from Last 3 Months Family History Medical [...] on file Legal Sex Female 8:57 AM EDGE POLISHER Gender Identity Not on file Sexual Orientation Not on file Last Filed Vital Signs Vital Sign Reading Time Taken Comments Blood Pressure 136/89 11/10/2024 1:13 PM CDT Pulse 79 11/10/2024 1:13 PM CDT Temperature 35.7 C (96.2 F) 11/10/2024 1:13 PM CDT Respiratory Rate 16 11/10/2024 1:13 PM CDT Oxygen Saturation 96% 11/10/2024 1:13 PM CDT Inhaled Oxygen Concentration - - Weight 61.8 kg (136 lb 3.2 oz) 11/10/2024 1:13 P M CDT Height 162.6 cm (5' 4) 07/16/2023 3:27 PM EDGE POLISHER Body Mass Index 23.38 07/16/2023 3:27 PM EDGE POLISHER Plan of Treatment Upcoming Encounters Date Type Department Care Team (Late st Contact Info) Description 02/10/2025 11:45 AM CDT Office Visit [facility] Oncology and Hematology - Moustapha [address] [place] [address] Mg Reynolds MD [address] [facility] [address] [place] [address] Health Maintenance Due Date Last Done Comments DTAP/TDAP/TD VACCINES (1 - Tdap) 1968 COLORECTAL SCREENING 1994 FIT-DNA Q 3 years 1994 Flex Sig/CT Colonography Q 5 years 1994 PNEUMOCOCCAL VACCINE 50+ YEARS (1 of 1 - PCV) 08/20/19 00 ZOSTER VACCINE (1 of 2) 1999 OSTEOPOROSIS SCREENING 2014 INFLUENZA VACCINE (#1) 2024 RSV VACCINE (60+ [...] Recently Relevant to Health Maintenance Insurance AETNA [facility] [place] [address] Care Teams Maintenance Journeyman Relationship Specialty Start Date End Date Sunny Cortez MD [address] [place] [phone] PCP - General Family Practice 07/16/23
== END 2025-01-06 13:47 | disposition home or self-care (01) ==
LOC: ANHIMG 13:49
PROVIDERS: PCP Family Medicine; Visit Provider Family Medicine
DX: Z78.0 Asymptomatic menopausal state (principal)
CPT/HCPCS: 77080

== ENCOUNTER 2025-02-08 08:47 | Outpatient (CLI) | payer MEDICARE, SELFPAY ==
--- OUTSIDE RECORDS SUMMARY | 2025-02-08 08:51 | XMS_ITS | Clinical Summary ---
Author Organization [facility] Address [facility] [place] [address] Care Team Providers Care Bottle Selector Name Role Phone Lex Grimm MD Primary Care Provider [phone] Social History Tobacco Use Types Packs/Day Years Used Date Smoking Tobacco: Never Assessed Comments Unknown Sex and Gender Information Value Date Recorded Sex Assigned at Not on file Legal Sex Female 4:31 PM CDT Gender Identity Not on file Sexual Orientation Not on file Last Filed Vital Signs Vital Sign Reading Time Taken Comments Blood Pressure 142/82 08/19/2016 10:29 AM CATASTROPHE CLAIMS SUPERVISOR Pulse - - Temperature - - Respiratory Rate - - Oxygen Saturation - - Inhaled Oxygen Concentration - - Weight 52.6 kg (116 lb) 07/05/2016 8:46 AM CATASTROPHE CLAIMS SUPERVISOR Height 163.8 cm (5' 4.5) 07/05/2016 8:46 AM CATASTROPHE CLAIMS SUPERVISOR Body Mass Index 19.6 07/05/2016 8:46 AM CATASTROPHE CLAIMS SUPERVISOR Plan of Treatment Health Maintenance Due Date Last Done Comments Colorectal Cancer Screening Colonoscopy (10 Years) 1949 Hepatitis C 1967 DTaP, Tdap and Td Vaccines ( 1 - Tdap) 1968 Pneumococcal Vaccine: 50+ Ye ars (1 of 1 - PCV) 1999 Zoster Vaccines (1 of 2) 1999 Dexa Scan (General) 2014 COVID-19 Vaccine ( - 2023-2 5 [...] age to complete this topic Care Teams Bottle Selector Relationship Specialty Start Date End Date Lex Grimm MD PCP - General 09/16/16
--- OUTSIDE RECORDS SUMMARY | 2025-02-08 08:51 | XMS_ITS | Referral Summary ---
Author Organization [facility] Address [address] [place] [phone] Care Team Providers Care Thoracic Medicine Specialist Name Role Phone No, Physician Primary [...] on file Legal Sex Female 12:38 PM SENIOR TECHNICAL TRAINER Gender Identity Not on file Sexual Orientation Not on file Plan of Treatment Not on file Insurance MEDICARE COMMERCIAL GENERIC Care Teams Thoracic Medicine Specialist Relationship Specialty Start Date End Date No, Physician PCP - General 12/03/18
--- OUTSIDE RECORDS SUMMARY | 2025-02-08 08:51 | XMS_ITS | Clinical Summary ---
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
--- OUTSIDE RECORDS SUMMARY | 2025-02-08 08:51 | XMS_ITS | Patient Health Record ---
Author Organization [facility] Address [address] [place], [place] [id number] Care Team Providers Care Program Director Air Talent Name Role Phone KATE ZUNIGA Unavailable [phone] Ky Lujan Unavailable Unavailable Reason For Referral No Information Plan Of Treatment No Information Insurance Providers Payer Name Payer Address Payer Phone Subscriber Number Group Number Insured Name Patient Relationship to Insured Coverage Start Date Coverage End Date Medicare Part B [place] [address] [facility] [id number] KRISTOPHER CARTER Self - patient is the insured [employer] [address] [place] [address] [id number] KRISTOPHER CARTER Self - patient is the insured
--- OUTSIDE RECORDS SUMMARY | 2025-02-08 08:51 | XMS_ITS | Clinical Summary ---
Author Organization [facility] Sol Reynoso Address [address] [place] [address] Care Team Providers Care Registered Account Administrator Name Role Phone Sunny Cortez MD Primary Care Provider [phone] Allergies Active Allergy Reactions Criticality Noted Date [...] by mouth. Active iron/folic ac/vit Bcomp,C/min (B [id number] E-FA ORAL) Take by mouth. Acti ve OTHER Ashwaganda 600mg Premagen Active melatonin 1 mg Tablet Take 1 mg by mouth nightly as needed. Active allopurinoL (ZYLOPRIM) 300 mg tablet Take 1 Tablet (300 mg) by mouth daily. 90 Tablet 4 Active Active Problems No known active problems Encounters Date Type Department Care Team Description 01/25/2025 External Device Data STL ABSTRACTION Provider, Abstract 01/18/2025 External Device Data STL ABSTRACTION Provider, Abstract 12/28/2024 External Device Data STL ABSTRACTION Provider, Abstract 12/23/2024 External Device Data STL ABSTRACTION Provider, Abstract 12/22/2024 External Device Data STL ABSTRACTION Provider, Abstract 12/21/2024 External Device Data STL ABSTRACTION Provider, Abstract 11/10/2024 1:00 PM CDT Office Visit [facility] Oncology and Hematology - Moustapha [address] [place] [id number] Mg Reynolds MD Essential thrombocytosis (CMS/HCC) (Primary Dx) from Last 3 Months Family History Medical [...] on file 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 Gender Identity Not on file Sexual Orientation [...] 162.6 cm (5' 4) 07/16/2023 3:27 PM BONE CHAR PULLER Body Mass Index 23.38 07/16/2023 3:27 PM BONE CHAR PULLER Plan of Treatment Upcoming Encounters Date Type Department Care Team (Late st Contact Info) Description 02/10/2025 11:45 AM CDT Office Visit [facility] Oncology and Hematology - Moustapha [address] [place] [phone] Mg Reynolds MD [address] [facility] [address] [place] [address] Health Maintenance Due Date Last Done Comments DTAP/TDAP/TD VACCINES (1 - Tdap) 1968 COLORECTAL SCREENING 1994 FIT-DNA Q 3 years 1994 Flex Sig/CT Colonography Q 5 years 1994 PNEUMOCOCCAL VACCINE 50+ YEARS (1 of 1 - PCV) 08/20/19 00 ZOSTER VACCINE (1 of 2) 1999 OSTEOPOROSIS SCREENING 2014 [place] ([place]) Prev entative Visit/Annual Wellness Visit 08/04/2024 RSV VACCINE (60+ or ) (1 - 1-dose 75+ series) 2024 INFLUENZA VACCINE (#1) 2025 Colorectal Cancer Screening 03/12/2025 FIT/FOBT Q 1 [...] Most Recently Relevant to Health Maintenance [facility] Address: [facility] [id number] [place] [address] Care Teams Registered Account Administrator Relationship Specialty Start Date End Date Sunny Cortez MD [address] [place] [id number] PCP - General Family Practice 07/16/23
[2025-02-08 09:08] LABS: Hematocrit 46.6 % (37.0-47.0); Hemoglobin 15.5 g/dL (12.0-15.0); Mean Corpuscular HGB Conc 33.3 g/dl (32-36); Mean Corpuscular Hemoglobin 29.6 pg (26-34); Mean Corpuscular Volume 89.1 fl (80-100); Platelet Count Result 753 k/mm3 (150-375); Red Blood Count 5.23 M/mm3 (4.2-5.4); White Blood Count 9.7 K/mm3 (4.5-10.0)
== END 2025-02-08 08:48 | disposition home or self-care (01) ==
PROVIDERS: PCP Family Medicine; Visit Provider Internal Medicine Hematology & Oncology
DX: D47.3 Essential (hemorrhagic) thrombocythemia (principal)
CPT/HCPCS: 36415; 85027

== ENCOUNTER 2025-02-15 10:51 | Outpatient (CLI) | payer MEDICARE, SELFPAY ==
--- NOTE | ~2025-02-15 | MM_ITS ---
EXAMINATION: MM screening jelly BI w elise HISTORY: Screening TECHNIQUE: Craniocaudal and mediolateral oblique 3-D tomosynthesis images were obtained and synthetic 2-D images were generated. CAD analysis was submitted and interpreted. COMPARISON: Comparison to multiple prior studies sequentially, with oldest reviewed study dated 10/2019. BREAST PARENCHYMAL COMPOSITION: Dense: The breasts are heterogeneously dense, which may obscure small masses FINDINGS: There is no evidence of suspicious mass, calcification, or architectural distortion to sugg est malignancy in either breast. There has been no suspicious interval change. IMPRESSION: 1. No mammographic evidence of malignancy. 2. Recommend routine screening mammography in one year. BI-RADS Category 1: Negative Reviewed, dictated and finalized at location B.
== END 2025-02-15 10:52 | disposition home or self-care (01) ==
LOC: MICIMG 10:53
PROVIDERS: PCP Family Medicine; Visit Provider Family Medicine
DX: Z12.31 Encounter for screening mammogram for malignant neoplasm of breast (principal)
CPT/HCPCS: 77063; 77067

== ENCOUNTER 2025-03-21 09:41 | Outpatient (CLI) | payer MEDICARE, SELFPAY ==
[2025-03-21 09:59] LABS: Hematocrit 46.3 % (37.0-47.0); Hemoglobin 15.7 g/dL (12.0-15.0); Immature Granulocyte Percent A 0.6 % (0-0.5); Lymphocytes Absolute Auto 1.07 K/mm3 (0.9-3.2); Mean Corpuscular HGB Conc 33.9 g/dl (32-36); Mean Corpuscular Hemoglobin 29.7 pg (26-34); Mean Corpuscular Volume 87.5 fl (80-100); Nucleated Red Blood Cells Absolute Auto 0.000 K/mm3 (0.0-0.012); Nucleated Red Blood Cells Perc 0.0 % (0.0-0.2); Platelet Count Result 622 k/mm3 (150-375); Red Blood Count 5.29 M/mm3 (4.2-5.4); White Blood Count 8.4 K/mm3 (4.5-10.0)
--- OUTSIDE RECORDS SUMMARY | 2025-03-21 10:27 | XMS_ITS | Clinical Summary ---
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
--- OUTSIDE RECORDS SUMMARY | 2025-03-21 10:27 | XMS_ITS | Clinical Summary ---
Author Organization [facility] Erasmoelizabeth Reynoso Address [address] [place] [address] Care Team Providers Care Park Warden Name Role Phone Sunny Cortez MD Primary Care Provider [phone] Allergies Active Allergy Reactions Criticality Noted Date [...] by mouth. Active iron/folic ac/vit Bcomp,C/min (B [id number] E-FA ORAL) Take by mouth. Acti ve OTHER Ashwaganda 600mg Premagen Active melatonin 1 mg Tablet Take 1 mg by mouth nightly as needed. Active allopurinoL (ZYLOPRIM) 300 mg tablet Take 1 Tablet (300 mg) by mouth daily. 90 Tablet 4 Active anagrelide (AGRYLIN) 1 mg capsule Take 1 Capsule (1 mg) by mouth 2 times daily. 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 Gender Identity Not on file Sexual Orientation Not on file Last Filed Vital Signs Vital Sign Reading Time Taken Comments Blood Pressure 112/82 02/10/2025 11:51 AM CDT Pulse 90 02/10/2025 11:51 AM CDT Temperature 36.6 C (97.8 F) 02/10/2025 11:51 AM CDT Respiratory Rate 16 02/10/2025 11:51 AM CDT Oxygen Saturation 93% 02/10/2025 11:51 AM CDT Inhaled Oxygen Concentration - - Weight 62.8 kg (138 lb 6.4 oz) 02/10/2025 11:51 AM CDT Height 162.6 cm (5' 4) 07/16/2023 3:27 PM REGIONAL OPERATIONS MANAGER Body Mass Index 23.76 07/16/2023 3:27 PM REGIONAL OPERATIONS MANAGER Plan of Treatment Upcoming Encounters Date Type Department Care Team (Late st Contact Info) Description 03/22/2025 11:15 AM CDT Office Visit [facility] Oncology and Hematology - Moustapha [address] [facility] [address] [place] [address] Mg Reynolds MD [address] [facility] [address] [place] [address] Health Maintenance Due Date Last Done Comments DTAP/TDAP/TD VACCINES (1 - Tdap) 1968 COLORECTAL SCREENING 1994 FIT-DNA Q 3 years 1994 Flex Sig/CT Colonography Q 5 years 1994 PNEUMOCOCCAL VACCINE 50+ YEARS (1 of 1 - PCV) 08/20/19 00 ZOSTER VACCINE (1 of 2) 1999 OSTEOPOROSIS SCREENING 2014 Medicare Advantage ([place]) Prev entative Visit/Annual Wellness Visit 08/04/2024 RSV [...] Recently Relevant to Health Maintenance Insurance [employer] [facility] [place] [facility] [place] Address: [facility] [id number] [place] [address] Care Teams Park Warden Relationship Specialty Start Date End Date Sunny Cortez MD [address] [place] [phone] PCP - General Family Practice 07/16/23
--- OUTSIDE RECORDS SUMMARY | 2025-03-21 10:27 | XMS_ITS | Patient Health Record ---
Author Organization [facility] Address [address] [place], [place] [address] Care Team Providers Care Metal Container Maker Name Role Phone KATE ZUNIGA Unavailable [phone] Ky Lujan Unavailable Unavailable Reason For Referral No Information Plan Of Treatment No Information Insurance Providers Payer Name Payer Address Payer Phone Subscriber Number Group Number Insured Name Patient Relationship to Insured Coverage Start Date Coverage End Date Medicare Part B [place] [address] [facility] [place] [phone] [id number] KRISTOPHER CARTER Self - patient is the insured [employer] [address] [place] [address] [phone] [id number] KRISTOPHER CARTER Self - patient is the insured
[2025-03-21 17:43] LABS: Anion Gap 11 mmol/L (4-12); Blood Urea Nitrogen 12 mg/dL (7-17); Calcium 9.8 mg/dL (8.4-10.2); Carbon Dioxide 23 mmol/L (22-30); Chloride 102 mmol/L (98-107); Estimated Glomerular Filt Rate > 60; Glucose 61 mg/dL (65-110); Potassium 4.1 mmol/L (3.4-5.0); Sodium 136 mmol/L (137-145)
== END 2025-03-21 09:42 | disposition home or self-care (01) ==
LOC: ANHLAB 09:43
PROVIDERS: PCP Family Medicine; Visit Provider Internal Medicine Hematology & Oncology
DX: D47.3 Essential (hemorrhagic) thrombocythemia (principal)
CPT/HCPCS: 36415; 80048; 85025

== ENCOUNTER 2025-05-10 10:03 | Outpatient (CLI) | payer MEDICARE, SELFPAY ==
[2025-05-10 10:22] LABS: Hematocrit 46.8 % (37.0-47.0); Hemoglobin 15.5 g/dL (12.0-15.0); Immature Granulocyte Percent A 0.7 % (0-0.5); Lymphocytes Absolute Auto 0.93 K/mm3 (0.9-3.2); Mean Corpuscular HGB Conc 33.1 g/dl (32-36); Mean Corpuscular Hemoglobin 29.2 pg (26-34); Mean Corpuscular Volume 88.1 fl (80-100); Nucleated Red Blood Cells Absolute Auto 0.000 K/mm3 (0.0-0.012); Nucleated Red Blood Cells Perc 0.0 % (0.0-0.2); Platelet Count Result 510 k/mm3 (150-375); Red Blood Count 5.31 M/mm3 (4.2-5.4); White Blood Count 8.3 K/mm3 (4.5-10.0)
[2025-05-10 10:51] LABS: Anion Gap 6 mmol/L (4-12); Blood Urea Nitrogen 16 mg/dL (7-17); Calcium 9.6 mg/dL (8.4-10.2); Carbon Dioxide 27 mmol/L (22-30); Chloride 102 mmol/L (98-107); Estimated Glomerular Filt Rate > 60; Glucose 96 mg/dL (65-110); Potassium 3.8 mmol/L (3.4-5.0); Sodium 135 mmol/L (137-145)
--- OUTSIDE RECORDS SUMMARY | 2025-05-10 10:54 | XMS_ITS | Clinical Summary ---
Author Organization [facility] Address [facility]ly [facility] [place] [address] Care Team Providers Care Lot Worker Name Role Phone Lex Grimm MD Primary Care Provider [phone] Social History Tobacco Use Types Packs/Day Years Used Date Smoking Tobacco: Never Assessed Comments Unknown Sex and Gender Information Value Date Recorded Sex Assigned at Not on file Legal Sex Female 4:31 PM CDT Gender Identity Not on file Sexual Orientation Not on file Last Filed Vital Signs Vital Sign Reading Time Taken Comments Blood Pressure 142/82 08/19/2016 10:29 AM SECURITY ESCORT Pulse - - Temperature - - Respiratory Rate - - Oxygen Saturation - - Inhaled Oxygen Concentration - - Weight 52.6 kg (116 lb) 07/05/2016 8:46 AM SECURITY ESCORT Height 163.8 cm (5' 4.5) 07/05/2016 8:46 AM SECURITY ESCORT Body Mass Index 19.6 07/05/2016 8:46 AM SECURITY ESCORT Plan of Treatment Health Maintenance Due Date Last Done Comments Colorectal Cancer Screening Colonoscopy (10 Years) 1949 Hepatitis C 1967 DTaP, Tdap and Td Vaccines ( 1 - Tdap) 1968 Pneumococcal Vaccine: 50+ Ye ars (1 of 1 - PCV) 1999 Zoster Vaccines (1 of 2) 1999 Dexa Scan (General) 2014 RSV Immunization or 60+ Years (1 - 1-dose 75+ series) 2024 COVID-19 Vaccine ( - 2023-2 5 season) 2025 Meningococcal B Vaccine Aged Out No l onger eligible based on patient's age to complete this topic Meningococcal Vaccine Aged Out No joseph gwyn eligible based on patient's age to complete this topic RSV Immunizations Under 20 Months Aged Out No longer eligible based on patient's age to complete this topic Care Teams Lot Worker Relationship Specialty Start Date End Date Lex Grimm MD PCP - General 09/16/16
--- OUTSIDE RECORDS SUMMARY | 2025-05-10 10:54 | XMS_ITS | Clinical Summary ---
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
--- OUTSIDE RECORDS SUMMARY | 2025-05-10 10:54 | XMS_ITS | Clinical Summary ---
Author Organization [facility] Sol Reynoso Address [address] [place] [address] Care Team Providers Care Research Geologist Name Role Phone Sunny Cortez MD Primary Care Provider [phone] Allergies Active Allergy Reactions Criticality Noted Date [...] by mouth. Active iron/folic ac/vit Bcomp,C/min (B [id number]- FE-FA ORAL) Take by mouth. Act blair OTHER Ashwaganda 600mg Premagen Active melatonin 1 mg Tablet Take 1 mg by mouth nightly as needed. Active allopurinoL (ZYLOPRIM) 300 mg tablet Take 1 Tablet (300 mg) by mouth daily. 90 Tablet 05/03/20 24 Active anagrelide (AGRYLIN) 1 mg capsule Take 1 Capsule (1 mg) by mouth daily. 30 Capsule 1 04/13/20 25 Active anagrelide (AGRYLIN) 1 mg capsule Take 1 Capsule (1 mg) by mouth 2 times daily. 60 Capsule 02/11/20 25 025 Discontinued Active Problems No known active problems Encounters Date Type Department Care Team Description 04/26/2025 External Device Data STL ABSTRACTION Provider, Abstract 04/19/2025 External Device Data STL ABSTRACTION Provider, Abstract 04/12/[address] [facility] Oncology and Hematology - Moustapha [address] [place] [address] Mg Reynolds MD 03/22/2025 11:15 AM CDT Office Visit [facility] Oncology and Hematology [facility] [address] Mg Reynolds MD Essential thrombocytosis (CMS/HCC) (Primary Dx) 03/22/[address] [facility] Oncology and Hematology - Moustapha [address] [place] [address] Mg Reynolds MD 03/21/[address] [facility] Oncology and Hematology - Moustapha [address] [place] [address] Mg Reynolds MD 02/16/2025 External Device Data STL ABSTRACTION Provider, Abstract 02/15/2025 External Device Data STL ABSTRACTION Provider, Abstract 02/10/2025 11:45 AM CDT Office Visit 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 Gender Identity Not on file Sexual Orientation Not on file Last Filed Vital Signs Vital Sign Reading Time Taken Comments Blood Pressure 112/72 03/22/2025 10:50 AM CDT Pulse 95 03/22/2025 10:50 AM CDT Temperature 36.2 C (97.2 F) 03/22/2025 10:50 AM CDT Respiratory Rate 16 03/22/2025 10:50 AM CDT Oxygen Saturation 96% 03/22/2025 10:50 AM CDT Inhaled Oxygen Concentration - - Weight 61.8 kg (136 lb 3.2 oz) 03/22/2025 10:50 AM CDT Height 162.6 cm (5' 4) 07/16/2023 3:27 PM SQUARING SHEAR OPERATOR Body Mass Index 23.38 07/16/2023 3:27 PM SQUARING SHEAR OPERATOR Plan of Treatment Upcoming Encounters Date Type Department Care Team (Late st Contact Info) Description 05/12/2025 11:00 AM CDT Office Visit [facility] Oncology and Hematology - Moustapha [address] [facility] [address] [place] [address] Mg Reynolds MD [address] [facility] [address] [place] [address] Health Maintenance Due Date Last Done Comments DTAP/TDAP/TD VACCINES (1 - Tdap) 1968 COLORECTAL SCREENING 1994 FIT-DNA Q 3 years 1994 Flex Sig/CT Colonography Q 5 years 1994 PNEUMOCOCCAL VACCINE 50+ YEARS (1 of 1 - PCV) 08/20/19 00 ZOSTER VACCINE (1 of 2) 1999 OSTEOPOROSIS SCREENING 2014 [place] Prev entative Visit/Annual Wellness Visit 08/04/2024 RSV VACCINE (60+ or ) (1 - 1-dose 75+ series) 2024 INFLUENZA VACCINE (#1) 2025 Colorectal Cancer Screening 03/12/2025 FIT/FOBT Q 1 year 03/12/2025 03/12/2024 Procedures Procedure Name Priority Date/Time Associated Diagnosis Comments CBC WITH AUTODIFFERENTIAL Routine 2024 2:29 PM CDT BASIC METABOLIC PANEL Routine 03/21/2025 10:35 AM CDT CHG BLOOD OCCULT FECAL HGB DETER IA QUAL FECES 1-3 Routine 03/12/2024 3:33 PM CDT from Last 3 Months or Most Recently Relevant to Health Maintenance Results * CBC WITH AUTODIFFERENTIAL (03/21/2025 2:29 PM CDT) Blood Mg Reynolds MD HEMATOLOGY ORDERABLES Final Res ult * BASIC METABOLIC PANEL (03/21/2025 10:35 AM CDT) Blood Mg Reynolds MD CHEMISTRY ORDERABLES Final Resu lt * CHG BLOOD OCCULT FECAL HGB DETER IA QUAL FECES 1-3 (03/12/2024 3:33 PM CDT) Mg Reynolds MD CHG - LABORATORY Final Result from Last 3 Months or Most Recently Relevant to Health Maintenance Insurance [facility] M[facility] Care Teams Research Geologist Relationship Specialty Start Date End Date Sunny Cortez MD [address] [place] [address] PCP - General Family Practice 07/16/23
--- OUTSIDE RECORDS SUMMARY | 2025-05-10 10:54 | XMS_ITS | Patient Health Record ---
Author Organization [facility] Address [address] [place], [place] [address] Care Team Providers Care Biodiesel Division Manager Name Role Phone KATE ZUNIGA Unavailable [phone] Ky Lujan Unavailable Unavailable Reason For Referral No Information Plan Of Treatment No Information Insurance Providers Payer Name Payer Address Payer Phone Subscriber Number Group Number Insured Name Patient Relationship to Insured Coverage Start Date Coverage End Date Medicare Part B [place] [address] [facility] [place] [id number] KRISTOPHER CARTER Self - patient is the insured [employer] [address] [place] [id number] KRISTOPHER CARTER Self - patient is the insured
== END 2025-05-10 10:04 | disposition home or self-care (01) ==
LOC: ANHLAB 10:07
PROVIDERS: PCP Family Medicine; Visit Provider Internal Medicine Hematology & Oncology
DX: D47.3 Essential (hemorrhagic) thrombocythemia (principal)
CPT/HCPCS: 36415; 80048; 85025

== ENCOUNTER 2025-07-09 08:24 | Outpatient (CLI) | payer MEDICARE, SELFPAY ==
[2025-07-09 10:17] LABS: Hematocrit 46.3 % (37.0-47.0); Hemoglobin 15.4 g/dL (12.0-15.0); Immature Granulocyte Percent A 0.3 % (0-0.5); Lymphocytes Absolute Auto 0.90 K/mm3 (0.9-3.2); Mean Corpuscular HGB Conc 33.3 g/dl (32-36); Mean Corpuscular Hemoglobin 29.3 pg (26-34); Mean Corpuscular Volume 88.0 fl (80-100); Nucleated Red Blood Cells Absolute Auto 0.000 K/mm3 (0.0-0.012); Nucleated Red Blood Cells Perc 0.0 % (0.0-0.2); Platelet Count Result 552 k/mm3 (150-375); Red Blood Count 5.26 M/mm3 (4.2-5.4); White Blood Count 6.9 K/mm3 (4.5-10.0)
[2025-07-09 10:35] LABS: Alanine Aminotransferase 45 U/L (6-35); Albumin Level 4.6 g/dL (3.5-5.1); Alkaline Phosphatase 76 U/L (38-126); Anion Gap 5 mmol/L (4-12); Aspartate Amino Transferase 43 U/L (14-36); Bilirubin,Total 0.9 mg/dL (0.2-1.3); Blood Urea Nitrogen 10 mg/dL (7-17); Calcium 9.6 mg/dL (8.4-10.2); Carbon Dioxide 27 mmol/L (22-30); Chloride 104 mmol/L (98-107); Cholesterol 158 mg/dL (0-200); Estimated Glomerular Filt Rate > 60; Glucose 90 mg/dL (65-110); HDL Direct 88 mg/dL; Potassium 4.0 mmol/L (3.4-5.0); Sodium 136 mmol/L (137-145); Total Protein 7.7 g/dL (6.3-8.2); Triglycerides 53 mg/dL (<150)
[2025-07-09 11:07] LABS: Thyroid Stimulating Hormone 3.290 uIU/mL (0.465-4.680)
== END 2025-07-09 08:25 | disposition home or self-care (01) ==
PROVIDERS: PCP Family Medicine; Visit Provider Family Medicine
DX: E78.5 Hyperlipidemia, unspecified (principal); E03.9 Hypothyroidism, unspecified; D75.839 Thrombocytosis, unspecified; F41.9 Anxiety disorder, unspecified; R42 Dizziness and giddiness; Z79.899 Other long term (current) drug therapy
CPT/HCPCS: 36415; 80053; 80061; 82306; 84443; 85025